=== PATIENT | female | born 1945 | race Caucasian/White ===

== ENCOUNTER 2017-12-29 20:06 | Inpatient (IN) | payer BC ==
[~2017-12-29] VITALS: Ht 157.5 cm; Wt 61.0 kg
[2017-12-29] VITALS (13 sets, daily range): BP systolic 139–268; BP diastolic 60–139
--- NOTE | ~2017-12-29 | CON ---
[place], [place] REPORT OF CONSULTATION NAME: CHARLES SINGH UNIT #: [id number] ROOM: 403 DOCTOR: AGUSTIN CHIRINOS MD BIRTHDATE: [birth year] DOS: 12/30/2017 REASON FOR CONSULTATION: Elevated troponin and shortness of breath. HISTORY OF PRESENT ILLNESS: This is a 72-year-old patient with history of hypertension, chronic kidney disease, dyslipidemia, came to the Emergency Room for sudden onset of shortness of breath. She was doing her house chores most of the day and suddenly became short of breath. The patient had no associated symptoms of any wheezing or hemoptysis. She presented to the Emergency Room and was admitted for shortness of breath and also atypical chest pain. Cardiology consulted for further recommendations. At the time of examination, the patient was alert. Denies any chest pains. Breathing is much better. Apparently at home when she has shortness of breath, she noted some chest discomfort in the midsternal area. She describes it as aching and tightness. No radiation. The pain lasted for several minutes. The pain was gradually relieved on its own. She denies any PND, orthopnea. No nausea, vomiting, diarrhea. No fever and chills. No cough, no hemoptysis, no hematuria or dysuria. The patient was on home oxygen. She has history of chronic renal failure, on hemodialysis. The patient still smokes at home. 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 She saw her sock and stocking ironer about 6 months ago and she did have a stress test around 6 months ago and as per her, it was unremarkable. REVIEW OF SYSTEMS: Review of the 10 systems negative except as mentioned above. PAST MEDICAL HISTORY: 1. Hypertension. 2. End-stage renal disease, on hemodialysis. 3. Dyslipidemia. 4. Diabetes type 2. 5. Family history of coronary artery disease. 6. Sinus bradycardia. 7. Psoriasis. 8. Diverticulitis. PAST SURGICAL HISTORY: History of dialysis catheter insertion in the right chest and also AV graft in the left wrist area. SOCIAL HISTORY: The patient does smoke cigarettes, does not drink or use illicit drugs. FAMILY HISTORY: Nil contributory. Father in his 70s from myocardial infarction. Mother had diabetes and coronary artery disease. ALLERGIES: The patient is allergic to PENICILLIN and ADHESIVE TAPE. HOME MEDICATIONS: Reviewed. PHYSICAL EXAMINATION: [place], [place] REPORT OF CONSULTATION NAME: CHARLES SINGH UNIT #: [id number] ROOM: [facility] DOCTOR: CANDIS BANGURAAGUSTIN BIRTHDATE: [birth year] VITAL SIGNS: Blood pressure 172/64, pulse 68, respiration rate is 18. GENERAL: Alert, comfortable, in no acute distress. NECK: Supple, no distended neck veins, no carotid bruit. CHEST: Symmetrical, nontender. The patient had a dialysis catheter in the right chest. LUNGS: A few scattered rhonchi, but good air entry bilaterally. HEART: Regular rhythm, no S3. Grade 1/6 systolic murmur. ABDOMEN: Benign, nontender. Bowel sounds normal. EXTREMITIES: Showed trace edema. Distal pulses palpable. SKIN: Warm and dry. No cyanosis, no clubbing. The patient had a left wrist area AV fistula. NEUROLOGIC: Alert and oriented. No focal neurologic deficit. RECTAL: Deferred. GENITOURINARY: Deferred. REVIEW OF THE DIAGNOSTIC TESTS: EKG shows sinus rhythm with LV hypertrophy with lateral ST-T changes. Her CBC, chemistry and cardiac enzymes reviewed. IMPRESSION: 1. Acute on chronic diastolic heart failure. 2. Borderline elevation of troponin. 3. Atypical chest pain. 4. Hypertension. 5. End-stage renal disease, on hemodialysis. 6. Tobacco use. 7. Sinus bradycardia. 8. Abnormal EKG due to left ventricular hypertrophy. 9. Diabetes type 2. RECOMMENDATIONS: 1. Start her aspirin 81 mg once daily and continue her beta nicole, labetalol, discontinue metoprolol. 2. Resume her home statins. 3. For blood pressure control, continue her lisinopril and amlodipine. 4. Continue hemodialysis for fluid removal. 5. A 2D echo will be done and pending. 6. Try to obtain her records from her sock and stocking ironer in [place], [place], especially her recent stress test around 07/2017. 7. No further cardiac testing at this time and this was discussed with the patient and all questions were answered. 8. She can be transferred to telemetry bed. [place], [place] REPORT OF CONSULTATION NAME: CHARLES SINGH UNIT #: [id number] ROOM: 403 DOCTOR: AGUSTIN CHIRINOS MD BIRTHDATE: [birth year] AGUSTIN CHIRINOS MD CM:CONSTR:REPORT OF CONSULTATION 2117 12/31/17 1600 interface
--- NOTE | ~2017-12-29 | EKG ---
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
--- NOTE | ~2017-12-29 | PR ---
[place], [place] PROGRESS NOTE NAME: CHARLES SINGH UNIT #: [id number] ROOM: 403 DOCTOR: AGUSTIN CHIRINOS MD BIRTHDATE: [birth year] DOS: 12/30/2017 REASON FOR VISIT: Hypertension and CHF. HISTORY OF PRESENT ILLNESS: The patient is feeling better. Denies any chest pain, shortness of breath, no palpitation, no dizziness, no orthopnea. Blood pressure still running high. REVIEW OF SYSTEMS: Review of the 8 systems negative except as mentioned above. PHYSICAL EXAMINATION: VITAL SIGNS: Systolic pressure 133-180, diastolic pressure of 55-70. Rhythm strips, the patient in sinus rhythm. GENERAL: Alert, comfortable, in no acute distress. NECK: Supple, no distended neck veins, no carotid bruit. CHEST: Symmetrical, nontender. Grade 3/6 systolic ejection murmur. LUNGS: Clear to auscultation bilaterally. HEART: Regular rhythm, no S3, no palpable thrills. ABDOMEN: Benign, nontender. Bowel sounds normal. EXTREMITIES: Show no edema. Distal pulses are palpable. SKIN: Warm and dry. No cyanosis, no clubbing. MEDICATIONS AND ALLERGIES: Reviewed. LABORATORY DATA: Reviewed. IMPRESSION: 1. Acute on chronic diastolic heart failure. 2. Accelerated hypertension. 3. End-stage renal disease, on dialysis. 4. Chronic obstructive pulmonary disease. 5. Tobacco use. 6. Valvular heart disease, at least moderate aortic stenosis. 2D echo is pending. RECOMMENDATIONS: Increase her amlodipine to 10 mg for blood pressure control. Continue her dialysis for fluid removal. The patient counseled to quit smoking. No further cardiac testing at this time. The patient did have a stress test around 07/2017 and reports were requested, especially to follow with her personal injury attorney in [place], [place] after the discharge. A 2D echo was done and pending. [place], [place] PROGRESS NOTE NAME: CHARLES SINGH UNIT #: [id number] ROOM: 403 DOCTOR: AGUSTIN CHIRINOS MD BIRTHDATE: [birth year] AGUSTIN CHIRINOS MD CM:NIKIATRANS [phone] AGUSTIN CHIRINOS MD 01/01/18 0730 interface
--- NOTE | ~2017-12-29 | EKG ---
[place], [place] ELECTROCARDIOGRAM REPORT NAME: CHARLES SINGH UNIT #: [id number] ROOM: 403 DOCTOR: DERIK DRAFT REPORT BIRTHDATE: [birth year] [facility] Test Date: 2017-12-29 Test Time: 21:03:01 Pat Name: CHARLES SINGH Department: Room: 403 Gender: F Builder Beam: SS RESP : 1945 Requested By: KIRBY HARDING Order Number: [id number] Reading MD: Abram Dotson MD Measurements Intervals [place] Rate: 75 P: 75 [place]: 138 QRS: 63 QRSD: 88 T: 167 QT: 399 QTc: 446 Interpretive Statements Sinus rhythm Biatrial enlargement LVH with secondary repolarization abnormality Electronically Signed On 01-01-2018 11:55:47 PDT by Abram Dotson MD CM:EKGRPT:ELECTROCARDIOGRAM REPORT 02 1155 KIRBY UMANZOR DRAFT REPORT KIRBY HARDING DO
--- NOTE | ~2017-12-29 | PR ---
[place], [place] [facility]GRESS NOTE [id number] UNIT #: [id number] ROOM: 403 DOCTOR: ELOISA ULRICH MD,MALINDA BIRTHDATE: [birth year] DOS: 12/31/2017 SUBJECTIVE: The patient was independently seen and examined in [id number] encounter. The patient today's pulmonary assessment. The history was assessed rather taken from the patient. Physical examination performed. Labs reviewed. Assessment and management of the patient personally completed. Note done by the medical officer psychiatry, was approved. The patient has been showing significant improvement in the respiratory status in the last 24 hours. She has a CTA of the chest done yesterday that shows evidence of bilateral pleural fluid, basilar area of compression atelectasis related to that. There was no evidence of pulmonary embolism. PHYSICAL EXAMINATION: VITAL SIGNS: Reviewed and noted as blood pressure 180/90. The remaining vital signs were normal. The pulse oxygen saturation noted as 94% on 3 liters cannula. LUNGS: The patient was noted without any wheeze or crackles. ABDOMEN: Soft, nontender. EXTREMITIES: No acute edema. LABORATORY DATA: BMP today: BUN 26, creatinine 4.12. IMPRESSION: Status post hemodialysis yesterday with bilateral pleural fluid with acute flash pulmonary edema, pleural fluid, basilar area of atelectasis, acute respiratory failure, resolved. PLAN OF MANAGEMENT: The patient could be discharged home per primary care team for this patient to be followed up by the Nephrology services and primary care physician. MALINDA AMIN MD CM:PNTRANS [id number] MALINDA ULRICH MD 12/31/17 1328 interface
--- NOTE | ~2017-12-29 | EKG ---
[place], [place] ELECTROCARDIOGRAM REPORT NAME: CHARLES SINGH UNIT #: [id number] ROOM: 403 DOCTOR: DERIK DRAFT REPORT BIRTHDATE: [birth year] [facility] Test Date: 2017-12-29 Test Time: 20:12:22 Pat Name: CHARLES SINGH Department: Room: 403 Gender: F Media Relations Associate: : 1945 Requested By: KIRBY HARDING Order Number: [id number] Reading MD: Abram Dotson MD Measurements Intervals [place] Rate: 108 P: 68 DE: 182 QRS: 71 QRSD: 91 T: 231 QT: 327 QTc: 439 Interpretive Statements Sinus tachycardia Biatrial enlargement Probable LVH with secondary repol abnrm Anterior ST elevation, probably due to LVH Electronically Signed On 01-01-2018 11:55:29 PDT by Abram Dotson MD CM:EKGRPT:ELECTROCARDIOGRAM REPORT 11 1155 KIRBY UMANZOR DRAFT REPORT KIRBY HARDING DO
--- NOTE | ~2017-12-29 | PR ---
[place], [place] PROGRESS NOTE NAME: CHARLES SINGH UNIT #: [id number] ROOM: 403 DOCTOR: AGUSTIN CHIRINOS MD BIRTHDATE: [birth year] DOS: 01/02/2018 REASON FOR VISIT: Valvular heart disease and hypertension. HISTORY OF PRESENT ILLNESS: The patient is feeling better. Denies any chest pain or palpitations. Her breathing is better. No dizziness. She is anticipating discharge home today. REVIEW OF SYSTEMS: Review of the 8 systems negative except as mentioned above. RHYTHM STRIPS: The patient is in sinus rhythm. PHYSICAL EXAMINATION: VITAL SIGNS: Blood pressure 142/56, pulse 56, respiration is 18. GENERAL: Alert, comfortable, in no acute distress. HEAD AND NECK: Neck is supple. No distended neck veins. No carotid bruit. CHEST: Nontender. LUNGS: Clear to auscultation bilaterally. HEART: Regular rhythm. No S3. Grade 3/6 systolic ejection murmur heard all over the precardium. No palpable thrills. ABDOMEN: Nontender. Bowel sounds normal. EXTREMITIES: Showed no edema. Distal pulses palpable. SKIN: Warm and dry. No cyanosis. No clubbing. MEDICATIONS: Reviewed. LABORATORY DATA: Reviewed. IMPRESSION: 1. Valvular heart disease with moderate aortic stenosis. 2. Accelerated hypertension, currently stable. 3. Sinus bradycardia, mild, asymptomatic. 4. Tobacco use. 5. Chronic obstructive pulmonary disease. 6. End-stage renal disease, on hemodialysis. RECOMMENDATIONS: 1. Blood pressure is stable. The patient has mild bradycardia and currently asymptomatic. 2. Continue current cardiac medications. 3. The patient counseled to quit smoking. 4. She can be discharged home today and follow with [facility] in 2-4 weeks. [place], [place] PROGRESS NOTE NAME: CHARLES SINGH UNIT #: [id number] ROOM: 403 DOCTOR: AGUSTIN CHIRINOS MD BIRTHDATE: [birth year] AGUSTIN CHIRINOS MD CM:PNTRANS [id number] AGUSTIN CHIRINOS MD 01/03/18 0453 interface
--- NOTE | ~2017-12-29 | PR ---
[place], [place] PROGRESS NOTE NAME: CHARLES SINGH UNIT #: [id number] ROOM: 403 DOCTOR: ELOISA ULRICH MD,MALINDA BIRTHDATE: [birth year] DOS: 01/01/2018 SUBJECTIVE: The patient was independently seen and examined, lbvg-[id number] encounter, history was confirmed. Labs reviewed for assessment and management personally completed. Note done by the medical reception specialist approved. She has been receiving hemodialysis today, but not discharged home yesterday because of uncontrolled hypertension with chest pain medication continued. Denies any shortness of breath, coughing, chest pain at this time. OBJECTIVE: VITAL SIGNS: This morning, normal temperature, respiratory rate 18, heart rate of 62, blood pressure 156/75 and earlier noted at 3:32 a.m. at 170/70. The pulse oxygen saturation recorded as 94% on room air. HEENT: Examination shows head was atraumatic. Eyes nonicterus. NECK: Supple. CARDIOVASCULAR: S1, S2 is audible. LUNGS: Noted without any wheeze or crackles. ABDOMEN: Soft, nontender. EXTREMITIES: Without any acute edema. IMPRESSION: Flash pulmonary edema, respiratory failure with bilateral pleural fluid with possibly superimposed congestive heart failure, history of end-stage renal failure. PLAN OF MANAGEMENT: Obtain PA lateral chest x-ray today. The patient after completion of hemodialysis to assess the resolution of the pleural fluid. There was no plan of intervention at this time. The patient is not responding to the current treatment. MALINDA AMIN MD CM:PNTRANS [id number] MALINDA ULRICH MD 01/23/18 0855 interface
--- NOTE | ~2017-12-29 | PR ---
[place], [place] PROGRESS NOTE NAME: CHARLES SINGH UNIT #: [id number] ROOM: 403 DOCTOR: ANDREY ARAUZ DO BIRTHDATE: [birth year] DOS: 01/01/2018 SUBJECTIVE: The patient was seen and examined during hemodialysis. She does complain of shortness of breath as well as a nonproductive cough today. She denies any fevers, chills, chest pain, nausea, abdominal pain or any change in bowel or bladder habits. She was not cleared for discharge yesterday due to her elevated blood pressures. Her systolic blood pressures had been running even in the 180s to 200s. The patient states that it is not uncommon for her to have systolic blood pressures in the 200s. OBJECTIVE: VITAL SIGNS: Last temperature was recorded at 97.6 degrees Fahrenheit, heart rate was 70, respiratory rate was 18, blood pressure was 170/70, pulse oximetry was 93% on room air. GENERAL APPEARANCE: She was awake, alert, responsive and cooperative. The patient was in no acute distress. HEENT: The head was normocephalic and atraumatic. The eyes were without lesions or ulcerations. NECK: The trachea appeared midline. CARDIOVASCULAR: Regular rate and rhythm were noted. Positive S1 and S2 sounds were heard. A grade 3/6 systolic murmur was auscultated. Both lower extremities were without edema. PULMONARY: Lungs were clear to auscultation bilaterally. ABDOMEN: Soft, nondistended and nontender to palpation. Bowel sounds were auscultated. EXTREMITIES: The bilateral lower extremities were without edema. No clubbing, cyanosis or erythema was present. A dialysis catheter was present to the right chest. LABORATORY DATA: CBC from today shows white count at 6.2, hemoglobin at 11.3, hematocrit at 34.8, platelets at 244. Chemistries from today shows sodium at 136, potassium at 4.7, chloride at 102, bicarbonate at 24, BUN at 50, creatinine at 5.47, glucose at 123, calcium at 8.9, phosphorus at 6.6, magnesium at 2.5. MICROBIOLOGY: Final blood cultures showed no bacterial growth. IMPRESSION: 1. Acute respiratory failure secondary to flash pulmonary edema likely as a result of the patient's hypertensive emergency on admission and this has clinically improved. 2. Hypertension. 3. End-stage renal disease, on hemodialysis. 4. History of chronic obstructive pulmonary disease. 5. Tobacco abuse. PLAN OF MANAGEMENT: A followup chest x-ray was ordered to evaluate for the status of any pleural effusions. The Cardiology and Nephrology services are also following the patient and it is noted that her current regimen of antihypertensives includes amlodipine 10 mg daily, clonidine 0.1 mg every 6 hours, hydralazine 25 mg every 8 hours, lisinopril 10 mg daily, and labetalol [place], [place] PROGRESS NOTE NAME: CHARLES SINGH UNIT #: [id number] ROOM: [facility] DOCTOR: ANDREY ARAUZ DO BIRTHDATE: [birth year] 200 mg every 12 hours and appears that the patient is pending an echocardiogram and also the patient did not qualify for home oxygen by her assessment yesterday. Andrey Arauz DO MALINDA AMIN MD CM:PNTRANS [id number] ANDREY ARAUZ DO 01/01/18 1113 interface
--- NOTE | ~2017-12-29 | PR ---
[place], [place] PROGRESS NOTE NAME: [id number] UNIT #: [id number] ROOM: 403 DOCTOR: ANDREY ARAUZ DO BIRTHDATE: [birth year] DOS: 12/31/2017 SUBJECTIVE: The patient was seen and examined at the bedside today. She denies fevers, chills, chest pain, palpitations, shortness of breath, coughing, wheezing, nausea, abdominal pain or any changes in bowel or bladder function. The patient states that she wishes to be discharged home today. She states that she may benefit from use of supplemental oxygen at home. OBJECTIVE: VITAL SIGNS: Show temperature at 98.5 degrees Fahrenheit, heart rate at 69, respiratory rate at 16, blood pressure at 180/80, pulse oximetry at 94% on 3 liters via nasal cannula. GENERAL APPEARANCE: She was awake, alert, responsive, cooperative and in no acute distress. HEENT: The head was normocephalic and atraumatic. The eyes were without lesions or ulcerations. NECK: Trachea appeared midline. CARDIOVASCULAR: Regular rate and rhythm were noted. A grade 3/6 systolic murmur was auscultated. Positive S1 and S2 sounds were heard. Both lower extremities were without edema for. PULMONARY: The lungs were clear to auscultation bilaterally. ABDOMEN: Soft, nondistended and nontender to palpation. Bowel sounds were auscultated. EXTREMITIES: The bilateral lower extremities were without edema. No clubbing, cyanosis or erythema was present. A dialysis catheter was present to the right chest. LABORATORY DATA: CBC from today shows white count at 6.7, hemoglobin at 11.8, hematocrit at 36.3, platelets at 259. Chemistries from today show sodium at 138, potassium at 4.0, chloride at 101, bicarbonate at 27, BUN at 26, creatinine at 4.12, glucose at 97, calcium at 9.3. IMPRESSION: 1. Pulmonary edema, which is improved. 2. History of chronic obstructive pulmonary disease. 3. Tobacco abuse. 4. End-stage renal disease, on hemodialysis. 5. Newly diagnosed diabetes. 6. Chest pain. 7. Hypertensive emergency. PLAN OF MANAGEMENT: The patient remains on bronchodilator therapy. Cardiology service is following for the patient's chest pain and they have also made changes to the patient's regimen of antihypertensives. She is currently on lisinopril 10 mg daily, amlodipine 5 mg daily and labetalol 200 mg twice a day. An echocardiogram is pending. The Nephrology Service is following for the patient's end-stage renal disease on hemodialysis and she received a session of hemodialysis yesterday. CTA performed yesterday on 12/30/2017 showed no evidence for pulmonary embolism. From a pulmonary standpoint, the patient is stable for discharge and an order has been placed to assess for home O2. [place], [place] PROGRESS NOTE NAME: CHARLES SINGH Chris UNIT #: [id number] ROOM: [facility] DOCTOR: ANDREY ARAUZ DO BIRTHDATE: [birth year] Andrey Arauz DO MALINDA AMIN MD CM:PNTRANS [id number] ANDREY ARAUZ DO 12/31/17 1105 interface
--- NOTE | ~2017-12-29 | PR ---
[place], [place] PROGRESS NOTE NAME: CHARLES SINGH UNIT #: [id number] ROOM: 403 DOCTOR: ANDREY ARAUZ DO BIRTHDATE: [birth year] DOS: 01/02/2018 SUBJECTIVE: The patient was seen and examined at the bedside. The patient states that she is feeling well today. She denies any fevers, chills, chest pain, shortness of breath, coughing, wheezing, abdominal pain, nausea or any changes in bowel or bladder habits. She is eager for discharge from the hospital. OBJECTIVE: VITAL SIGNS: Show temperature at 97.7 degrees Fahrenheit, heart rate at 56, respiratory rate at 18, blood pressure at 142/50, pulse oximetry at 96% on room air. GENERAL APPEARANCE: The patient was awake, alert, responsive and cooperative. She was in no acute distress. HEENT: Head was normocephalic and atraumatic. Eyes were without lesions or ulcerations. NECK: Trachea appeared midline. CARDIOVASCULAR: Regular rate and rhythm were noted. Positive S1 and S2 sounds were heard. A grade 3/6 systolic murmur was auscultated. Both lower extremities were without edema. PULMONARY: Lungs were clear to auscultation bilaterally. ABDOMEN: Soft, nondistended, nontender to palpation. Bowel sounds were auscultated. EXTREMITIES: Bilateral lower extremities were without edema. No clubbing, cyanosis or erythema was present. A dialysis catheter was present in the right chest. LABORATORY DATA: Most recent CBC from yesterday 01/01/2018 showed white count at 6.2, hemoglobin at 11.3, hematocrit at 34.8, platelets at 244. Most recent chemistries from 01/01/2018 yesterday showed sodium at 136, potassium at 4.7, chloride at 102, bicarbonate at 24, BUN at 50, creatinine at 5.47, glucose at 123, calcium at 8.9, phosphorus at 6.6, magnesium at 2.5. MICROBIOLOGY: Again, final blood culture showed no bacterial growth. IMAGING STUDIES: A chest x-ray obtained yesterday on 01/01/2018 showed chronic and operative thoracic change, this was regarding the right-sided vascular catheter for dialysis. Otherwise, no acute process was demonstrated on that chest x-ray. IMPRESSION: 1. Acute respiratory failure secondary to flash pulmonary edema. 2. Hypertension. 3. End-stage renal disease, on hemodialysis. 4. History of chronic obstructive pulmonary disease. 5. Tobacco abuse. PLAN OF MANAGEMENT: Again, the plain film of the chest obtained yesterday showed no pleural fluid. The Nephrology service has been following the patient for her end-stage renal disease on hemodialysis and they have also been managing [place], [place] PROGRESS NOTE NAME: CHARLES SINGH UNIT #: [id number] ROOM: [facility] DOCTOR: ANDREY ARAUZ DO BIRTHDATE: [birth year] her hypertension. Nephrology has indicated that the patient is stable for discharge from their standpoint. In addition, the Cardiology service has also been following the patient for suspected heart failure and they have also made adjustments to the patient's antihypertensive regimen. It appears that the patient's blood pressures since yesterday afternoon have remained relatively stable. Lastly, from a pulmonary standpoint, the patient is also stable for discharge. Andrey Arauz DO MALINDA AMIN MD CM:TERESSA [id number] ANDREY ARAUZ DO 01/02/18 1120 interface
--- NOTE | ~2017-12-29 | CON ---
[place], [place] REPORT OF CONSULTATION NAME: CHARLES SINGH UNIT #: [id number] ROOM: 403 DOCTOR: ELOISA ULRICH MDMALINDA BIRTHDATE: [birth year] DOS: 12/30/2017 PULMONARY CONSULTATION, EVALUATION AND MANAGEMENT CONSULTATION REQUESTED BY: Hospitalist services. REASON FOR CONSULTATION: For assessment of current acute respiratory failure assessment and management. HISTORY OF PRESENT ILLNESS: This is a 72-year-old white female patient who has been assessed today as the patient has been reported with symptoms of increased shortness of breath. Shortness of breath has been noted certainly of this patient at home in the morning. The patient stated that she has been noted with some cough and smoked a couple of cigarettes of her son. She denies symptoms of chest pain or hemoptysis. Shortness of breath has been noted significantly worsened. The patient has contacted the ambulance and brought to the hospital on 100% nonrebreather mask. The patient was admitted to the Intensive Care Unit for further assessment and medical management of the current problems. The EMS documentation was not available for the patient at this time. The triage nurses' report stated that the patient was noted with a dusky lip and she was brought to the hospital on 100% nonrebreather mask and also noted with an inability to obtain the blood pressure by the EMS. The patient given 1 tablet of sublingual nitroglycerin tablet. The respiratory rate of the patient recorded as 30 breaths per minute. The blood pressures, which were recorded in the Emergency Room on admission was noted as 265/137. The patient reported symptoms of tightness in the chest and the chest pain, which was described across the chest and the midsternal area and on the sides. The pain was described to be nonradiating, mild to moderate and pressure-like as well. She denies symptoms of wheezing. The cough has been noted minimal without any sputum expectoration. REVIEW OF SYSTEMS: CONSTITUTIONAL SYMPTOMS: Fatigue and tiredness noted without any symptoms of fever or chills. EYES: Denies any burning, redness, or tenderness. EARS, NOSE, THROAT SYMPTOMS: Denies sore throat, hoarseness, otalgia, postnasal drainage or epistaxis. CARDIOVASCULAR SYSTEM: Denies angina pain, edema, or pain of the lower extremity. GASTROINTESTINAL SYMPTOMS: Denies dysphagia, nausea, vomiting, diarrhea, abdominal pain, hematemesis, melena, or hematochezia. SKIN: Denies abnormal lesions or rashes. MUSCULOSKELETAL SYMPTOMS: No acute joint pain, redness, or tenderness. CENTRAL NERVOUS SYSTEM: Denies dizziness, headache, diplopia or syncopal episodes. Remaining systems were reviewed, they were noted all negative. PAST MEDICAL HISTORY: 1. Known with history of end-stage renal failure, on hemodialysis. [place], [place] REPORT OF CONSULTATION NAME: CHARLES SINGH UNIT #: [id number] ROOM: 403 DOCTOR: ELOISA ULRICH MD,[facility] BIRTHDATE: [birth year] 2. The patient with a history of chronic obstructive pulmonary disease. 3. Type 2 diabetes mellitus. 4. Diverticulosis and diverticulitis history. 5. Hyperlipidemia. 6. Psoriatic arthritis. SOCIAL HISTORY: The patient lives at home. She has been known with tobacco use. The patient previously stated is not smoking cigarettes until yesterday, she has smoked couple of cigarettes. She used to smoke about a pack of cigarettes per day. Denies any alcohol or any illicit drug use. FAMILY HISTORY: The patient's father at the age of 70 plus years due to complication of myocardial infarction. Mother with complication related to coronary artery disease and diabetes mellitus. HOME MEDICATIONS: Listed on admission; use of Renvela, tramadol, Lipitor, amlodipine, atorvastatin, Plavix, labetalol and metoprolol tartrate. DRUG ALLERGIES: THE PATIENT WAS NOTED ALLERGIC TO PENICILLINS. PHYSICAL EXAMINATION: GENERAL: This is a 72-year-old female patient who has been currently noted awake and alert without any acute distress. Height of 5 feet 2 inches, weight of 131 pounds, BMI 24. VITAL SIGNS: Shows a normal temperature, respiratory rate of 18 and 33 noted on admission. The heart rate of the patient noted as 111, sinus tachycardia and currently noted 54 beats per minute with bradyarrhythmia appeared to be sinus bradycardia. The blood pressure noted on admission was 265/137 and this morning noted as 172/89. Pulse oxygen saturation noted with the BiPAP as 92% saturation. This morning, resting on room air, the patient was recorded as 92% without any activity. HEENT: Head was atraumatic. Eyes nonicterus. NECK: Supple. CARDIOVASCULAR SYSTEM: S1, S2 audible. LUNGS: Noted with mild decreased breaths in the lung bases. There was no wheezing or crackles. Good breath sounds noted in the lungs bilaterally. ABDOMEN: Flat, soft, nontender. EXTREMITIES: Noted without any acute edema, clubbing or cyanosis. VISIBLE SKIN: No lesions or rashes. MUSCULOSKELETAL SYSTEM: Without any acute deformities. Cranial nerves 2-12 intact. LABORATORY DATA: CBC yesterday on admission; WBC count 16.2, hemoglobin and hematocrit normal, platelet count were normal. PT/PTT was noted as normal. The CMP that was done yesterday shows BUN 52, creatinine 6.80. Potassium was 5.6. The arterial blood gas that was done yesterday; 50% oxygen, pH of 7.30, pCO2 of 43.9, pO2 100. Lactic acid was noted yesterday at 0.7. The CBC of 12/30/2017 noted normal WBC count, hemoglobin 11.5, platelet count normal. CMP this morning; BUN 58, creatinine 7.0. Potassium is still elevated at 5.5. The chest x-ray 1 view that was done in the Emergency Room noted normal heart size with [place], [place] REPORT OF CONSULTATION NAME: CHARLES SINGH UNIT #: [id number] ROOM: 403 DOCTOR[facility] BIR[facility]: [birth year] pulmonary venous congestion marking noted, dialysis catheter noted in place with a right internal jugular venous approach. IMPRESSION: 1. The patient will be currently admitted to the hospital. The patient developed acute pulmonary edema as a result of hypertensive emergency. This had resulted in respiratory failure with interstitial edema. There was no clinical evidence of pneumonia at this time. The diagnosis of pulmonary embolism would be considered for the patient beside the flash pulmonary edema because of significant hypoxia noted on admission with the current chest pain. Cardiac enzymes that was done noted as normal. 2. History of nicotine abuse and chronic obstructive lung disease, does not seem to have acute exacerbation contributing to her current acute shortness of breath and other respiratory problems. 3. The patient with hyperkalemia related to the end-stage renal failure as well. PLAN OF MANAGEMENT: The patient's blood pressure has been treated with intravenous nitroglycerin and labetalol intravenous management. She has been getting antibiotic empirically for the pneumonia and that will be discontinued. CT of the chest has been ordered prior to the dialysis, which will be given today for the patient to exclude pulmonary embolism, other etiologies, which are not visible in the chest x-ray including possible pneumonia and other findings. Usual care, other supportive therapy, plan of management, complete abstinence of tobacco in the future was recommended. Use of the BiPAP as needed at this time for respiratory distress. Continue maximizing medical management of uncontrolled hypertension, which has been gradually improving. Sinus tachycardia has improved. Currently, noted sinus bradyarrhythmia with normal blood pressure range. The bradyarrhythmia does not require any intervention. Hemodialysis per order from Nephrology services will be continued. Other additional treatment changes continued to be made based on progression of the illness. Supportive care. DVT prophylaxis for the patient would be given as well. Other additional treatment changes will be ordered based on the progression of the illness. Thanks for allowing me to participate in the care of this patient. MALINDA AMIN MD CM:CONSTR:REPORT OF CONSULTATION 1304 12/30/17 9909 interface
--- NOTE | ~2017-12-29 | PR ---
[place], [place] PROGRESS NOTE NAME: CHARLES SINGH UNIT #: [id number] ROOM: 403 DOCTOR: ELOISA ULRICH MD,MALINDA BIRTHDATE: [birth year] DOS: 01/02/2018 SUBJECTIVE: The patient has been noted comfortable at this time without any acute distress, not reported with any acute new respiratory complaints, was eager for home discharge. She was independently seen and examined in gyil-sn-adec encounter, history was confirmed. Physical examination performed. Labs reviewed. The note done by the medical logistics specialist approved. The patient continued to show improvement in the respiratory symptom with flash pulmonary edema, improving pleural fluid. History of end-stage renal failure, resolving hemodialysis. The blood pressure has been noted progressively better controlled this morning, blood pressure noted 142/50. The patient would not require pulmonary followup and especially continued on current therapy as previously without any changes. MALINDA AMIN MD CM:PNTRANS [id number] MALINDA ULRICH MD 01/02/18 1329 interface
--- NOTE | ~2017-12-29 | PR ---
[place], [place] PROGRESS NOTE NAME: CHARLES SINGH UNIT #: [id number] ROOM: 403 DOCTOR: CANDIS BANGURA,AGUSTIN BIRTHDATE: [birth year] DOS: ADDENDUM PHYSICAL EXAMINATION: Grade 3/6 systolic ejection murmur. DIAGNOSTIC IMPRESSION: Valvular heart disease, at least moderate aortic stenosis. 2D echo is pending. RECOMMENDATIONS: A 2D echo was done and pending. AGUSTIN CHIRINOS MD CM:PNTRANS [phone] AGUSTIN CHIRINOS MD 01/01/18 0731 interface
--- NOTE | ~2017-12-29 | PR ---
[place], [place] PROGRESS NOTE NAME: CHARLES SINGH UNIT #: [id number] ROOM: 403 DOCTOR: AGUSTIN CHIIRNOS MD BIRTHDATE: [birth year] DOS: 01/01/2018 CARDIOLOGY FOLLOWUP VISIT NOTE REASON FOR VISIT: Congestive heart failure and valvular heart disease. SUBJECTIVE: The patient is feeling better. Denies any chest pain, shortness of breath, no dizziness, no syncope, no orthopnea. Her blood pressure has been running high. Today, she went for dialysis. REVIEW OF SYSTEMS: Review of the 10 systems negative except as mentioned above. PHYSICAL EXAMINATION: RHYTHM STRIPS: The patient is in sinus rhythm. VITAL SIGNS: Blood pressure 170/76, pulse 70, respiratory rate 16, weight 58.4 kilos. GENERAL: Alert, comfortable, in no acute distress. NECK: Supple, no distended neck veins, no carotid bruit. CHEST: Symmetrical, nontender. LUNGS: A few scattered rhonchi. HEART: Regular rhythm, no S3, no palpable thrills. A grade 3/6 systolic ejection murmur. ABDOMEN: Nontender. Bowel sounds normal. EXTREMITIES: Showed no edema. Distal pulses palpable. SKIN: Warm and dry. No cyanosis, no clubbing. RECTAL: Deferred. REVIEW OF DIAGNOSTIC TESTS: Labs reviewed as available. MEDICATIONS: Reviewed. IMPRESSION: 1. Acute on chronic diastolic heart failure, stable. 2. Moderate aortic stenosis. 3. End-stage renal disease, on hemodialysis. 4. Hypertension, which needs better control. Increase the hydralazine to 50 mg 3 times a day. RECOMMENDATIONS: 1. Continue her lisinopril, labetalol, Norvasc. 2. Clonidine was added by Dr. Wilson. 3. If the blood pressure is relatively stable, she can be discharged home today and follow up with [facility] in 2-3 weeks. The case was discussed with resident physicians and also Dr. Wilson, staff cementing bulk material operator. [place], [place] PROGRESS NOTE NAME: CHARLES SINGH UNIT #: [id number] ROOM: 403 DOCTOR: AGUSTIN CHIRINOS MD BIRTHDATE: [birth year] AGUSTIN CHIRINOS MD CM:TERESSA [id number] AGUSTIN CHIRINOS MD 02/24/18 0801 interface
[~2017-12-29 20:06] MED LIST: NO DAILY MEDS
[2017-12-29] MEDS ORDERED: CLOPIDOGREL75 MG PO (20:27)
[2017-12-29] MEDS ORDERED: AMLODIPINE BESYL5 MG PO (20:27)
[2017-12-29] MEDS ORDERED: LABETALOL HCL200 MG PO (20:27)
[2017-12-29 20:28] LABS: BASO % 0.2 % (0.0-1.0); EOS # 0.7 10*3/uL (0.0-0.4); EOS % 4.3 % (1.0-4.0); HEMATOCRIT 42.1 % (37.0-47.0); HEMOGLOBIN 13.7 g/dl (12.0-16.0); LYMPH # 3.4 10*3/uL (1.3-4.4); LYMPH % 20.7 % (27.0-41.0); MEAN CELL VOLUME 100.5 fl (81.0-99.0); MEAN CORPUSCULAR HGB 32.7 pg (27.0-31.0); MEAN CORPUSCULAR HGB CONC 32.5 g/dl (33.0-37.0); MEAN PLATELET VOLUME 10.2 fl (9.6-12.3); MONO # 0.8 10*3/uL (0.1-1.0); MONO % 5.2 % (3.0-9.0); NEUT # 11.2 10*3/uL (2.3-7.9); NEUT % 69.2 % (47.0-73.0); PLATELET COUNT AUTOMATED 302 10*3/uL (130-400); RED BLOOD COUNT 4.19 10*6/uL (4.10-5.10); RED CELL DISTRI WIDTH 13.6 % (0-14.5); WHITE BLOOD COUNT 16.2 10*3/uL (4.8-10.8)
[2017-12-29 20:43] LABS: ACT PARTIAL THROMBO TIME 23.3 SECONDS (20.8-31.5); INTERNATIONAL NORM RATIO 0.9 (2.0-3.5)
[2017-12-29 20:45] LABS: ALBUMIN 3.6 gm/dl (3.1-4.5); CREATININE 6.8 mg/dL (0.55-1.02); POTASSIUM 5.6 mmol/L (3.5-5.1); TOTAL PROTEIN 8.3 gm/dL (6.4-8.2)
[2017-12-29 20:46] LABS: TROPONIN I 0.023 ng/ml (<0.045)
[2017-12-29 21:24] LABS: ABG BASE EXCESS -4.8 mmol/L (-2.0-2.0); ABG HCO3 20.8 mmol/l (22-26); ABG O2 SATURATION 96.9 % (95-97); ARTERIAL BLOOD GAS PCO2 43.9 mmHg (35-45); ARTERIAL BLOOD GAS PH 7.3 (7.35-7.45)
[2017-12-30] VITALS: BP 131/62
[2017-12-30 04:00] VITALS: BP 159/68
[2017-12-30 05:30] LABS: BASO % 0.2 % (0.0-1.0); EOS # 0.1 10*3/uL (0.0-0.4); EOS % 1.4 % (1.0-4.0); HEMATOCRIT 36.5 % (37.0-47.0); LYMPH # 2.2 10*3/uL (1.3-4.4); LYMPH % 24.3 % (27.0-41.0); MEAN CELL VOLUME 102.5 fl (81.0-99.0); MEAN CORPUSCULAR HGB 32.3 pg (27.0-31.0); MEAN CORPUSCULAR HGB CONC 31.5 g/dl (33.0-37.0); MEAN PLATELET VOLUME 10.3 fl (9.6-12.3); MONO # 0.8 10*3/uL (0.1-1.0); MONO % 8.7 % (3.0-9.0); NEUT # 5.9 10*3/uL (2.3-7.9); NEUT % 65.2 % (47.0-73.0); PLATELET COUNT AUTOMATED 239 10*3/uL (130-400); RED BLOOD COUNT 3.56 10*6/uL (4.10-5.10); RED CELL DISTRI WIDTH 13.6 % (0-14.5); WHITE BLOOD COUNT 9.1 10*3/uL (4.8-10.8)
[2017-12-30 05:36] LABS: HEMOGLOBIN 11.5 g/dl (12.0-16.0)
[2017-12-30 05:48] LABS: ALBUMIN 3.1 gm/dl (3.1-4.5); POTASSIUM 5.5 mmol/L (3.5-5.1); TOTAL PROTEIN 6.9 gm/dL (6.4-8.2)
[2017-12-30 05:52] LABS: THYROID STIM HORMONE (HS) 0.82 uIU/ml (0.358-4.75)
[2017-12-30 05:56] LABS: PHOSPHOROUS 9.2 mg/dL (2.5-4.9)
[2017-12-30 08:00] VITALS: BP 172/64
[2017-12-30 08:40] LABS: VITAMIN D, 25-HYDROXY 36.5 ng/mL (30-100)
[2017-12-30] MEDS ORDERED: LIPITOR20 MG PO (09:10)
[2017-12-30] MEDS ORDERED: METOPROLOL25 MG PO (09:10)
[2017-12-30] MEDS ORDERED: TRAMADOL HCL50 MG PO (09:11)
[2017-12-30] MEDS ORDERED: RENVELA2.4 GM PO (09:13)
[2017-12-30] MEDS ORDERED: RENVELA800 MG PO (09:14)
[2017-12-30 12:00] VITALS: BP 172/89
[2017-12-30 16:00] VITALS: BP 168/68
[2017-12-30 16:52] LABS: BILIRUBIN NEGATIVE (NEGATIVE); BLOOD TRACE-INTACT (NEGATIVE); CLARITY CLEAR (CLEAR); COLOR YELLOW (YELLOW); GLUCOSE TRACE (NEGATIVE); KETONE NEGATIVE (NEGATIVE); LEUKO ESTERASE NEGATIVE (NEGATIVE); NITRITE NEGATIVE (NEGATIVE); UROBILINOGEN 0.2 E.U./dl (0.2-1.0)
[2017-12-30 20:00] VITALS: BP 133/61
[2017-12-31] VITALS (8 sets, daily range): BP systolic 101–200; BP diastolic 55–90
[2017-12-31 06:18] LABS: BASO % 0.3 % (0.0-1.0); EOS # 0.5 10*3/uL (0.0-0.4); EOS % 7.2 % (1.0-4.0); HEMATOCRIT 36.3 % (37.0-47.0); HEMOGLOBIN 11.8 g/dl (12.0-16.0); LYMPH # 2.2 10*3/uL (1.3-4.4); LYMPH % 33.1 % (27.0-41.0); MEAN CELL VOLUME 99.7 fl (81.0-99.0); MEAN CORPUSCULAR HGB 32.4 pg (27.0-31.0); MEAN CORPUSCULAR HGB CONC 32.5 g/dl (33.0-37.0); MEAN PLATELET VOLUME 10.5 fl (9.6-12.3); MONO # 0.7 10*3/uL (0.1-1.0); MONO % 10.1 % (3.0-9.0); NEUT # 3.3 10*3/uL (2.3-7.9); NEUT % 49.1 % (47.0-73.0); PLATELET COUNT AUTOMATED 259 10*3/uL (130-400); RED BLOOD COUNT 3.64 10*6/uL (4.10-5.10); RED CELL DISTRI WIDTH 13.5 % (0-14.5); WHITE BLOOD COUNT 6.7 10*3/uL (4.8-10.8)
[2017-12-31 06:47] LABS: CREATININE 4.12 mg/dL (0.55-1.02)
[2018-01-01] VITALS: BP 155/54
[2018-01-01 03:32] VITALS: BP 170/70
[2018-01-01 06:21] LABS: CREATININE 5.47 mg/dL (0.55-1.02); PHOSPHOROUS 6.6 mg/dL (2.5-4.9); POTASSIUM 4.7 mmol/L (3.5-5.1)
[2018-01-01 06:22] LABS: BASO % 0.2 % (0.0-1.0); EOS # 0.5 10*3/uL (0.0-0.4); EOS % 7.9 % (1.0-4.0); HEMATOCRIT 34.8 % (37.0-47.0); HEMOGLOBIN 11.3 g/dl (12.0-16.0); LYMPH # 1.9 10*3/uL (1.3-4.4); LYMPH % 31.2 % (27.0-41.0); MEAN CELL VOLUME 99.1 fl (81.0-99.0); MEAN CORPUSCULAR HGB 32.2 pg (27.0-31.0); MEAN CORPUSCULAR HGB CONC 32.5 g/dl (33.0-37.0); MEAN PLATELET VOLUME 10.9 fl (9.6-12.3); MONO # 0.6 10*3/uL (0.1-1.0); MONO % 10.2 % (3.0-9.0); NEUT # 3.1 10*3/uL (2.3-7.9); NEUT % 50.3 % (47.0-73.0); PLATELET COUNT AUTOMATED 244 10*3/uL (130-400); RED BLOOD COUNT 3.51 10*6/uL (4.10-5.10); RED CELL DISTRI WIDTH 13.4 % (0-14.5); WHITE BLOOD COUNT 6.2 10*3/uL (4.8-10.8)
[2018-01-01 12:00] VITALS: BP 156/75
[2018-01-01 16:00] VITALS: BP 139/57
[2018-01-01 20:00] VITALS: BP 144/49
[2018-01-02] VITALS: BP 152/42
[2018-01-02 08:33] VITALS: BP 142/50
[2018-01-02] MEDS ORDERED: AMLODIPINE BESY10 MG PO (10:13)
[2018-01-02] MEDS ORDERED: 'CLONIDINE0.1 MG PO (10:13)
[2018-01-02] MEDS ORDERED: ASPIRIN ADULT L81 M2 PO (10:13)
[2018-01-02] MEDS ORDERED: LISINOPRIL10 M1 PO (10:13)
[2018-01-02] MEDS ORDERED: HYDRALAZINE HYD50 MG PO (10:13)
== END 2018-01-02 11:20 | disposition home or self-care (01) | DRG 291 ==
LOC: ED 20:06 → ICCU 21:20 → 4E 21:20 → EDHOLD 21:20 → ICCU 22:10 → 4E 12-30 15:41
PROVIDERS: Emergency Medicine; Internal Medicine; Student in an Organized Health Care Education/Training Program
PROC: 5A09357 Assistance with Respiratory Ventilation, Less than 24 Consecutive Hours, Continuous Positive Airway Pressure (ICD-10-PCS; principal; 2017-12-29)
PROC: 5A1D70Z Performance of Urinary Filtration, Intermittent, Less than 6 Hours Per Day (ICD-10-PCS; 2017-12-30)
PROC: 5A1D70Z Performance of Urinary Filtration, Intermittent, Less than 6 Hours Per Day (ICD-10-PCS; 2018-01-01)
DX: I13.2 Hypertensive heart and chronic kidney disease with heart failure and with stage 5 chronic kidney disease, or end stage renal disease (principal); J18.9 Pneumonia, unspecified organism; J96.01 Acute respiratory failure with hypoxia; R65.11 Systemic inflammatory response syndrome (SIRS) of non-infectious origin with acute organ dysfunction; N18.6 End stage renal disease; I50.33 Acute on chronic diastolic (congestive) heart failure; I16.1 Hypertensive emergency; J44.0 Chronic obstructive pulmonary disease with (acute) lower respiratory infection; I38 Endocarditis, valve unspecified; Z99.2 Dependence on renal dialysis; R07.89 Other chest pain; E83.41 Hypermagnesemia; R74.0 Nonspecific elevation of levels of transaminase and lactic acid dehydrogenase [LDH]; E83.39 Other disorders of phosphorus metabolism; D63.8 Anemia in other chronic diseases classified elsewhere; R00.1 Bradycardia, unspecified; L40.50 Arthropathic psoriasis, unspecified; I35.0 Nonrheumatic aortic (valve) stenosis; E87.5 Hyperkalemia; F17.210 Nicotine dependence, cigarettes, uncomplicated; E11.22 Type 2 diabetes mellitus with diabetic chronic kidney disease; E78.5 Hyperlipidemia, unspecified; K57.90 Diverticulosis of intestine, part unspecified, without perforation or abscess without bleeding; Z82.49 Family history of ischemic heart disease and other diseases of the circulatory system; Z83.3 Family history of diabetes mellitus; Z79.899 Other long term (current) drug therapy; Z88.0 Allergy status to penicillin; Z79.84 Long term (current) use of oral hypoglycemic drugs; Z91.048 Other nonmedicinal substance allergy status; Z71.6 Tobacco abuse counseling

== ENCOUNTER 2018-05-28 08:51 | Emergency (ER) | payer BC ==
[~2018-05-28] VITALS: Wt 54.4 kg
--- NOTE | ~2018-05-28 | EKG ---
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
[~2018-05-28 08:51] MED LIST changes: +'CLONIDINE0.1 MG PO; +AMLODIPINE BESY10 MG PO; +AMLODIPINE BESYL5 MG PO; +ASPIRIN ADULT L81 M2 PO; +CLOPIDOGREL75 MG PO; +HYDRALAZINE HYD50 MG PO; +LABETALOL HCL200 MG PO; +LIPITOR20 MG PO; +LISINOPRIL10 M1 PO; +METOPROLOL25 MG PO; +RENVELA2.4 GM PO; +RENVELA800 MG PO; +TRAMADOL HCL50 MG PO
[2018-05-28 09:19] LABS: BASO % 0.1 % (0.0-1.0); EOS # 0.1 10*3/uL (0.0-0.4); EOS % 1.5 % (1.0-4.0); HEMOGLOBIN 10.3 g/dl (12.0-16.0); LYMPH # 1.2 10*3/uL (1.3-4.4); LYMPH % 14.8 % (27.0-41.0); MEAN CELL VOLUME 107.8 fl (81.0-99.0); MEAN CORPUSCULAR HGB 33.7 pg (27.0-31.0); MEAN CORPUSCULAR HGB CONC 31.2 g/dl (33.0-37.0); MEAN PLATELET VOLUME 10.2 fl (9.6-12.3); MONO # 0.6 10*3/uL (0.1-1.0); MONO % 7.6 % (3.0-9.0); NEUT # 6.2 10*3/uL (2.3-7.9); NEUT % 75.6 % (47.0-73.0); PLATELET COUNT AUTOMATED 309 10*3/uL (130-400); RED BLOOD COUNT 3.06 10*6/uL (4.10-5.10); RED CELL DISTRI WIDTH 17.9 % (0-14.5); WHITE BLOOD COUNT 8.2 10*3/uL (4.8-10.8)
[2018-05-28 09:57] LABS: ACT PARTIAL THROMBO TIME 24.3 SECONDS (20.8-31.5)
[2018-05-28 10:19] LABS: ALBUMIN 3.1 gm/dl (3.1-4.5); CREATININE 4.23 mg/dL (0.55-1.02); POTASSIUM 4.6 mmol/L (3.5-5.1); TOTAL PROTEIN 6.5 gm/dL (6.4-8.2)
[2018-05-28 10:21] LABS: CKMB 1.6 ng/ml (0.5-3.6); TROPONIN I 0.029 ng/ml (<0.045)
[2018-07-15] MEDS ORDERED: BUMETANIDE2 MG PO (11:57)
[2018-07-15] MEDS ORDERED: BRILINTA90 M1 PO (11:57)
[2018-07-15] MEDS ORDERED: CALCIUM ACETAT667 M2 PO (11:58)
[2018-07-15] MEDS ORDERED: AMLODIPINE BESYL5 MG PO (11:59)
[2018-07-15] MEDS ORDERED: CVS SENNA PLUS1 EACH PO (11:59)
[2018-07-15] MEDS ORDERED: ATORVASTATIN CA40 M1 PO (12:00)
[2018-07-15] MEDS ORDERED: COREG6.25 MG PO (12:00)
[2018-07-15] MEDS ORDERED: PRILOSEC20 M1 PO (12:01)
[2018-07-15] MEDS ORDERED: ADALAT10 MG PO (12:01)
[2018-07-15] MEDS ORDERED: ALBUTEROL2.5 MG/0.5 INH (12:02)
[2018-07-15] MEDS ORDERED: NEURONTIN100 MG PO (12:04)
[2018-07-15] MEDS ORDERED: RANEXA500 M1 PO (12:04)
[2018-07-15] MEDS ORDERED: OXYBUTYNIN5 MG PO (12:04)
[2018-07-15] MEDS ORDERED: ZESTRIL5 MG PO (12:05)
[2018-07-15] MEDS ORDERED: LASIX20 MG PO (12:05)
[2018-07-15] MEDS ORDERED: BREO ELLIPTA 11 EACH INH (12:06)
[2018-07-15] MEDS ORDERED: Ipratropium Brom3 ML INH (12:07)
[2018-07-17] MEDS ORDERED: ELIQUIS5 M1 PO (14:31)
[2018-07-17] MEDS ORDERED: LISINOPRIL10 M1 PO (14:31)
[2018-07-17] MEDS ORDERED: COREG12.5 M1 PO (14:31)
[2018-09-02] MEDS ORDERED: CARVEDILOL6.25 MG PO (13:51)
[2018-09-02] MEDS ORDERED: NEURONTIN100 MG PO (13:51)
[2018-09-02] MEDS ORDERED: ZYVOX600 MG PO (13:52)
[2018-10-30] MEDS ORDERED: COUMADIN2.5 M1 PO (04:22)
[2018-10-30] MEDS ORDERED: ZESTRIL20 MG PO (04:24)
[2018-11-01] MEDS ORDERED: WARFARIN SOD5 MG PO (09:07)
== END 2018-05-28 12:43 | disposition short-term general hospital (02) ==
LOC: ED 08:51
PROVIDERS: Internal Medicine
DX: I63.9 Cerebral infarction, unspecified (principal); E11.22 Type 2 diabetes mellitus with diabetic chronic kidney disease; I12.0 Hypertensive chronic kidney disease with stage 5 chronic kidney disease or end stage renal disease; N18.6 End stage renal disease; J44.9 Chronic obstructive pulmonary disease, unspecified; I48.91 Unspecified atrial fibrillation; E78.5 Hyperlipidemia, unspecified; F17.200 Nicotine dependence, unspecified, uncomplicated; Z88.0 Allergy status to penicillin; Z91.048 Other nonmedicinal substance allergy status; Z79.899 Other long term (current) drug therapy; Z79.82 Long term (current) use of aspirin; Z99.2 Dependence on renal dialysis

== ENCOUNTER 2018-09-07 16:40 | Emergency (ER) | payer BC ==
[~2018-09-07] VITALS: Ht 170.1 cm; Wt 57.3 kg
[~2018-09-07 16:40] MED LIST changes: +ADALAT10 MG PO; +ALBUTEROL2.5 MG/0.5 INH; +ATORVASTATIN CA40 M1 PO; +BREO ELLIPTA 11 EACH INH; +BRILINTA90 M1 PO; +BUMETANIDE2 MG PO; +CALCIUM ACETAT667 M2 PO; +CARVEDILOL6.25 MG PO; +COREG12.5 M1 PO; +COREG6.25 MG PO; +CVS SENNA PLUS1 EACH PO; +ELIQUIS5 M1 PO; +Ipratropium Brom3 ML INH; +LASIX20 MG PO; +NEURONTIN100 MG PO; +OXYBUTYNIN5 MG PO; +PRILOSEC20 M1 PO; +RANEXA500 M1 PO; +ZESTRIL5 MG PO; +ZYVOX600 MG PO
[2018-10-30] MEDS ORDERED: COUMADIN2.5 M1 PO (04:22)
[2018-10-30] MEDS ORDERED: ZESTRIL20 MG PO (04:24)
[2018-11-01] MEDS ORDERED: WARFARIN SOD5 MG PO (09:07)
== END 2018-09-07 21:00 ==
LOC: ED 16:40
DX: R60.0 Localized edema (principal); I48.91 Unspecified atrial fibrillation; I13.2 Hypertensive heart and chronic kidney disease with heart failure and with stage 5 chronic kidney disease, or end stage renal disease; E11.22 Type 2 diabetes mellitus with diabetic chronic kidney disease; N18.6 End stage renal disease; I50.9 Heart failure, unspecified; F17.200 Nicotine dependence, unspecified, uncomplicated; E78.5 Hyperlipidemia, unspecified; E11.65 Type 2 diabetes mellitus with hyperglycemia; G89.29 Other chronic pain; J44.9 Chronic obstructive pulmonary disease, unspecified; Z98.890 Other specified postprocedural states; Z99.2 Dependence on renal dialysis; Z86.73 Personal history of transient ischemic attack (TIA), and cerebral infarction without residual deficits; Z79.899 Other long term (current) drug therapy; Z88.0 Allergy status to penicillin; Z91.040 Latex allergy status; Z88.8 Allergy status to other drugs, medicaments and biological substances

== ENCOUNTER 2018-09-22 10:16 | Inpatient (IN) | payer BC, MEDICARE ==
[~2018-09-22] VITALS: Ht 152.4 cm; Wt 46.5 kg
[2018-09-22] VITALS (15 sets, daily range): BP systolic 121–186; BP diastolic 31–62
--- NOTE | ~2018-09-22 | EKG ---
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: : 1945 Requested By: SHERRIE SAUCEDO Order Number: [id number] Reading MD: Abram Dotson Measurements Intervals [place] Rate: 71 P: 82 TX: 159 QRS: 89 QRSD: 118 T: 188 QT: 439 QTc: 478 Interpretive Statements Sinus rhythm Probable left atrial enlargement LVH lateral ST/T changes Compared to ECG 08/31/2018 11:27:09 Atrial flutter no longer present AV block, advanced (high-grade) no longer present Intraventricular conduction delay no longer present ST (T wave) deviation no longer present Electronically Signed On 09-25-2018 4:20:13 PDT by Abram Dotson CM:EKGRPT:ELECTROCARDIOGRAM REPORT [id number] [id number] SHERRIE UMANZOR DRAFT REPORT SHERRIE SAUCEDO DO
--- NOTE | ~2018-09-22 | EKG ---
[place], [place] ELECTROCARDIOGRAM REPORT NAME: CHARLES SINGH UNIT #: [id number] ROOM: [facility] DOCTOR: DERIK DRAFT REPORT BIRTHDATE: [birth year] [facility] Test Date: 2018-09-22 Test Time: 17:03:58 Pat Name: CHARLES SINGH Department: Room: 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: : 1945 Requested By: SHERRIE SAUCEDO Order Number: [id number] Reading MD: Abram Dotson Measurements Intervals [place] Rate: 70 P: 84 NV: 165 QRS: 75 QRSD: 112 T: 219 QT: 453 QTc: 489 Interpretive Statements Sinus rhythm Probable left atrial enlargement LVH with secondary repolarization abnormality Borderline prolonged QT interval Compared to ECG 08/31/2018 11:27:09 Atrial flutter no longer present AV block, advanced (high-grade) no longer present Intraventricular conduction delay no longer present ST (T wave) deviation no longer present Electronically Signed On 09-25-2018 4:26:29 PDT by Abram Dotson CM:EKGRPT:ELECTROCARDIOGRAM REPORT 1703 0426 SHERRIE UMANZOR DRAFT REPORT SHERRIE SAUCEDO DO
--- NOTE | ~2018-09-22 | PR ---
[place], [place] PROGRESS NOTE [id number] UNIT #: [id number] ROOM: 530 DOCTOR: AGUSTIN CHIRINOS MD BIRTHDATE: [birth year] DOS: 09/24/2018 REASON FOR VISIT: The patient has coronary artery disease, valvular heart disease, atrial fibrillation and elevated troponin. The patient is alert, no acute distress. Denies any chest pain. She is feeling better. Denies any nausea, vomiting. No PND, no orthopnea, no fever and chills. REVIEW OF SYSTEMS: Review of 10 systems negative except as mentioned above. PHYSICAL EXAMINATION: VITAL SIGNS: Blood pressure 151/43, pulse 62, respiratory rate is 14, weight 49.9 kilos. GENERAL: Alert, comfort, no acute distress. HEENT: Pupils are round and equal. No jaundice. NECK: Supple, no distended neck veins, no carotid bruit. CHEST: Symmetrical, nontender. LUNGS: Few scattered rhonchi. HEART: Regular rhythm, no S3. Grade 2/6 systolic ejection murmur. ABDOMEN: Bowel sounds normal. EXTREMITIES: Showed trace edema, distal is palpable. SKIN: Warm and dry. No cyanosis, clubbing. The patient has multiple ecchymotic spots. NEUROLOGIC: Alert and no focal neurologic deficit. REVIEW OF DIAGNOSTIC DATA, LABS AND MEDICATIONS: Reviewed. IMPRESSION: 1. Borderline elevation of troponin due to demand ischemia from severe anemia. 2. Severe anemia due to upper gastrointestinal bleed, status post packed red blood cell transfusion. 3. Coronary artery disease, status post stents, recent stent was 05/2018. 4. Valvular heart disease. The patient had known aortic stenosis and also mild mitral stenosis. 5. Chronic kidney disease. RECOMMENDATIONS: 1. She denies any chest pain, shortness of breath. Heart rate is stable. 2. Apparently, the patient was scheduled for "valve surgery" on 10/03/2018 at [facility] [address]. 3. Resume her Eliquis for atrial fibrillation and the patient was taking aspirin, Plavix, and Brilinta at the [facility]. If the patient can tolerate, I would resume aspirin and Plavix since her stents were on 05/2018 or at least the patient should be on Plavix and Eliquis. 4. Continue to monitor heart rate and blood pressures, renal function, hemoglobin. 5. No family at bedside. 6. Replace her potassium. [place], [place] PROGRESS NOTE NAME: CHARLES SINGH UNIT #: [id number] ROOM: [facility] DOCTOR: AGUSTIN CHIRINOS MD BIRTHDATE: [birth year] AGUSTIN CHIRINOS MD CM:PNTRANS [id number] AGUSTIN CHIRINOS MD 09/25/18 1948 interface
--- NOTE | ~2018-09-22 | O ---
[place], [place] OPERATIVE NOTE NAME: CHARLES SINGH UNIT #: [id number] ROOM: [facility] DOCTOR: ELFEGO FONSECA MD BIRTHDATE: [birth year] DOS: 09/22/2018 GASTROENDOSCOPIC REPORT INDICATIONS: The patient has presented with active GI bleed, profound anemia, hemoglobin of 4, status post transfusion, undergoing investigation. PROCEDURE: Today's procedure part of investigation is panendoscopy plus ice-cold lavage. PREMEDICATION: Propofol. SCOPE: Olympus forward-viewing gastroscope Q10 video. REPORT: After putting the patient in the left lateral position and application of lubricant to the scope, the scope was introduced. Thereafter, under direct visualization, I advanced through the length of esophagus without difficulty. Blood products regurgitated into the esophagus and was suctioned out. Gastric pouch was entered. A large volume of degraded blood in the gastric pouch as well as fresh blood oozing superficially from proximal gastric pouch was photographed. As much as possible, suctioned out, ice cold lavage was performed. Air was suctioned out. The patient was extubated, tolerated the procedure well. Duodenal bulb within normal limit. IMPRESSION: Hemorrhagic proximal gastritis. PLAN AND DISCUSSION: Small hiatal hernia. Carafate 2 grams slurry q. 6 hours, Protonix 40 mg b.i.d. Follow up H and H transfusion. The patient has multi-systemic serious issues that has to be addressed as well. ELFEGO FONSECA MD CM:OPRECORD:OPERATIVE NOTE [phone] ELFEGO FONSECA MD 09/23/18 0045 interface
--- NOTE | ~2018-09-22 | EKG ---
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: : 1945 Requested By: SHERRIE SAUCEDO Order Number: [id number] Reading MD: Abram Dotson Measurements Intervals [place] Rate: 65 P: 85 MT: 207 QRS: 79 QRSD: 107 T: 202 QT: 464 QTc: 483 Interpretive Statements Sinus rhythm Probable left atrial enlargement LVH Lateral ST/T changes possible repolarization abnormality Baseline wander in lead(s) V4,V5,V6 Compared to ECG 08/31/2018 11:27:09 Atrial flutter no longer present AV block, advanced (high-grade) no longer present Intraventricular conduction delay no longer present ST (T wave) deviation no longer present Electronically Signed On 09-25-2018 4:24:21 PDT by Abram Dotson CM:EKGRPT:ELECTROCARDIOGRAM REPORT [id number] 0424 SHERRIE UMANZOR DRAFT REPORT SHERRIE SAUCEDO DO
--- NOTE | ~2018-09-22 | CON ---
[place], [place] REPORT OF CONSULTATION NAME: CHARLES SINGH UNIT #: [id number] ROOM: 530 DOCTOR: MARIAN BANGURA,ELFEGO BIRTHDATE: [birth year] DOS: 09/22/2018 HISTORY OF PRESENT ILLNESS: This is a 73-year-old patient who presented with profound anemia of hemoglobin of 4 and hematocrit of 14 with platelet count of 345, INR of 1.3, status post first unit transfusion, second unit in progress. Troponin elevation. No known renal failure with BUN and creatinine 53 and 5.2. Electrolytes balanced. Liver function test, abnormal. GOT of 1400+, GPT of 800+, alkaline phosphatase 86, bilirubin of 0.6. Possible ischemic event on board. Elevation of troponin. Lipase within normal. BNP of 100,000 plus. Chest x-ray, vascular congestion. Troponin continued to be elevated, is known to be elevated and expected. Lactic acid 4.1. PAST MEDICAL HISTORY: Associated with COPD, congestive heart failure, coronary artery disease, atrial fibrillation, anemia, end-stage renal disease, GERD, foot ulcers, and dialysis dependent. PAST SURGICAL HISTORY: Fistula creation, vascular surgery. SOCIAL HISTORY: Past smoker. FAMILY HISTORY: Noncontributory. ALLERGIES: ADHESIVE, PENICILLIN, AND LATEX. MEDICATIONS: List including clopidogrel and aspirin was noticed. Eliquis in addition. REVIEW OF SYSTEMS: HEENT: Denies double vision, blurred vision. RESPIRATORY: Denies shortness of breath. CARDIOVASCULAR: Denies chest pain. DIGESTIVE SYSTEM: Guaiac positive. PHYSICAL EXAMINATION: VITAL SIGNS: Stable. HEENT: Benign. NECK: Supple, no thyromegaly, no cervical lymphadenopathy. CHEST: Symmetric anatomy, equal expansion. No wheeze, no rhonchi. HEART: Normal sinus rhythm, no gallop, no murmur. ABDOMEN: Soft. No hepato-organomegaly. Bowel sounds present. No pulsatile mass. EXTREMITIES: Ulceration of the left foot, left ankle all noticed. NEUROLOGIC: Alert and slow orientation. LABORATORY DATA: Reviewed. Records reviewed. IMPRESSION: Renal failure, congestive heart failure, and profound anemia, status post transfusion. PLAN AND DISCUSSION: Other adjunctive diagnoses as outlined in paragraph of [place], [place] REPORT OF CONSULTATION NAME: CHARLES SINGH UNIT #: [id number] ROOM: [facility] DOCTOR: MARIAN BANGURA,ELFEGO BIRTHDATE: [birth year] past medical and surgical history, supportive management, endoscopic assessment to rule out active GI bleed. Supportive management. ELFEGO FONSECA MD CM:CONSTR:REPORT OF CONSULTATION 09 10/15/18 0800 interface
--- NOTE | ~2018-09-22 | PR ---
[place], [place] PROGRESS NOTE NAME: CHARLES SINGH UNIT #: [id number] ROOM: 530 DOCTOR: LIANNA ARIAS MD BIRTHDATE: [birth year] DOS: 09/28/2018 ADDENDUM This is an addendum to the progress note done by the nurse practitioner, Charito Eng. I agree with the assessment and plan made by the nurse practitioner, Charito Eng. I reviewed the labs and imaging and made the necessary changes in the note. Lianna Arias MD CM:PNTRANS [phone] LIANNA ARIAS MD 10/01/18 0439 interface
--- NOTE | ~2018-09-22 | PR ---
[place], [place] PROGRESS NOTE NAME: CHARLES SINGH UNIT #: [id number] ROOM: 530 DOCTOR: FRANCISCA OATES BIRTHDATE: [birth year] DOS: 09/28/2018 SUBJECTIVE: The patient is being followed for urinary tract infection with Proteus. She is currently on Azactam. She also has been followed for an upper GI bleed and elevated troponin during this hospitalization. She has had no fevers. She is very confused, states she is having discomfort of her buttocks, heart burn, and discomfort of the left ankle, some nausea relieved with medication. No emesis. She is incontinent of urine, she is very confused and trying to climb out of bed, stating someone is waiting for her outside, she had had no fevers. LABORATORY DATA: WBC is 10.5, platelets 303. BUN 12, creatinine 2.6, AST 107, ALT 501. PHYSICAL EXAMINATION: VITAL SIGNS: Temperature 97.6, pulse 76, respirations 20, and BP 94/70. GENERAL: A 73-year-old female, in no acute distress, nontoxic in appearance. HEENT: Normocephalic, no thrush. LUNGS: Clear to auscultation bilaterally. Respirations even and unlabored. HEART: Regular rhythm. No murmur appreciated. ABDOMEN: Soft, nondistended, nontender. EXTREMITIES: No edema. Left foot wrapped. SKIN: Warm, dry, free of rashes. Significant for ecchymosis of the right upper extremity as well as some ecchymotic areas of the lower extremities. ASSESSMENT: Urinary tract infection with Proteus. PLAN: She is to continue her Azactam, contact isolation as the Proteus is positive for ESBL. JULY ИВАН ESPINOSA [place], [place] PROGRESS NOTE NAME: CHARLES SINGH UNIT #: [id number] ROOM: 530 DOCTOR: FRANCISCA OATESJULY BIRTHDATE: [birth year] Lianna Lorenzoviya, MD CM:PNTRANS [id number] DALJIT ESPINOSA [facility] 09/28/18 1311 interface
--- NOTE | ~2018-09-22 | PR ---
[place], [place] PROGRESS NOTE NAME: CHARLES SINGH UNIT #: [id number] ROOM: [facility] DOCTOR: AUGSTIN CHIRINOS MD BIRTHDATE: [birth year] DOS: 09/23/2018 CARDIOLOGY PROGRESS NOTE REASON FOR VISIT: The patient in atrial fibrillation, coronary artery disease. HISTORY OF PRESENT ILLNESS: The patient is alert. Denies any chest pain, complaining of some abdominal discomfort, but no nausea, vomiting. No fever and chills. No cough or hemoptysis. No PND. REVIEW OF SYSTEMS: Review of 10 systems negative except as mentioned above. RHYTHM STRIPS: The patient in sinus rhythm. PHYSICAL EXAMINATION: VITAL SIGNS: Blood pressure 150/77, pulse 98, respiratory rate 16. GENERAL: Alert, comfortable, in no acute distress. HEENT: Pupils are round and equal. No jaundice. Tongue was moist and pharynx clear. NECK: Supple, no distended neck veins, no carotid bruit. CHEST: Symmetrical, nontender. LUNGS: A few scattered rhonchi. HEART: Regular rhythm, no S3, no palpable thrills. ABDOMEN: Benign. Bowel sounds normal. EXTREMITIES: Showed trace edema. Distal pulses palpable. SKIN: Warm and dry. No cyanosis, no clubbing. The patient had multiple ecchymotic spots. RECTAL: Deferred. GENITOURINARY: Deferred. NEUROLOGIC: The patient is alert with no focal neurologic deficit. LABS AND MEDICATIONS: Reviewed. IMPRESSION: 1. Borderline elevation of troponin due to demand ischemia. 2. Severe anemia due to gastrointestinal bleed. 3. History of coronary artery disease. 4. Paroxysmal atrial fibrillation. 5. End-stage renal disease. 6. Hypertension. RECOMMENDATIONS: 1. Continue current medications. 2. If not done, I will get 2D echo for LV function and valvular function. 3. Once her hemoglobin is stable and cleared from the GI consultants, we will resume her Eliquis and antiplatelet therapy. 4. No family at bedside at the time of examination. [place], [place] PROGRESS NOTE NAME: CHARLES SINGH UNIT #: [id number] ROOM: [facility] DOCTOR: AGUSTIN CHIRINOS MD BIRTHDATE: [birth year] AGUSTIN CHIRINOS MD CM:PNTRANS [phone] AGUSTIN CHIRINOS MD 09/24/18 0508 interface
--- NOTE | ~2018-09-22 | PR ---
[place], [place] PROGRESS NOTE NAME: CHARLES SINGH UNIT #: [id number] ROOM: 530 DOCTOR: AGUSTIN CHIRINOS MD BIRTHDATE: [birth year] DOS: 09/26/2018 CARDIOLOGY PROGRESS NOTE REASON FOR VISIT: Elevated troponin and CAD, atrial fibrillation. SUBJECTIVE: The patient denies any chest pain, looks tired. No fever or chills. No nausea, no PND, no orthopnea. REVIEW OF SYSTEMS: Review of the 8 systems negative except as mentioned above. PHYSICAL EXAMINATION: VITAL SIGNS: Blood pressure 100/58, pulse 65, respiratory rate 16, weight 48.6 kilos. GENERAL: Alert, comfortable, in no acute distress. HEENT: Pupils are round and equal. No jaundice. NECK: Supple, no distended neck veins, no carotid bruit. CHEST: Symmetrical, nontender. LUNGS: A few scattered rhonchi. HEART: Regular rhythm, no S3, no palpable thrills. Grade 2/6 systolic murmur. ABDOMEN: Benign, nontender. Bowel sounds normal. EXTREMITIES: Showed no edema. Distal pulses palpable. SKIN: Warm and dry. No cyanosis, no clubbing. IMPRESSION: 1. Borderline elevation of troponin due to severe demand ischemia. 2. Upper gastrointestinal bleed. 3. Coronary artery disease, status post stents in 05/2018, details unknown. 4. Paroxysmal atrial fibrillation. 5. Valvular heart disease with moderate aortic stenosis and mild mitral stenosis. 6. Anemia. 7. Borderline low blood pressure. PLAN: 1. Continue current medications. 2. When she is stable from the GI standpoint and hemoglobin stable, she will need to be on Plavix and Eliquis for her CAD and atrial fibrillation or at least aspirin plus Plavix for her recent stents. 3. No family at bedside at the time of examination. 4. The patient scheduled for "valve surgery" at [facility] on 10/03/2018; however, I do not think she is clinically stable at this time. [place], [place] PROGRESS NOTE NAME: CHARLES SINGH UNIT #: [id number] ROOM: 530 DOCTOR: AGUSTIN CHIRINOS MD BIRTHDATE: [birth year] AGUSTIN CHIRINOS MD CM:PNTRANS [id number] AGUSTIN CHIRINOS MD 09/27/18 0055 interface
--- NOTE | ~2018-09-22 | PR ---
[place], [place] PROGRESS NOTE NAME: CHARLES SINGH UNIT #: [id number] ROOM: 530 DOCTOR: CANDIS BANGURAFRANKIEJeannine BIRTHDATE: [birth year] DOS: 09/25/2018 CARDIOLOGY PROGRESS NOTE REASON FOR VISIT: Elevated troponin and coronary artery disease and atrial fibrillation. HISTORY OF PRESENT ILLNESS: The patient denies any chest and currently she is undergoing dialysis at bedside. Denies any fever or chills. No cough or hemoptysis. No PND or orthopnea. No palpitations or dizziness. REVIEW OF SYSTEMS: Review of 10 systems negative except as mentioned above. RHYTHM STRIPS: The patient was in sinus rhythm. PHYSICAL EXAMINATION: VITAL SIGNS: Blood pressure 151/62, heart rate 61, respiratory rate 17. GENERAL: Alert, comfortable, in no acute distress. HEENT: Pupils are round and equal. No jaundice. NECK: Supple, no distended neck veins, no carotid bruit. CHEST: Symmetrical, nontender. LUNGS: A few scattered rhonchi. HEART: Regular rhythm, no S3, grade 2/6 systolic murmur. No palpable thrills. ABDOMEN: Bowel sounds normal, nontender. EXTREMITIES: Showed trace edema. Distal pulse palpable. SKIN: Warm and dry. No cyanosis, no clubbing. RECTAL: Deferred. GENITOURINARY: Deferred. NEUROLOGIC: The patient is alert, no focal neurologic deficit. IMPRESSION: 1. Borderline elevation of troponin due to severe anemia from demand ischemia. 2. Severe anemia due to upper gastrointestinal bleed, status post transfusion of packed red blood cells. 3. Coronary artery disease, status post stents in 05/2018. 4. Valvular heart disease with moderate carotid stenosis and mild mitral stenosis. The patient was scheduled for "valvular heart surgery" on 10/03/2018 at [facility]. 5. Hypertension, needs better control. Increase her hydralazine and also increase her lisinopril and monitor blood pressures. RECOMMENDATIONS: Once she is stable from anemia, we need to resume her antiplatelet therapy and Eliquis. In order to get her cardiac cath report, the options include Plavix and aspirin and hold on Eliquis for now or Eliquis with Plavix and hold aspirin since her stent was in 05/2018. No family at bedside at the time of my examination. [place], [place] PROGRESS NOTE NAME: CHARELS SINGH UNIT #: [id number] ROOM: [facility] DOCTOR: AGUSTIN CHIRINOS MD BIRTHDATE: [birth year] AGUSTIN CHIRINOS MD CM:PNSIERRA 01 2 AGUSTIN CHIRINOS MD 09/26/18211 interface
--- NOTE | ~2018-09-22 | PR ---
[place], [place] PROGRESS NOTE NAME: CHARLES SINGH UNIT #: [id number] ROOM: 530 DOCTOR: MARIAN BANGURA,ELFEGO BIRTHDATE: [birth year] DOS: 09/26/2018 HISTORY OF PRESENT ILLNESS: This patient has presented with profound anemia, status post multiple transfusion. Endoscopic evaluation was found to have diffuse hemorrhagic gastritis with gastric pool of blood. The patient was aggressively address with sucralfate and Protonix double dose therapy, kept n.p.o., IV hydrated to assure effect of the medication. H and H post-transfusion stabilized at 8.8 and 27 and tomorrow morning, she is going to have another H and H done and basic metabolic is going to be reassessed again. Her BUN and creatinine 14 and 2.4 has been noticed. Electrolytes today has been balanced protein has been 6.5, AST and ALT of 490 and 1013, continues with abnormal GOT and GPT elevation and she is on dialysis and lactic acid has been initially greater than 4, which has improved to the level of 2+. BNP was 111,000. Abnormal GOT and GPT can be explained based on congestion of the liver. However, we are organizing a sonographic study of gallbladder and liver because of inclusion of cholelithiasis in differential diagnosis. Labs were reviewed, records were reviewed. Orders are placed. PAST MEDICAL HISTORY: Unchanged. PHYSICAL EXAMINATION: Physical exam has not changed, progress notes has been noticed and workup in progress. We will reassess labs. We are going to reassess also BNP tomorrow morning with comparison of improvement of clinical status. Other adjunctive diagnosis non-STEMI, myocardial infarction, acute blood loss anemia, pleural effusion, hypoperfusion, lactic acidosis, congestive liver failure, COPD, psoriatic arthritis, atrial fibrillation and as dictated in consultation past medical and surgical history. ELFEGO FONSECA MD CM:PNTRANS [phone] ELFEGO FONSECA MD 10/15/18 0755 interface
--- NOTE | ~2018-09-22 | PR ---
[place], [place] PROGRESS NOTE NAME: CHARLES SINGH UNIT #: [id number] ROOM: 530 DOCTOR: FRANCISCA OATES BIRTHDATE: [birth year] DOS: SUBJECTIVE: The patient is a 73-year-old female who is being followed for a Proteus UTI. Her urine culture on the had grown an ESBL Proteus. She is currently receiving Azactam, which is renally dosed for her renal failure. She is hemodialysis patient. She is alert, confused. Denies any pain. Denies nausea, vomiting or diarrhea. Blood cultures have been sterile. She has had no fevers. LABORATORY DATA: BUN 22, creatinine 3.49. ProBNP 67,383. Albumin 2.4. OBJECTIVE: VITAL SIGNS: Temperature 97.3, pulse 76, respirations 16, BP 122/80. GENERAL: A 73-year-old female, in no acute distress, alert, confused. HEAD, EYES, EARS, NOSE AND THROAT: Normocephalic, no thrush. NECK: Supple. LUNGS: Clear to auscultation bilaterally. Respirations even and unlabored. HEART: Regular rhythm. No murmur appreciated. Right chest Tesio is dressed. ABDOMEN: Soft, nondistended. EXTREMITIES: No edema. Has ecchymosis of all 4 extremities. SKIN: Warm, dry, free of rashes. ASSESSMENT: Urinary tract infection with Extended-spectrum beta-lactamases Proteus. PLAN: Continue the Azactam as per Dr. Stack. ADDENDUM I agree with her assessment and plan made by the nurse practitioner, Charito Espinosa. I reviewed the labs and imaging and made the necessary changes in the note. CHARITO ESPINOSA CNP [place], [place] PROGRESS NOTE NAME: CHARLES SINGH UNIT #: [id number] ROOM: 530 DOCTOR: FRANCISCA OATESJULY BIRTHDATE: [birth year] Lianna Stack MD CM:PNTRANS [id number] CHARITO ESPINOSA [facility] 10/01/18 0529 interface
--- NOTE | ~2018-09-22 | CON ---
[place], [place] REPORT OF CONSULTATION NAME: CHARLES SINGH UNIT #: [id number] ROOM: [facility] DOCTOR: AGUSTIN CHIRINOS MD BIRTHDATE: [birth year] DOS: 09/22/2018 CARDIOLOGY CONSULTATION REASON FOR CONSULTATION: Elevated troponin. HISTORY OF PRESENT ILLNESS: The patient was brought to the Emergency Room after the patient was found unresponsive at the longterm. She also had a fever of 100.7. The patient also had some unwitnessed fall last night. She was admitted to the hospital for severe anemia and Cardiology consult due to elevated troponin. She has history of coronary artery disease and also atrial fibrillation, on antiplatelet and anticoagulation. The patient is mostly unresponsive, responding to some painful stimuli at the time of examination. Hence history was obtained from the nursing staff, requesting physician also from the records. GI was consulted. The patient will be undergoing upper endoscopy and also receiving packed red blood cell transfusion due to her severe anemia with hemoglobin of 4.3. REVIEW OF SYSTEMS: Review of 10 systems are limited due to the patient's mental status. PAST MEDICAL HISTORY: Obtained from the record: 1. Coronary artery disease. 2. Atrial fibrillation. 3. History of stroke. 4. End-stage renal disease. 5. Hypertension. 6. Acid reflux. 7. Dyslipidemia. 8. Anemia. 9. Diabetes type 2. 10. Chronic pain. 11. COPD. 12. Peripheral vascular disease. PAST SURGICAL HISTORY: History of vascular surgery, history of AV fistula. SOCIAL HISTORY: Per records, the patient does not drink, does not use illicit drugs. Former smoker, quit 2017. FAMILY HISTORY: Father in 70s from old age. Mother had coronary artery disease, diabetes, of old age. Sister has renal failure. ALLERGIES: Reviewed. HOME MEDICATIONS: Reviewed. PHYSICAL EXAMINATION: VITAL SIGNS: Blood pressure 134/41, pulse of 66, respiratory rate is 16, weight 54 kilos. [place], [place] REPORT OF CONSULTATION NAME: CHARLES SINGH UNIT #: [id number] ROOM: [facility] DOCTOR: AGUSTIN CHIRINOS MD BIRTHDATE: [birth year] GENERAL: The patient was slightly lethargic and responding to any painful stimuli, but no acute distress. HEAD AND NECK: Supple, no distended neck veins, no carotid bruit. CHEST: Symmetrical. LUNGS: Few scattered rhonchi, diminished at bases. HEART: Regular rhythm, no S3. Grade 1/6 systolic murmur. ABDOMEN: Bowel sounds normal. EXTREMITIES: Showed trace edema. The patient had necrotic ulcer to the left heel. Distal pulses are fair. SKIN: Warm and dry. NEUROLOGIC: Unable to assess since the patient is mostly lethargic. GENITOURINARY: Deferred. RECTAL: Deferred. REVIEW OF THE DIAGNOSTIC TESTS: Her EKG, imaging studies and labs reviewed. Pertinent labs include cardiac troponin of 0.45. Hemoglobin 4.3, platelets 347,000. BUN 53, creatinine 5.2. Echo from 2018 showed normal LV function with EF 70% and LV hypertrophy and diastolic dysfunction. IMPRESSION: 1. Borderline elevation of troponins due to severe anemia with a type 2 possibly demand ischemia. 2. Severe anemia, rule out gastrointestinal bleed. 3. Coronary artery disease. 4. Valvular heart disease with mitral regurgitation and mitral stenosis by echo. 5. Paroxysmal atrial fibrillation. 6. End-stage renal disease, on dialysis, similar to proBNP, positive due to end-stage renal disease and volume overload. 7. Peripheral vascular disease. 8. Left heel gangrene. RECOMMENDATIONS: 1. No family at bedside. 2. The patient was on aspirin, Plavix, Brilinta and Eliquis. 3. We will hold Eliquis for sure and also hold her aspirin, Plavix, and Brilinta. 4. I am not sure why the patient is on Plavix and Brilinta. I would discontinue Brilinta. 5. Based on her hospital course, probably she will need oral anticoagulation with Plavix. 6. We will try to review her old cardiac records and currently unavailable. 7. The patient's condition is critical and there is no family at the bedside. 8. The patient can be given IV fluids if needed. 9. Left ventricular systolic function was normal last year. 10. She will need additional dialysis today due to her volume status since she will be receiving antibiotics and packed red blood cells as well as some IV fluids. [place], [place] REPORT OF CONSULTATION NAME: CHARLES SINGH UNIT #: [id number] ROOM: [facility] DOCTOR: CANDIS BANGURA,AGUSTIN BIRTHDATE: [birth year] AGUSTIN CHIRINOS MD CM:CONSTR:REPORT OF CONSULTATION 1909 09/23/18 0259 interface
[2018-09-22 10:49] LABS: MEAN CELL VOLUME 100.7 fl (81.0-99.0); MEAN CORPUSCULAR HGB 30.7 pg (27.0-31.0); MEAN CORPUSCULAR HGB CONC 30.5 g/dl (33.0-37.0); PLATELET COUNT AUTOMATED 348 10*3/uL (130-400); RED CELL DISTRI WIDTH 18.6 % (0-14.5); WHITE BLOOD COUNT 12.9 10*3/uL (4.8-10.8)
[2018-09-22 10:59] LABS: HEMOGLOBIN 4.3 g/dl (12.0-16.0)
[2018-09-22 11:00] LABS: HEMATOCRIT 14.1 % (37.0-47.0)
[2018-09-22 11:05] LABS: ACT PARTIAL THROMBO TIME 24.9 SECONDS (20.0-32.1); INTERNATIONAL NORM RATIO 1.3 (2.0-3.5)
[2018-09-22 11:06] LABS: ALBUMIN 2.5 gm/dl (3.1-4.5); CREATININE 5.21 mg/dL (0.55-1.02); TOTAL PROTEIN 6.3 gm/dL (6.4-8.2)
[2018-09-22 11:09] LABS: PLATELET SUFFICIENCY NORMAL (NORMAL); POLYCHROMASIA SLIGHT; TOTAL CELLS COUNTED 100 #CELLS
[2018-09-22 11:12] LABS: TROPONIN I 0.239 ng/ml (<0.045)
[2018-09-22 11:42] LABS: BILIRUBIN NEGATIVE (NEGATIVE); BLOOD 1+ (NEGATIVE); CLARITY SL CLOUDY (CLEAR); COLOR YELLOW (YELLOW); GLUCOSE NEGATIVE (NEGATIVE); KETONE NEGATIVE (NEGATIVE); LEUKO ESTERASE 1+ (NEGATIVE); NITRITE NEGATIVE (NEGATIVE); PH 8.5 (5.0-9.0); SPECIFIC GRAVITY 1.015 (1.005-1.030); UROBILINOGEN 0.2 E.U./dl (0.2-1.0)
[2018-09-22 12:01] LABS: BACTERIA 3+; WBC 21-30 wbc/hpf (0-5)
[2018-09-22 12:24] LABS: IRON 212 ug/dL (50-170); TOTAL IRON BINDING CAPACITY 194 ug/dl (250-450)
[2018-09-22] MEDS ORDERED: ATORVASTATIN CA80 M1 PO (13:22)
[2018-09-22] MEDS ORDERED: NEPHRO-VITE TA0.8 MG PO (13:29)
[2018-09-22 13:35] LABS: FERRITIN > 16500.0 ng/mL (10.0-291.0)
[2018-09-22] MEDS ORDERED: NEPHRONEX900 MCG/5 PO (14:13)
[2018-09-22] MEDS ORDERED: DULCOLAX10 M1 R (14:17)
[2018-09-22] MEDS ORDERED: MILK OF MA400 MG/5 M PO (14:20)
[2018-09-22] MEDS ORDERED: READY TO USE E133 ML R (14:22)
[2018-09-22] MEDS ORDERED: ZOFRAN4 MG PO (14:24)
[2018-09-23] VITALS: BP 158/53
[2018-09-23 04:00] VITALS: BP 170/59
[2018-09-23 05:13] LABS: BASO % 0.2 % (0.0-1.0); EOS % 0.3 % (1.0-4.0); LYMPH # 1.3 10*3/uL (1.3-4.4); LYMPH % 11.9 % (27.0-41.0); MEAN CORPUSCULAR HGB 31.5 pg (27.0-31.0); MEAN CORPUSCULAR HGB CONC 33.8 g/dl (33.0-37.0); MONO # 0.8 10*3/uL (0.1-1.0); MONO % 7.5 % (3.0-9.0); NEUT # 8.4 10*3/uL (2.3-7.9); NEUT % 79.2 % (47.0-73.0); NUCLEATED RED BLOOD CELL 0.3 % (0.0-0.0); PLATELET COUNT AUTOMATED 273 10*3/uL (130-400); RED BLOOD COUNT 2.51 10*6/uL (4.10-5.10); RED CELL DISTRI WIDTH 17.1 % (0-14.5); WHITE BLOOD COUNT 10.6 10*3/uL (4.8-10.8)
[2018-09-23 05:16] LABS: HEMATOCRIT 23.4 % (37.0-47.0); HEMOGLOBIN 7.9 g/dl (12.0-16.0); MEAN CELL VOLUME 93.2 fl (81.0-99.0)
[2018-09-23 05:39] LABS: ACT PARTIAL THROMBO TIME 25.7 SECONDS (20.0-32.1); INTERNATIONAL NORM RATIO 1.2 (2.0-3.5)
[2018-09-23 05:44] LABS: ALBUMIN 2.5 gm/dl (3.1-4.5); CREATININE 5.64 mg/dL (0.55-1.02); FREE T4 1.38 ng/dl (0.76-1.46); TOTAL PROTEIN 6.2 gm/dL (6.4-8.2)
[2018-09-23 05:57] LABS: THYROID STIM HORMONE (HS) 1.24 uIU/ml (0.358-4.75)
[2018-09-23 05:58] LABS: POTASSIUM 3.9 mmol/L (3.5-5.1)
[2018-09-23 06:36] LABS: VITAMIN D, 25-HYDROXY 32.5 ng/mL (30-100)
[2018-09-23 08:00] VITALS: BP 170/63
[2018-09-23 12:00] VITALS: BP 156/77
[2018-09-23 12:16] LABS: BASO % 0.2 % (0.0-1.0); EOS % 0.4 % (1.0-4.0); HEMATOCRIT 24.1 % (37.0-47.0); HEMOGLOBIN 8.1 g/dl (12.0-16.0); LYMPH # 1.2 10*3/uL (1.3-4.4); LYMPH % 10.3 % (27.0-41.0); MEAN CELL VOLUME 93.1 fl (81.0-99.0); MEAN CORPUSCULAR HGB 31.3 pg (27.0-31.0); MEAN CORPUSCULAR HGB CONC 33.6 g/dl (33.0-37.0); MEAN PLATELET VOLUME 10.4 fl (9.6-12.3); MONO # 0.7 10*3/uL (0.1-1.0); NEUT # 9.3 10*3/uL (2.3-7.9); NEUT % 82.1 % (47.0-73.0); NUCLEATED RED BLOOD CELL 0.4 % (0.0-0.0); PLATELET COUNT AUTOMATED 276 10*3/uL (130-400); RED BLOOD COUNT 2.59 10*6/uL (4.10-5.10); RED CELL DISTRI WIDTH 17.5 % (0-14.5); WHITE BLOOD COUNT 11.3 10*3/uL (4.8-10.8)
[2018-09-23 16:00] VITALS: BP 178/64; BP 193/65
[2018-09-23 20:00] VITALS: BP 165/47
[2018-09-24] VITALS: BP 160/57
[2018-09-24 04:00] VITALS: BP 168/63
[2018-09-24 06:06] LABS: HEPATITIS B SURFACE AG Negative (Negative); HEPATITIS C VIRUS ANTIBODY 0.1 s/co (0.0-0.9)
[2018-09-24 06:38] LABS: BASO % 0.2 % (0.0-1.0); EOS # 0.1 10*3/uL (0.0-0.4); EOS % 0.7 % (1.0-4.0); HEMATOCRIT 22.6 % (37.0-47.0); HEMOGLOBIN 7.4 g/dl (12.0-16.0); LYMPH # 1.2 10*3/uL (1.3-4.4); LYMPH % 11.6 % (27.0-41.0); MEAN CELL VOLUME 94.6 fl (81.0-99.0); MEAN CORPUSCULAR HGB CONC 32.7 g/dl (33.0-37.0); MEAN PLATELET VOLUME 10.9 fl (9.6-12.3); MONO # 0.8 10*3/uL (0.1-1.0); MONO % 7.7 % (3.0-9.0); NEUT # 8.3 10*3/uL (2.3-7.9); NUCLEATED RED BLOOD CELL 0.1 10*3/uL (0.0-0.0); NUCLEATED RED BLOOD CELL 0.8 % (0.0-0.0); PLATELET COUNT AUTOMATED 244 10*3/uL (130-400); RED BLOOD COUNT 2.39 10*6/uL (4.10-5.10); WHITE BLOOD COUNT 10.5 10*3/uL (4.8-10.8)
[2018-09-24 07:07] LABS: ALBUMIN 2.3 gm/dl (3.1-4.5); POTASSIUM 3.4 mmol/L (3.5-5.1)
[2018-09-24 07:22] LABS: CREATININE 2.96 mg/dL (0.55-1.02); PHOSPHOROUS 1.3 mg/dL (2.5-4.9); TOTAL PROTEIN 5.8 gm/dL (6.4-8.2)
[2018-09-24 08:00] VITALS: BP 151/43; BP 186/66
[2018-09-24 11:16] VITALS: BP 125/38
[2018-09-24 16:00] VITALS: BP 125/36
[2018-09-24 20:00] VITALS: BP 135/37
[2018-09-25] VITALS: BP 158/53
[2018-09-25 04:00] VITALS: BP 151/42
[2018-09-25 05:33] LABS: ALBUMIN 2.4 gm/dl (3.1-4.5); CREATININE 4.05 mg/dL (0.55-1.02); PHOSPHOROUS 1.9 mg/dL (2.5-4.9); POTASSIUM 3.5 mmol/L (3.5-5.1); TOTAL PROTEIN 5.9 gm/dL (6.4-8.2)
[2018-09-25 06:38] LABS: BASO % 0.1 % (0.0-1.0); EOS # 0.1 10*3/uL (0.0-0.4); EOS % 1.4 % (1.0-4.0); HEMOGLOBIN 7.7 g/dl (12.0-16.0); LYMPH % 11.4 % (27.0-41.0); MEAN CELL VOLUME 98.4 fl (81.0-99.0); MEAN CORPUSCULAR HGB 31.6 pg (27.0-31.0); MEAN CORPUSCULAR HGB CONC 32.1 g/dl (33.0-37.0); MEAN PLATELET VOLUME 10.9 fl (9.6-12.3); MONO # 0.7 10*3/uL (0.1-1.0); MONO % 8.2 % (3.0-9.0); NEUT # 6.6 10*3/uL (2.3-7.9); NEUT % 78.4 % (47.0-73.0); NUCLEATED RED BLOOD CELL 0.5 % (0.0-0.0); PLATELET COUNT AUTOMATED 242 10*3/uL (130-400); RED BLOOD COUNT 2.44 10*6/uL (4.10-5.10); WHITE BLOOD COUNT 8.4 10*3/uL (4.8-10.8)
[2018-09-25 07:42] VITALS: BP 200/62
[2018-09-25 12:00] VITALS: BP 180/66
[2018-09-25 16:00] VITALS: BP 176/62
[2018-09-25 20:00] VITALS: BP 179/59
[2018-09-26] VITALS (7 sets, daily range): BP systolic 82–160; BP diastolic 50–80
[2018-09-26 06:33] LABS: BASO % 0.1 % (0.0-1.0); EOS # 0.1 10*3/uL (0.0-0.4); EOS % 1.3 % (1.0-4.0); HEMATOCRIT 27.9 % (37.0-47.0); HEMOGLOBIN 8.8 g/dl (12.0-16.0); LYMPH # 0.9 10*3/uL (1.3-4.4); LYMPH % 9.6 % (27.0-41.0); MEAN CELL VOLUME 96.5 fl (81.0-99.0); MEAN CORPUSCULAR HGB 30.4 pg (27.0-31.0); MEAN CORPUSCULAR HGB CONC 31.5 g/dl (33.0-37.0); MEAN PLATELET VOLUME 10.7 fl (9.6-12.3); MONO # 0.7 10*3/uL (0.1-1.0); MONO % 7.8 % (3.0-9.0); NEUT # 7.4 10*3/uL (2.3-7.9); NEUT % 80.7 % (47.0-73.0); NUCLEATED RED BLOOD CELL 0.3 % (0.0-0.0); PLATELET COUNT AUTOMATED 252 10*3/uL (130-400); RED BLOOD COUNT 2.89 10*6/uL (4.10-5.10); RED CELL DISTRI WIDTH 18.4 % (0-14.5); WHITE BLOOD COUNT 9.2 10*3/uL (4.8-10.8)
[2018-09-26 07:03] LABS: ALBUMIN 2.6 gm/dl (3.1-4.5); CREATININE 2.43 mg/dL (0.55-1.02); PHOSPHOROUS 1.3 mg/dL (2.5-4.9); POTASSIUM 3.6 mmol/L (3.5-5.1); TOTAL PROTEIN 6.5 gm/dL (6.4-8.2)
[2018-09-27] VITALS: BP 154/68; BP 94/66
[2018-09-27 04:00] VITALS: BP 154/68
[2018-09-27 06:58] LABS: HEMOGLOBIN 8.8 g/dl (12.0-16.0)
[2018-09-27 07:19] LABS: ALBUMIN 2.4 gm/dl (3.1-4.5); CREATININE 3.49 mg/dL (0.55-1.02); PHOSPHOROUS 3.7 mg/dL (2.5-4.9)
[2018-09-27 08:00] VITALS: BP 122/80
[2018-09-27 14:00] VITALS: BP 110/86
[2018-09-27 16:00] VITALS: BP 131/84
[2018-09-27 20:00] VITALS: BP 109/74
[2018-09-28] VITALS (9 sets, daily range): BP systolic 94–240; BP diastolic 60–92
[2018-09-28 06:45] LABS: BASO % 0.2 % (0.0-1.0); EOS # 0.3 10*3/uL (0.0-0.4); EOS % 2.7 % (1.0-4.0); HEMATOCRIT 28.8 % (37.0-47.0); HEMOGLOBIN 9.3 g/dl (12.0-16.0); LYMPH # 1.2 10*3/uL (1.3-4.4); LYMPH % 11.8 % (27.0-41.0); MEAN CORPUSCULAR HGB CONC 32.3 g/dl (33.0-37.0); MEAN PLATELET VOLUME 9.9 fl (9.6-12.3); MONO % 9.1 % (3.0-9.0); NEUT % 75.6 % (47.0-73.0); PLATELET COUNT AUTOMATED 303 10*3/uL (130-400); RED CELL DISTRI WIDTH 18.8 % (0-14.5); WHITE BLOOD COUNT 10.5 10*3/uL (4.8-10.8)
[2018-09-28 06:56] LABS: ALBUMIN 2.7 gm/dl (3.1-4.5); CREATININE 2.6 mg/dL (0.55-1.02); TOTAL PROTEIN 6.8 gm/dL (6.4-8.2)
[2018-09-29 06:00] VITALS: BP 186/70
[2018-09-29 06:21] LABS: BASO % 0.3 % (0.0-1.0); EOS # 0.3 10*3/uL (0.0-0.4); EOS % 4.4 % (1.0-4.0); HEMATOCRIT 28.9 % (37.0-47.0); HEMOGLOBIN 9.1 g/dl (12.0-16.0); LYMPH # 1.1 10*3/uL (1.3-4.4); LYMPH % 16.8 % (27.0-41.0); MEAN CELL VOLUME 97.3 fl (81.0-99.0); MEAN CORPUSCULAR HGB 30.6 pg (27.0-31.0); MEAN CORPUSCULAR HGB CONC 31.5 g/dl (33.0-37.0); MEAN PLATELET VOLUME 10.1 fl (9.6-12.3); MONO # 0.6 10*3/uL (0.1-1.0); MONO % 9.3 % (3.0-9.0); NEUT # 4.5 10*3/uL (2.3-7.9); NEUT % 68.7 % (47.0-73.0); PLATELET COUNT AUTOMATED 288 10*3/uL (130-400); RED BLOOD COUNT 2.97 10*6/uL (4.10-5.10); RED CELL DISTRI WIDTH 18.5 % (0-14.5); WHITE BLOOD COUNT 6.5 10*3/uL (4.8-10.8)
[2018-09-29 06:53] LABS: POTASSIUM 3.8 mmol/L (3.5-5.1)
[2018-09-29 06:54] LABS: CREATININE 3.81 mg/dL (0.55-1.02)
[2018-09-29 08:00] VITALS: BP 186/60
[2018-09-29 12:00] VITALS: BP 160/60; BP 161/49
[2018-09-29 16:00] VITALS: BP 160/60
[2018-09-29 20:00] VITALS: BP 176/89
[2018-09-29 21:50] VITALS: BP 168/68
[2018-09-30] VITALS: BP 151/64
[2018-09-30 05:55] VITALS: BP 162/74
[2018-09-30 05:58] LABS: BASO % 0.4 % (0.0-1.0); EOS # 0.3 10*3/uL (0.0-0.4); EOS % 3.7 % (1.0-4.0); HEMATOCRIT 30.3 % (37.0-47.0); HEMOGLOBIN 9.5 g/dl (12.0-16.0); LYMPH # 1.3 10*3/uL (1.3-4.4); LYMPH % 15.6 % (27.0-41.0); MEAN CELL VOLUME 97.4 fl (81.0-99.0); MEAN CORPUSCULAR HGB 30.5 pg (27.0-31.0); MEAN CORPUSCULAR HGB CONC 31.4 g/dl (33.0-37.0); MONO # 0.6 10*3/uL (0.1-1.0); MONO % 7.6 % (3.0-9.0); NEUT # 6.1 10*3/uL (2.3-7.9); NEUT % 72.3 % (47.0-73.0); PLATELET COUNT AUTOMATED 335 10*3/uL (130-400); RED BLOOD COUNT 3.11 10*6/uL (4.10-5.10); RED CELL DISTRI WIDTH 18.3 % (0-14.5); WHITE BLOOD COUNT 8.5 10*3/uL (4.8-10.8)
[2018-09-30 06:20] LABS: ALBUMIN 2.5 gm/dl (3.1-4.5); CREATININE 4.78 mg/dL (0.55-1.02); POTASSIUM 4.3 mmol/L (3.5-5.1); TOTAL PROTEIN 6.2 gm/dL (6.4-8.2)
[2018-09-30 07:47] VITALS: BP 160/72
[2018-09-30 11:58] VITALS: BP 146/64
[2018-09-30] MEDS ORDERED: PLAVIX75 M1 PO (13:15)
[2018-09-30] MEDS ORDERED: AMLODIPINE BESY10 MG PO (13:15)
[2018-09-30] MEDS ORDERED: Carafate1 GM PO (13:15)
[2018-09-30] MEDS ORDERED: ELIQUIS2.5 M1 PO (13:15)
[2018-10-30] MEDS ORDERED: COUMADIN2.5 M1 PO (04:22)
[2018-10-30] MEDS ORDERED: ZESTRIL20 MG PO (04:24)
[2018-11-01] MEDS ORDERED: WARFARIN SOD5 MG PO (09:07)
== END 2018-09-30 16:25 | disposition other institution (70) | DRG 853 ==
LOC: ED 10:16 → ICCU 14:30 → EDHOLD 14:30 → ICCU 14:42 → 5E 09-25 17:41
PROVIDERS: Emergency Medicine; Internal Medicine; Internal Medicine Gastroenterology; Internal Medicine Nephrology; ADMIT Internal Medicine
PROC: 0W3P8ZZ Control Bleeding in Gastrointestinal Tract, Via Natural or Artificial Opening Endoscopic (ICD-10-PCS; 2018-09-22)
PROC: 5A1D70Z Performance of Urinary Filtration, Intermittent, Less than 6 Hours Per Day (ICD-10-PCS; 2018-09-22)
PROC: 5A1D70Z Performance of Urinary Filtration, Intermittent, Less than 6 Hours Per Day (ICD-10-PCS; 2018-09-23)
PROC: 5A1D70Z Performance of Urinary Filtration, Intermittent, Less than 6 Hours Per Day (ICD-10-PCS; principal; 2018-09-25)
PROC: 0QBS0ZZ Excision of Coccyx, Open Approach (ICD-10-PCS; principal; 2018-09-25)
PROC: 5A1D70Z Performance of Urinary Filtration, Intermittent, Less than 6 Hours Per Day (ICD-10-PCS; 2018-09-27)
PROC: 5A1D70Z Performance of Urinary Filtration, Intermittent, Less than 6 Hours Per Day (ICD-10-PCS; 2018-09-30)
DX: A41.9 Sepsis, unspecified organism (principal); G93.41 Metabolic encephalopathy; N18.6 End stage renal disease; E43 Unspecified severe protein-calorie malnutrition; I21.A1 Myocardial infarction type 2; K72.00 Acute and subacute hepatic failure without coma; K76.7 Hepatorenal syndrome; K29.01 Acute gastritis with bleeding; D62 Acute posthemorrhagic anemia; N39.0 Urinary tract infection, site not specified; I50.32 Chronic diastolic (congestive) heart failure; I13.2 Hypertensive heart and chronic kidney disease with heart failure and with stage 5 chronic kidney disease, or end stage renal disease; E87.1 Hypo-osmolality and hyponatremia; S32.592A Other specified fracture of left pubis, initial encounter for closed fracture; R44.3 Hallucinations, unspecified; E11.52 Type 2 diabetes mellitus with diabetic peripheral angiopathy with gangrene; I96 Gangrene, not elsewhere classified; D53.9 Nutritional anemia, unspecified; R65.20 Severe sepsis without septic shock; R87.2 Abnormal level of other drugs, medicaments and biological substances in specimens from female genital organs; E83.39 Other disorders of phosphorus metabolism; E83.41 Hypermagnesemia; R79.82 Elevated C-reactive protein (CRP); R79.89 Other specified abnormal findings of blood chemistry; J44.9 Chronic obstructive pulmonary disease, unspecified; E78.5 Hyperlipidemia, unspecified; K21.9 Gastro-esophageal reflux disease without esophagitis; L40.50 Arthropathic psoriasis, unspecified; L89.150 Pressure ulcer of sacral region, unstageable; L89.322 Pressure ulcer of left buttock, stage 2; E11.65 Type 2 diabetes mellitus with hyperglycemia; G89.29 Other chronic pain; D63.8 Anemia in other chronic diseases classified elsewhere; I48.0 Paroxysmal atrial fibrillation; B96.4 Proteus (mirabilis) (morganii) as the cause of diseases classified elsewhere; Z16.12 Extended spectrum beta lactamase (ESBL) resistance; K57.30 Diverticulosis of large intestine without perforation or abscess without bleeding; K80.20 Calculus of gallbladder without cholecystitis without obstruction; I08.0 Rheumatic disorders of both mitral and aortic valves; I25.10 Atherosclerotic heart disease of native coronary artery without angina pectoris; K44.9 Diaphragmatic hernia without obstruction or gangrene; K59.00 Constipation, unspecified; W18.30XA Fall on same level, unspecified, initial encounter; N20.0 Calculus of kidney; Y99.8 Other external cause status; Y92.128 Other place in nursing home as the place of occurrence of the external cause; Z99.2 Dependence on renal dialysis; Z86.73 Personal history of transient ischemic attack (TIA), and cerebral infarction without residual deficits; Y93.89 Activity, other specified; Z99.81 Dependence on supplemental oxygen; Z91.81 History of falling; I25.2 Old myocardial infarction; Z87.891 Personal history of nicotine dependence; Z82.49 Family history of ischemic heart disease and other diseases of the circulatory system; Z82.0 Family history of epilepsy and other diseases of the nervous system; Z83.3 Family history of diabetes mellitus; Z84.1 Family history of disorders of kidney and ureter; Z88.0 Allergy status to penicillin; Z91.040 Latex allergy status; Z91.09 Other allergy status, other than to drugs and biological substances; Z79.899 Other long term (current) drug therapy; Z79.82 Long term (current) use of aspirin; Z95.5 Presence of coronary angioplasty implant and graft; Z79.02 Long term (current) use of antithrombotics/antiplatelets; Z68.21 Body mass index [BMI] 21.0-21.9, adult

== ENCOUNTER 2018-10-13 16:20 | Inpatient (IN) | payer BC, MEDICARE ==
[~2018-10-13] VITALS: Ht 157.5 cm; Wt 48.2 kg
[2018-10-13] VITALS (9 sets, daily range): BP systolic 96–220; BP diastolic 63–109
--- NOTE | ~2018-10-13 | PR ---
[place], [place] PROGRESS NOTE NAME: CHARLES SINGH UNIT #: [id number] ROOM: 505 DOCTOR: MARLY ARRINGTON MD BIRTHDATE: [birth year] DOS: 10/18/2018 NEPHROLOGY FOLLOWUP NOTE SUBJECTIVE: The patient was seen and examined. She is awake and alert. Denies shortness of breath, fevers, chills, night sweats. She was complaining some leg pain. She had no issues with dialysis and fluid was not removed due to a low starting blood pressures. PHYSICAL EXAMINATION: VITAL SIGNS: Temperature 98.4, pulse 84, respiratory rate 18, blood pressure 132/90. HEENT: Shows no JVD. LUNGS: Diminished breath sounds with no wheeze. HEART: S1, S2. No rub. ABDOMEN: Soft, nontender. EXTREMITIES: Showed no edema. LABORATORY DATA: Hemoglobin 7.8, white count 7.2, platelets 384. Sodium 132, potassium 4.5, BUN 44, creatinine 5.1, glucose 100, calcium 9.1. ASSESSMENT AND PLAN: 1. End-stage renal disease, on hemodialysis Saturday, and Saturday. The patient completed dialysis earlier today. We will continue her normal schedule. Next treatment will be on Saturday. 2. Anemia of chronic disease. Transfuse as needed. Epogen as needed with dialysis. 3. Hypertension. Stable on medications. She has had labile blood pressures. 4. Coronary artery disease. Stable. 5. Questionable pneumonia. The patient remains on antibiotics. MARLY ARRINGTON MD CM:PNTRANS [phone] MARLY ARRINGTON MD 10/19/18 0106 interface
--- NOTE | ~2018-10-13 | PR ---
[place], [place] PROGRESS NOTE NAME: CHARLES SINGH UNIT #: [id number] ROOM: 505 DOCTOR: MARLY ARRINGTON MD BIRTHDATE: [birth year] DOS: 10/15/2018 NEPHROLOGY FOLLOWU NOTE SUBJECTIVE: The patient was seen and examined. She is awake and alert. Denies shortness of breath, fevers, chills or night sweats. She has no complaints. PHYSICAL EXAMINATION: VITAL SIGNS: Temperature 97.6, pulse 69, respiration rate 18, blood pressure 138/52. HEENT: Shows no JVD. LUNGS: With diminished breath sounds. No wheeze. HEART: S1, S2. No rub. ABDOMEN: Soft, nontender. EXTREMITIES: Showed no edema. SKIN: Showed no rash. LABORATORY DATA: Hemoglobin 7.2, white count 7.6 and platelets 375. Sodium is 135, potassium 3.7, carbon dioxide 34, BUN 30, creatinine 3.6, calcium 9.0, phosphorus 3.6 and magnesium 2.3. IMPRESSION AND PLAN: 1. End-stage renal disease, on hemodialysis Saturday, and Saturday. The patient will have dialysis tomorrow as per her normal schedule. Dose meds for jnb-karho-flwni disease. 2. Anemia. We will give Epogen with dialysis. Transfuse as needed. 3. Hypertension. Continue meds. 4. Coronary artery disease. Stable. Cardiology is following. 5. Questionable pneumonia. The patient is on antibiotics. MARLY ARRINGTON MD CM:PNTRANS 1421 MARLY ARRINGTON MD 10/16/188 interface
--- NOTE | ~2018-10-13 | EKG ---
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
--- NOTE | ~2018-10-13 | EKG ---
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 : 1945 Requested By: DERICK QUINONES Order Number: [id number] Reading MD: Juan M Luna MD Measurements Intervals [place] Rate: 87 P: 148 NC: 151 QRS: 145 QRSD: 105 T: -43 QT: 385 QTc: 463 Interpretive Statements Right and left arm electrode reversal, interpretation assumes no reversal Sinus rhythm Left atrial enlargement Right axis deviation Consider left ventricular hypertrophy Repol abnrm suggests ischemia, diffuse leads Compared to ECG 09/22/2018 17:03:58 Ectopic atrial rhythm now present Right-axis deviation now present Possible ischemia now present Sinus rhythm no longer present Electronically Signed On 10-15-2018 5:54:22 PDT by Juan M Luna MD CM:EKGRPT:ELECTROCARDIOGRAM REPORT [id number] DERICK JULIANANY DRAFT REPORT DERICK QUINONES DO
--- NOTE | ~2018-10-13 | PR ---
[place], [place] PROGRESS NOTE NAME: CHARLES SINGH UNIT #: [id number] ROOM: 524 DOCTOR: MARLY ARRINGTON MD BIRTHDATE: [birth year] DOS: 10/24/2018 SUBJECTIVE: The patient was seen and examined. She is awake, alert. Denies shortness of breath, fevers, chills or night sweats. She is awaiting placement. PHYSICAL EXAMINATION: VITAL SIGNS: Temperature 97.6, pulse 87, respiration rate 16, blood pressure 123/83. HEENT: Shows no JVD. LUNGS: Diminished breath sounds. No wheeze. HEART: S1, S2. No rub. ABDOMEN: Soft, nontender. EXTREMITIES: Showed no edema. LABORATORY DATA: Hemoglobin 8.7, white count 9.8 and platelets 442. Sodium is 136, potassium 4.3, CO2 of 30, BUN 21, creatinine 3.2, glucose 111 and calcium 9.1. ASSESSMENT AND PLAN: 1. End-stage renal disease, on hemodialysis Saturday, and Saturday. The patient will have dialysis tomorrow as per her normal schedule. Dose meds for end-stage renal disease. Electrolytes are acceptable. 2. Anemia of chronic disease. We will give Epogen with dialysis. Transfuse as needed. 3. Hypertension. The patient's blood pressure is stable on current medications. 4. Malnutrition. Increase protein intake. DISPOSITION: Awaiting placement. MARLY ARRINGTON MD CM:PNTRANS 1341 012 MARLY ARRINGTON MD 10/25/18 0123 interface
--- NOTE | ~2018-10-13 | CON ---
[place], [place] REPORT OF CONSULTATION NAME: CHARLES SINGH UNIT #: [id number] ROOM: 524 DOCTOR: ELAINE KEVIN DO BIRTHDATE: [birth year] DOS: 10/14/2018 RENAL CONSULTATION REASON FOR CONSULTATION: End-stage renal disease. HISTORY OF PRESENT ILLNESS: The patient is a 73-year-old female, who has a history of hypertension, COPD, CHF, atrial fibrillation, aortic stenosis, reflux disease, previous CVAs, psoriatic arthritis, per report history of confusion, unclear of duration or etiology. She does have end-stage renal disease, for which she receives dialysis every Saturday, and Saturday at [place], [place]; PCI with stents. She was transferred to this institution yesterday from her retirement reportedly due to chest pain and shortness of breath. The patient herself does not recall any of the above and seems to vacillate her answers and as such, I cannot obtain a reliable history from this patient other than her stating that she is hungry and has no complaints at present. In the ED, she was found to be saturating at 95% on 3 liters and was given a full strength aspirin and found to be markedly hypertensive for which she was given IV hydralazine. Her blood pressure was 199/74 on arrival, increasing to 206/78. A chest x-ray was performed that showed bilateral interstitial infiltrates. White count was elevated at 12.6, hemoglobin 7.5. Chemistries were unremarkable in the setting of her end-stage renal disease. Troponin I was 0.023. Subsequently, admitted for evaluation of her shortness of breath with presumed pneumonia and for evaluation of her hypertension. Her blood pressure did quickly improve after IV hydralazine, and in fact, dropping down to a value of 96/72 last evening. She has been managed with antibiotics with Levaquin for questionable underlying infection given her elevated white count. Today, I have blood cultures x 2 obtained. Troponin I has been cycled and has been negative. She has undergone dialysis today, tolerating her treatments well with 2 kilograms off. Her course of dialysis complicated by the development of AFib with RVR that has since normalized. She has remained afebrile since being admitted and blood pressures noted to have improved at 137/89 when last checked this afternoon. White count has improved to 11.0 and hemoglobin inexplicably has improved to 8.3 from 7.5 yesterday. I felt the chemistries today also again remained unremarkable in the setting of her ESRD. PAST MEDICAL HISTORY: As above. ALLERGIES: Listed to PENICILLIN AND LATEX. MEDICATIONS: Levofloxacin 500 mg IV q. 8 hours, Ranexa 500 mg b.i.d., lisinopril 10 mg daily, Plavix 75 mg daily, carvedilol 6.25 mg b.i.d., Eliquis 2.5 mg b.i.d., amlodipine 10 mg daily, DuoNeb q.i.d., sliding scale insulin, omeprazole 40 mg daily. SOCIAL HISTORY: She resides in a retirement. FAMILY HISTORY: Noncontributory. REVIEW OF SYSTEMS: Please see HPI. Full 10-point review of systems was [place], [place] REPORT OF CONSULTATION NAME: CHARLES SINGH UNIT #: [id number] ROOM: 524 DOCTOR: ELAINE KEVIN DO BIRTHDATE: [birth year] performed and obtained the above noted measures, unremarkable except as noted in HPI. PHYSICAL EXAMINATION: VITAL SIGNS: Blood pressure 137/89, pulse is 110, respirations 16, temperature is 97.5 degrees Fahrenheit. GENERAL APPEARANCE: A thin elderly female, awake, alert, oriented to person only. No apparent distress. HEAD AND NECK: Conjunctivae are pale, but moist. Oral mucosa is pale and dry. There is no carotid bruit, thyromegaly, or adenopathy. There is no JVD appreciated. LUNGS: Slightly diminished at the bases, but otherwise clear to auscultation and percussion. HEART: Irregularly irregular without an S3 or rub. A 2/6 systolic ejection murmur is appreciated. ABDOMEN: Soft, positive bowel sounds x 4, nontender without CVA tenderness. There is no rebound, guarding or rigidity noted. No abdominal or flank bruits appreciated. NEUROLOGIC: Grossly nonfocal. EXTREMITIES: No clubbing, cyanosis. There is no edema noted. Walking boot is noted to be in place on the left lower extremity. LABORATORY DATA: Labs from today: WBC 11.0; hemoglobin 8.3; hematocrit 27.1; platelets 448,000; 72 segs on differential. Sodium is 136, potassium 4.5, chloride 100, CO2 28, BUN 60, creatinine 5.53, glucose 104. Magnesium was 2.5, calcium was 9.9. ASSESSMENT AND PLAN: 1. End-stage renal disease. Currently, volume status is satisfactory. Electrolytes appear to be satisfactory. 2. Hypertension. Blood pressure under satisfactory control. 3. Anemia. As noted, hemoglobin was increased for an unclear reason. The patient presumably is on Mircera as an outpatient. Unfortunately, at this point, it is unclear to me for her shortness of breath. The patient appears comfortable now. Suspect significant component if this was volume overloaded, but she is being evaluated for possible infectious etiology. RECOMMENDATIONS: Would recheck a chest x-ray post-dialysis today, reassess her lung parenchyma. We do suggest Levaquin at 250 mg every other day, await results of pending blood culture results. She has end-stage renal disease. We would suggest switching this patient from Eliquis to Coumadin, as Eliquis is relatively contraindicated in patients with advanced CKD and in patients who have ESRD. Also, of note, her outpatient MAR shows that she takes Carafate; this should also be discontinued as this contains aluminum which is contraindicated in patients with ESRD. Thank you for allowing me to participate in the care of the patient. [place], [place] REPORT OF CONSULTATION NAME: CHARLES SINGH UNIT #: [id number] ROOM: 524 DOCTOR: ELAINE KEVIN DO BIRTHDATE: [birth year] ELAINE KEVIN DO CM:CONSTR:REPORT OF CONSULTATION 1609 10/31/18 0733 interface
--- NOTE | ~2018-10-13 | PR ---
[place], [place] PROGRESS NOTE NAME: CHARLES SINGH UNIT #: [id number] ROOM: 524 DOCTOR: ELAINE KEVIN DO BIRTHDATE: [birth year] DOS: 10/25/2018 RENAL PROGRESS NOTE SUBJECTIVE: The patient did undergo dialysis today and tolerated treatment well. She offers no complaints. Denies orthopnea, PND, dyspnea, chest pain or palpitations. States she is eating well. PHYSICAL EXAMINATION: VITAL SIGNS: Blood pressure is 132/48, pulse of 66, respirations 18, temperature 98.2 degrees Fahrenheit. GENERAL APPEARANCE: Thin elderly female, awake, alert and oriented. NECK: There is no JVD appreciated. LUNGS: Clear to auscultation and percussion. HEART: Regular without S3 or rub. ABDOMEN: Soft, positive bowel sounds x 4. EXTREMITIES: No clubbing, cyanosis or edema. LABORATORY DATA: From today, white count 9.3, hemoglobin 8.7, hematocrit 27.2, platelets are 430,000. Sodium is 132, potassium 4.7, chloride 97, CO2 of 26, BUN 33, creatinine 4.20, glucose 95, calcium 9.6. ASSESSMENT AND PLAN: 1. End-stage renal disease. Currently, volume status and electrolytes are satisfactory. 2. Hypertension. Blood pressure is satisfactorily controlled. 3. Anemia. Hemoglobin and hematocrit are stable. RECOMMENDATIONS: No change in management. She will continue with every Saturday, and Saturday dialysis. ELAINE KEVIN DO CM:PNTRANS [id number] ELAINE KEVIN DO 10/26/18 1206 interface
--- NOTE | ~2018-10-13 | PR ---
[place], [place] PROGRESS NOTE NAME: CHARLES SINGH UNIT #: [id number] ROOM: 505 DOCTOR: MARLY ARRINGTON MD BIRTHDATE: [birth year] DOS: 10/16/2018 NEPHROLOGY FOLLOWUP NOTE SUBJECTIVE: The patient was seen and examined. She is awake and alert. She was somewhat confused, thinks that she still needs dialysis. Apparently, she did have dialysis earlier today. PHYSICAL EXAMINATION: VITAL SIGNS: Temperature 98.3, pulse 80, respiratory rate 16, blood pressure 117/57. HEENT: Shows no JVD. LUNGS: Diminished breath sounds with no wheeze. HEART: S1, S2. No rub. ABDOMEN: Soft, nontender. EXTREMITIES: Showed no edema. LABORATORY DATA: Hemoglobin 7.0, white count of 8.1, platelets 350. Sodium 134, potassium 4.1, BUN 49, creatinine 4.7, glucose 113, calcium 9.5. ASSESSMENT AND PLAN: 1. End-stage renal disease, on hemodialysis, Saturday, and Saturday. The patient completed dialysis today. Continue as per her normal schedule. Next treatment will be on Saturday. 2. Anemia. Give Epogen with dialysis and transfuse as needed. 3. Hypertension. Continue medications. 4. Coronary artery disease. Stable. Cardiology is following. 5. Questionable pneumonia. The patient is on antibiotics. MARLY ARRINGTON MD CM:PNTRANS [phone] MARLY ARRINGTON MD 10/17/18 0138 interface
--- NOTE | ~2018-10-13 | PR ---
[place], [place] PROGRESS NOTE NAME: CHARLES SINGH UNIT #: [id number] ROOM: 524 DOCTOR: AGUSTIN CHIRINOS MD BIRTHDATE: [birth year] DOS: 10/21/2018 CARDIOLOGY FOLLOWUP REASON FOR VISIT: Hypotension and valvular heart disease. SUBJECTIVE: The patient was transferred to ICU due to low blood pressure; however, her blood pressures on the other arm were normal. The patient had aortic stenosis and end-stage renal disease, on dialysis. Denies any chest pain. No shortness of breath. No palpitation. No dizziness, no PND, no orthopnea. No nausea, vomiting, diarrhea. REVIEW OF SYSTEMS: Review of 8 systems negative except as mentioned above. OBJECTIVE: VITAL SIGNS: Blood pressure currently 180/64, pulse 69, respiratory rate of 16, weight 50.6 kg. RHYTHM STRIPS: The patient in sinus rhythm, rate 61. GENERAL: Alert, comfortable, in no acute distress. HEAD AND NECK: Neck supple. No distended neck veins. No carotid bruit. CHEST: Nontender. LUNGS: Diffuse scattered rhonchi. HEART: Regular rhythm, grade 2/6 systolic murmur. No palpable thrills. ABDOMEN: Nontender. Bowel sounds normal. EXTREMITIES: Showed no edema. Distal pulses palpable. SKIN: Warm and dry. No cyanosis, no clubbing. RECTAL: Deferred. GENITOURINARY: Deferred. LABORATORIES AND MEDICATIONS: Reviewed. IMPRESSION: 1. Mild hypotension. Apparently, the pressures are normal in the other arm, so try to check your blood pressures on the other arm where the pressures are normal. This is possibly due to her AV graft for dialysis. 2. Chronic heart failure with preserved ejection fraction with EF 65% by echo in September 2018. 3. Moderate to severe aortic stenosis. 4. Paroxysmal atrial fibrillation, off anticoagulation due to recurrent gastrointestinal bleed. 5. End-stage renal disease, on hemodialysis. 6. Recurrent gastrointestinal bleed with anemia. The patient is getting a transfusion today. 7. Chronic anemia. RECOMMENDATIONS: 1. Continue current medications. 2. No further cardiac testing. 3. The patient will follow up with [facility] for her TAVR. 4. Cardiology will sign off and please call if needed. [place], [place] PROGRESS NOTE NAME: CHARLES SINGH UNIT #: [id number] ROOM: 524 DOCTOR: CANDIS BANGURA,AGUSTIN BIRTHDATE: [birth year] Above recommendations were discussed with the patient. No family at bedside at the time of examination. AGUSTIN CHIRINOS MD CM:TERESSA [id number] AGUSTIN CHIRINOS MD 10/22/18 0000 interface
--- NOTE | ~2018-10-13 | EKG ---
[place], [place] ELECTROCARDIOGRAM REPORT NAME: CHARLES SINGH UNIT #: [id number] ROOM: 505 DOCTOR: DERIK DRAFT REPORT BIRTHDATE: [birth year] [facility] Test Date: 2018-10-13 Test Time: 16:26:23 Pat Name: CHARLES SINGH Department: Room: 505 Gender: F Director Machine: : 1945 Requested By: DERICK QUINONES Order Number: [id number] Reading MD: Juan M Luna MD Measurements Intervals [place] Rate: 86 P: 83 W[place]: 148 QRS: 80 QRSD: 95 T: 251 QT: 375 QTc: 449 Interpretive Statements Sinus rhythm Probable left atrial enlargement Repol abnrm, prob ischemia, anterolateral lds Compared to ECG 09/22/2018 17:03:58 Possible ischemia now present Left ventricular hypertrophy no longer present Electronically Signed On 10-15-2018 5:51:57 PDT by Juan M Luna MD CM:EKGRPT:ELECTROCARDIOGRAM REPORT [id number] DERICK JULIANANY DRAFT REPORT DERICK QUINONES DO
--- NOTE | ~2018-10-13 | EKG ---
[place], [place] ELECTROCARDIOGRAM REPORT NAME: CHARLES SINGH UNIT #: [id number] ROOM: 505 DOCTOR: DERIK DRAFT REPORT BIRTHDATE: [birth year] [facility] Test Date: 2018-10-14 Test Time: 13:10:20 Pat Name: CHARLES SINGH Department: Room: [facility] Gender: F Relocation Manager: : 1945 Requested By: SHERRIE SAUCEDO Order Number: [id number] Reading MD: Juan M Luna MD Measurements Intervals [place] Rate: 95 P: 74 AL: 133 QRS: 64 QRSD: 95 T: 221 QT: 385 QTc: 484 Interpretive Statements Sinus rhythm LVH with secondary repolarization abnormality Compared to ECG 09/22/2018 17:03:58 No significant changes Electronically Signed On 10-15-2018 5:58:50 PDT by Juan M Luna MD CM:EKGRPT:ELECTROCARDIOGRAM REPORT [id number] SHERRIE UMANZOR DRAFT REPORT SHERRIE SAUCEDO DO
--- NOTE | ~2018-10-13 | PR ---
[place], [place] PROGRESS NOTE NAME: CHARLES SINGH UNIT #: [id number] ROOM: 505 DOCTOR: MARLY ARRINGTON MD BIRTHDATE: [birth year] DOS: NEPHROLOGY FOLLOWUP NOTE SUBJECTIVE: The patient was seen and evaluated. She is lying in bed, in no acute distress. There is no report of fevers, chills or night sweats. She seems comfortable. PHYSICAL EXAMINATION: VITAL SIGNS: Temperature afebrile, pulse 72, respiratory rate 18, blood pressure 142/62. HEENT: Shows no JVD. LUNGS: Diminished breath sounds. No wheeze. HEART: S1, S2. No rub. ABDOMEN: Soft, nontender. EXTREMITIES: Had no edema. LABORATORY DATA: From 10/18/2018, potassium 4.5, creatinine 5.1, hemoglobin 7.8, white count of 7.2. ASSESSMENT AND PLAN: 1. End-stage renal disease, on hemodialysis Saturday, and Saturday. The patient will have her next dialysis on Saturday as per her normal schedule. 2. Anemia of chronic disease. Transfuse as needed. Epogen with dialysis as needed. 3. Hypertension. Continue medications. She does have labile blood pressures. 4. Questionable pneumonia. She remains on antibiotics. DISPOSITION: Awaiting placement. MARYL ARRINGTON MD CM:PNTRANS [phone] MARLY ARRINGTON MD 10/20/18 0002 interface
[~2018-10-13 16:20] MED LIST changes: +ATORVASTATIN CA80 M1 PO; +Carafate1 GM PO; +DULCOLAX10 M1 R; +ELIQUIS2.5 M1 PO; +MILK OF MA400 MG/5 M PO; +NEPHRO-VITE TA0.8 MG PO; +NEPHRONEX900 MCG/5 PO; +PLAVIX75 M1 PO; +READY TO USE E133 ML R; +ZOFRAN4 MG PO
[2018-10-13 16:50] LABS: BASO % 0.2 % (0.0-1.0); EOS # 0.5 10*3/uL (0.0-0.4); EOS % 3.7 % (1.0-4.0); HEMATOCRIT 24.1 % (37.0-47.0); HEMOGLOBIN 7.5 g/dl (12.0-16.0); LYMPH # 1.5 10*3/uL (1.3-4.4); LYMPH % 11.8 % (27.0-41.0); MEAN CELL VOLUME 99.2 fl (81.0-99.0); MEAN CORPUSCULAR HGB 30.9 pg (27.0-31.0); MEAN CORPUSCULAR HGB CONC 31.1 g/dl (33.0-37.0); MEAN PLATELET VOLUME 9.8 fl (9.6-12.3); MONO % 7.6 % (3.0-9.0); NEUT # 9.5 10*3/uL (2.3-7.9); PLATELET COUNT AUTOMATED 393 10*3/uL (130-400); RED BLOOD COUNT 2.43 10*6/uL (4.10-5.10); WHITE BLOOD COUNT 12.6 10*3/uL (4.8-10.8)
[2018-10-13 17:01] LABS: ACT PARTIAL THROMBO TIME 31.6 SECONDS (20.0-32.1); INTERNATIONAL NORM RATIO 0.9 (2.0-3.5)
[2018-10-13] MEDS ORDERED: PRINIVIL10 MG PO (17:04)
[2018-10-13] MEDS ORDERED: NITROSTAT0.4 MG SL (17:05)
[2018-10-13] MEDS ORDERED: TYLENOL325 M3 PO (17:06)
[2018-10-13 17:07] LABS: ALBUMIN 2.5 gm/dl (3.1-4.5); CREATININE 4.97 mg/dL (0.55-1.02); POTASSIUM 3.9 mmol/L (3.5-5.1); TOTAL PROTEIN 6.9 gm/dL (6.4-8.2); TROPONIN I 0.023 ng/ml (<0.045)
--- NOTE | 2018-10-13 18:56 | NUR ---
NO ONE IS AVAILABLE FOR REPORT AT THIS TIME. ATTEMPTED TO CALL X2.
--- NOTE | 2018-10-13 19:30 | NUR ---
A 73, admitted to , under the services of SHERRIE Laboy DO with a diagnosis of chest pain. Chief complaint is mid sternal chest pain and [place] that was not relieved by 2 doses of nitro and sent here to ER. Pt. was out with today per [place] from 10-3pm. Patient arrived via bed from ER. Monitor applied. Initial assessment completed. Vital signs taken and recorded. SHERRIE LABOY DO notified of admission to the unit. Orders received. See assessment for past medical history, medications and allergies. Patient and/or family oriented to unit. [facility] visitation policy reviewed. Clothing/patient valuable form completed. PT. DOES NOT KNOW MEDICATIONS PER HER "MY LAYS THEM OUT FOR ME AND I JUST TAKE THEM." WOUND CARE ORDERS TO BE RECIEVED SEE WOUND CARE DI SCREENS. SHEREE QUINTANILLA
--- NOTE | 2018-10-13 21:20 | NUR ---
CALLED ANSWERING SERVICE ABOUT PT. CONSULT. DR. KEVIN ON TONIGHT. ALSO CALLED AFTER HOURS DIALYSIS AND NO ANSWER.
--- NOTE | 2018-10-13 21:23 | NUR ---
CALLED DR. BOBO AND ANSWERING SERVICE CONSULT INFORMATION GIVEN TO DR. KEVIN
--- NOTE | 2018-10-13 22:20 | NUR ---
DR. KEVIN CALLED IN AND NOTIFIED OF CONSULT AND HE SAID PATIENT WAS THERE TODAY FOR DIALYSIS.
--- NOTE | 2018-10-13 23:40 | NUR ---
NOTIFIED DR. MUKHERJEE AND DR. PINA OF CURRENT BP OF 110/62.
[2018-10-14] VITALS: BP 111/62; BP 161/68
--- NOTE | 2018-10-14 00:07 | NUR ---
NOTIFIED DR. MUKHERJEE AFTER CALLING [facility] AND THEY STATED "PT. WAS WITH TODAY FROM 01-08 AND LAST WENT TO DIALYSIS ON THE SATURDAY THE ".
[2018-10-14] MEDS ORDERED: COREG6.25 MG PO (00:50)
--- NOTE | 2018-10-14 00:56 | NUR ---
MEDICATIONS RECONCILLED WITH [facility]. DR. SILVANA NICHOLSON.
--- NOTE | 2018-10-14 06:07 | NUR ---
FRANCISCOCHARLES Perez [id number] Please refer to the physician's history and physical for past medical history, comorbid conditions, and allergies. Diagnosis: CHEST PAIN Wolfgang Score: , WOUND DESCRIPTIONS: Wound Number: 1 Location of the wound: coccyx Type of wound: unstagable Thickness: Full Size: 0.8cm x 0.5cm x <0.1cm Tunneling: none Undermining: none Sinus Tract: none Presence of Exudate: Serous Amount: Light Color: Yellow Odor: None Periwound Skin Appearance: Normal Wound edges: approximated Pain (associated with wound): none at time of assessment How does patient state this happened? pt unable to state how this happened Wound Number: 2 Location of the wound: left heel ( left foot ) Type of wound: unstageable Thickness: Full Size: 3.5cm x 5.0cm x <0.1cm Tunneling: none Undermining: none Sinus Tract: none Presence of Exudate: none Amount: None Color: Black Odor: None Periwound Skin Appearance: Normal Wound edges: approximated Pain (associated with wound): none at time of assessment How does patient state this happened? pt unable to state how this happened Wound Number: 3 Left buttocks ( left coccyx) intact scar noted. No open areas at time of assessment. No drainage noted at time of assessment. Wound Number: 4 Location of the wound: left lower extremity Type of wound: scab Thickness: Full Size: 7.0cm x 2.1cm x <0.1cm Tunneling: none Undermining: none Sinus Tract: none Presence of Exudate: none Amount: None Color: Brown Odor: None Periwound Skin Appearance: Normal Wound edges: approximated Pain (associated with wound): none at time of assessment How does patient state this happened? pt stated she scratched herself Wound Number: 5 Location of the wound: right arm Type of wound: skin tear Thickness: Partial Size: 0.6cm x 0.9cm x 0.1cm Tunneling: none Undermining: none Sinus Tract: none Presence of Exudate: Serosanguineous Amount: Light Color: Red Odor: None Periwound Skin Appearance: Normal Wound edges: approximated Pain (associated with wound): none at time of assessment How does patient state this happened? pt stated she scratched herself Wound Number: 6 Location of the wound: left top of foot Type of wound: unstageable Thickness: Full Size: 3.0cm x 3.0cm x <0.1cm Tunneling: none Undermining: none Sinus Tract: none Presence of Exudate: none Amount: None Color: Brown Odor: None Periwound Skin Appearance: Normal Wound edges: approximated Pain (associated with wound): none at time of assessment How does patient state this happened? pt unable to state how this happened Surface the patient is resting on: Position Pro SKIN PREVENTION RECOMMENDATION: 1. Pressure redistribution support surface as appropriate 2. Elevate heels 3. Remove boots/TEDS every shift and reapply 4. Head of bed 30 degrees as tolerated 5. Assess nutrition and hydration 6. Manage moisture 7. Avoid the use of containment devices while in bed 8. Use absorptive products on surfaces limit layers of linens on bed 9. Turn and reposition every 1-2 hours in bed and every 1 hour in chair as tolerated 10. Weight shifts every 15 minutes while up in chair 11. Offloading with pillows or device to keep heels elevated off bed 12. Monitor skin at least every shift 13. Inspect under medical devices twice a day WOUND TREATMENT RECOMMENDATIONS: Imaging studies to left foot. Venous and arterial studies to BLE's due non-healing wounds. Consult podiatry for areas to left lower extermity, left top of foot, and left heel. Consult [facility] STRATTNO-[facility] for possible debridement of coccyx. Unstageable guidelines: Cleanse coccyx with nss and apply sureprep around the wound therahoney to wound bed and cover with optifoam gentle daily and prn for soiling. Cleanse left buttocks with soap and water and apply hydraguard every shift and prn for soiling. Cleanse left top of foot and left heel with betadine then apply abd pad and cover with kerlix or boni daily. Heel raiser pro boot to right heel. Keep boot intact to left foot from home. Skin tear guidelines: Cleanse right upper arm with nss and apply sureprep around the wound therahoney to wound bed and cover with optifoam gentle. Cleanse left lower extremity with soap and water and apply aquaphor daily. Wheelchair cushion when oob.
[2018-10-14 06:18] LABS: BASO % 0.3 % (0.0-1.0); EOS # 0.3 10*3/uL (0.0-0.4); HEMATOCRIT 27.1 % (37.0-47.0); HEMOGLOBIN 8.3 g/dl (12.0-16.0); LYMPH # 1.6 10*3/uL (1.3-4.4); LYMPH % 14.8 % (27.0-41.0); MEAN CELL VOLUME 98.5 fl (81.0-99.0); MEAN CORPUSCULAR HGB 30.2 pg (27.0-31.0); MEAN CORPUSCULAR HGB CONC 30.6 g/dl (33.0-37.0); MONO # 0.9 10*3/uL (0.1-1.0); MONO % 8.5 % (3.0-9.0); NEUT % 72.3 % (47.0-73.0); PLATELET COUNT AUTOMATED 448 10*3/uL (130-400); RED BLOOD COUNT 2.75 10*6/uL (4.10-5.10); RED CELL DISTRI WIDTH 17.7 % (0-14.5)
[2018-10-14 06:57] LABS: POTASSIUM 4.5 mmol/L (3.5-5.1)
[2018-10-14 07:14] LABS: CREATININE 5.53 mg/dL (0.55-1.02)
--- NOTE | 2018-10-14 07:50 | NUR ---
SPOKE WITH MONIQUE REGARDING CONFUSION TO WHICH DAYS PT HAS DIALYSIS. PT STATES SHE WENT YESTERDAY, BUT DIDN'T NEED IT AND WAS SENT HOME. NURSE FROM [facility] STATES PT WAS NOT THERE AND SHE HAS DIALYSIS T//SAT.
--- NOTE | 2018-10-14 07:56 | NUR ---
DR CASH MADE AWARE OF NEW CONSULT.
[2018-10-14 08:00] VITALS: BP 104/58
--- NOTE | 2018-10-14 08:39 | NUR ---
DR ESPINOSA'S ANSWERING SERVICE MADE AWARE OF NEW CONSULT.
--- NOTE | 2018-10-14 08:50 | NUR ---
PT OFF FLOOR AT THIS TIME FOR DIALYSIS.
--- NOTE | 2018-10-14 09:32 | NUR ---
SPEECH PATHOLOGY Nursing screen completed. This dept. will be available for consult as needed. ABBIE PORRAS MSCCC-SLUBBER HAND
--- NOTE | 2018-10-14 09:46 | NUR ---
MEDICATED WITH MORPHINE PER PRN ORDER FOR PT'S CRYING IN BILATERAL LEG PAIN IN DIALYSIS. WILL MONITOR FOR EFFECTIVENESS.
--- NOTE | 2018-10-14 09:55 | NUR ---
Dr. Blair notified of wound care recommendations.
--- NOTE | 2018-10-14 10:15 | NUR ---
PT RESTING COMFORTABLY, EARLIER MORPHINE EFFECTIVE.
--- NOTE | 2018-10-14 10:20 | NUR ---
CALL RECEIVED FROM [email or web address], STATES PT'S HR CURRENTLY 150'S APPEARS AFIB, PT WAS PREVISOULY NSR-90'S. PT DOES HAVE HISTORY AFIB. CHECKED PT'S STATUS IN DIALYSIS, DIALYSIS NURSE STATES THIS IS COMMON FOR HER TO GO INTO AFIB IN DIALYSIS. EKG ORDERED. DR BLANCHARD INFORMED. PT'S HR CURRENTLY 100-120'S PER CM.
--- NOTE | 2018-10-14 11:09 | NUR ---
DR SAUCEDO IN TO SEE PT AT THIS TIME, MADE AWARE OF PT HR AFIB 100-120'S.
--- NOTE | 2018-10-14 11:30 | NUR ---
LATE ENTRY. PT IS CURRENLY SHORT TERM CARE AT [facility] AND WILL RETURN ON DISCHARGE TO COMPLETE REHAB. REQUIRES A PRECERT TO RETURN.
--- NOTE | 2018-10-14 12:21 | NUR ---
PT RETURNED FROM DIALYSIS AT THIS TIME, SCREAMING IN PAIN FROM HER LEFT LEG. SPOKE WITH DR BLANCHARD, ORDERS RECEIVED.
--- NOTE | 2018-10-14 12:21 | NUR ---
PT RETURNED FROM DIALYSIS, 2.2 KILOS REMOVED.
--- NOTE | 2018-10-14 12:29 | NUR ---
CALL PLACED TO DR OSEGUERA'S OFFICE REGARDING PT. STATES THEY WILL HAVE HIM CALL.
--- NOTE | 2018-10-14 12:36 | NUR ---
MORPHINE 1MG X1 GIVEN NOW FOR LEFT LEG PAIN, REPOSITIONED PT, ENCOURAGED TO KEEP LEG STRAIGHT, SHE CONSTANTLY BENDS LEG AND IS APPEARING TO CONTRACTURE.
--- NOTE | 2018-10-14 12:45 | NUR ---
DR OSEGUERA MADE AWARE OF PT'S STATUS. COVNERSION TO AFIB DURING DIAYLSIS- HR 90-150'S. PT CURRENTLY AFIB 90-110'S, BP 137/89. STATES TO GIVE MISSED DOSE OF COREG AT THIS TIME, HOLD ALL OTHER BP MEDS AT THIS TIME.
--- NOTE | 2018-10-14 12:50 | NUR ---
DR OSEGUERA IN TO SEE PT AT THIS TIME.
[2018-10-14 12:55] VITALS: BP 137/89
--- NOTE | 2018-10-14 13:01 | NUR ---
PT NOW BACK IN NSR-HEART RATE 90'S. DR OSEGUERA AWARE.
--- NOTE | 2018-10-14 14:00 | NUR ---
PT IS CURRENTLY SHORT TERM CARE AT [facility] AND WILL REQUIRE A PRECERT TO RETURN. WILL CONTINUE TO FOLLOW.
--- NOTE | 2018-10-14 14:03 | NUR ---
FELICITY STILES MADE AWARE OF LAURA ARROYO.
--- NOTE | 2018-10-14 14:41 | NUR ---
PT MOANING IN PAIN IN HER LEGS, MEDICATED WITH MORPHINE FOR VENOUS/ARTERIAL STUDIES. WILL MONITOR FOR EFFECTIVENESS.
--- NOTE | 2018-10-14 14:42 | NUR ---
PT OFF FLOOR FOR VENOUS/ARTERIAL ULTRASOUNDS.
--- NOTE | 2018-10-14 14:47 | NUR ---
FELICITY HERE TO SEE PT, PT OFF FLOOR FOR TESTING. STATES SHE WILL SEE PT TOMORROW.
--- NOTE | 2018-10-14 14:52 | NUR ---
PT OFF FLOOR
--- NOTE | 2018-10-14 15:12 | NUR ---
PT OFF FLOOR SATX NOT GIVEN
--- NOTE | 2018-10-14 15:29 | NUR ---
PT RESTURNED FROM TESTING, STILL IN SEVERE PAIN IN HER LEFT LOWER LEG. UPDATED DR BLANCHARD. NEW ORDERS RECEIVED.
[2018-10-14 16:00] VITALS: BP 142/68
--- NOTE | 2018-10-14 16:17 | NUR ---
DR KEVIN HERE, HE WOULD LIKE RECOMMENDATIONS PASSED ALONG TO HOSPITALIST. HIS REC: REPEAT CXR TODAY, FOLLOWING DIALYSIS, SWITCHING LEVAQUIN TO 250MG EVERY OTHER DAY, AND THEY SHOULD CONSIDER SWITCHING ELIQUIS TO COUMADIN.
[2018-10-14 20:00] VITALS: BP 139/38
--- NOTE | 2018-10-14 20:26 | NUR ---
24 HR CHART CHECK COMPLETE.
[2018-10-15] VITALS: BP 161/68
--- NOTE | 2018-10-15 05:16 | NUR ---
Upon discharge recommend patient to follow up for wound care in outpatient setting continue current wound care orders at discharging facility.
[2018-10-15 06:08] LABS: BASO % 0.1 % (0.0-1.0); EOS # 0.4 10*3/uL (0.0-0.4); EOS % 5.8 % (1.0-4.0); HEMATOCRIT 23.3 % (37.0-47.0); HEMOGLOBIN 7.2 g/dl (12.0-16.0); LYMPH # 1.4 10*3/uL (1.3-4.4); LYMPH % 18.3 % (27.0-41.0); MEAN CELL VOLUME 98.7 fl (81.0-99.0); MEAN CORPUSCULAR HGB 30.5 pg (27.0-31.0); MEAN CORPUSCULAR HGB CONC 30.9 g/dl (33.0-37.0); MEAN PLATELET VOLUME 10.1 fl (9.6-12.3); MONO # 0.9 10*3/uL (0.1-1.0); MONO % 12.2 % (3.0-9.0); NEUT # 4.7 10*3/uL (2.3-7.9); NEUT % 62.7 % (47.0-73.0); PLATELET COUNT AUTOMATED 375 10*3/uL (130-400); RED BLOOD COUNT 2.36 10*6/uL (4.10-5.10); RED CELL DISTRI WIDTH 17.5 % (0-14.5); WHITE BLOOD COUNT 7.6 10*3/uL (4.8-10.8)
[2018-10-15 06:36] LABS: ALBUMIN 2.3 gm/dl (3.1-4.5); CREATININE 3.55 mg/dL (0.55-1.02); PHOSPHOROUS 3.6 mg/dL (2.5-4.9); POTASSIUM 3.7 mmol/L (3.5-5.1); TOTAL PROTEIN 6.5 gm/dL (6.4-8.2)
[2018-10-15 08:00] VITALS: BP 168/58
--- NOTE | 2018-10-15 08:01 | NUR ---
Patient comes from [facility] short term skilled. She will require PT/OT and a precert to return.
--- NOTE | 2018-10-15 08:33 | NUR ---
Nursing screen received and chart reviewed. Patient may need OT for d/c planning. Suni Gomez OTR/l
--- NOTE | 2018-10-15 09:50 | NUR ---
Dr. Blair notified of wound care recommendations
--- NOTE | 2018-10-15 09:50 | NUR ---
Occupational Therapy evaluation completed on 5 with full eval to follow. Precautions include fall risk,impaired cognition,limited use of RUE;dominant hand for ADLs,+2 for transfers, impaired ADl performance, high complexity level 38072 via chart review, testing and evaluation. Recommend SNF to enable max ability to function. Thank you for this referral. Suni Gomez OTR/l
--- NOTE | 2018-10-15 10:58 | NUR ---
NATIONAL SALES DIRECTOR REMOVED PER ORDER.
--- NOTE | 2018-10-15 11:13 | NUR ---
PHYSICAL THERAPY Nursing screen received. PT orders also received. Thank you. Arlin Burks,PT
--- NOTE | 2018-10-15 11:28 | NUR ---
PT IS SHORT TERM CARE AT [facility]. WILL RETURN TO GET THERAPY ON DISCHARGE. REQUIRES A PRECERT.
[2018-10-15 12:00] VITALS: BP 138/52
--- NOTE | 2018-10-15 12:01 | NUR ---
PHYSICAL THERAPY Patient evaluated on 5, full evaluation to follow. Continue with PT as per plan of care with fall, 02, Ambualtory PRAFO left LE, MaX (a) X 2, alarm and acute debility precautions. Will require return SNF. PAtient is high complexity via chart review, tests and evaluation: 30777. Thank you for this referral. Arlin Burks,PT
--- NOTE | 2018-10-15 12:29 | NUR ---
PT PLANS TO RETURN TO [facility]. WILL REQUIRE PRECERT TO RETURN
--- NOTE | 2018-10-15 13:20 | NUR ---
FELICITY STILES HERE AT THIS TIME, STATES [facility] WOUND DOES NOT REQUIRE DEBRIDEMENT.
--- NOTE | 2018-10-15 14:22 | NUR ---
Patient updated clinicals and therapy faxed to [facility], asked facility to start precert for patient to return. Waiting on auth.
--- NOTE | 2018-10-15 14:54 | NUR ---
PT RESTING IN BED, NO DISTRESS NOTED. BED ALARM ON. CALL LIGHT WITHIN REACH.
[2018-10-15 16:00] VITALS: BP 177/56
[2018-10-15 20:00] VITALS: BP 130/80; BP 78/54
--- NOTE | 2018-10-15 21:54 | NUR ---
24 HR CHART CHECK COMPLETE.
--- NOTE | 2018-10-15 23:09 | NUR ---
PRN MORPHINE ADMINISTERED FOR C/O SEVERE LEG PAIN. PATIENT ALSO REPOSITIONED FOR COMFORT. WILL REASSES FOR EFFECTIVENESS.
[2018-10-16] VITALS: BP 131/47
[2018-10-16 07:14] LABS: BASO % 0.1 % (0.0-1.0); EOS # 0.5 10*3/uL (0.0-0.4); EOS % 6.6 % (1.0-4.0); HEMATOCRIT 22.6 % (37.0-47.0); LYMPH # 1.3 10*3/uL (1.3-4.4); LYMPH % 16.6 % (27.0-41.0); MEAN PLATELET VOLUME 10.1 fl (9.6-12.3); MONO # 0.9 10*3/uL (0.1-1.0); MONO % 10.9 % (3.0-9.0); NEUT # 5.2 10*3/uL (2.3-7.9); NEUT % 64.8 % (47.0-73.0); PLATELET COUNT AUTOMATED 350 10*3/uL (130-400); RED BLOOD COUNT 2.33 10*6/uL (4.10-5.10); RED CELL DISTRI WIDTH 16.9 % (0-14.5); WHITE BLOOD COUNT 8.1 10*3/uL (4.8-10.8)
[2018-10-16 07:33] LABS: CREATININE 4.69 mg/dL (0.55-1.02); POTASSIUM 4.1 mmol/L (3.5-5.1)
--- NOTE | 2018-10-16 10:26 | NUR ---
Dr. Blair notified of wound care recommendations.
--- NOTE | 2018-10-16 11:07 | NUR ---
OT NOTE Pt was seen this A.M. 1:1 for 17 minute OT session. Upon arrival pt was supine in bed. Pt identified by name and on wristband. Pt presented to therapy with increased confusion as indicated by poor orientation to place and time and speaking of stories that had no meaning or relation to current situation. Pt transferred supine to sit EOB with modA X 2. Pt was able to maintain P+/F- static sitting balance. While sitting EOB requested for pt to nicholas B socks and pt was unable to follow commands resulting in maxA. Donned L ankle brace with maxA. Completed multiple sit to stand transfers from bed level with modA x 2. Challenged pt's static standing tolerance needed for increased I in self care tasks, pt was able to tolerate aprox 25-30 seconds at a time before sitting due to fatigue. Throughout static standing pt presented with retrograde posture resulting in maxA to correct. Pt transferred back into bed sit to supine with maxA x 2. There she was left with call light in hand, tray table in place, and bed alarm on for safety. Continue with rec D/C plan to SNF. CHANTAL James/anjelica
--- NOTE | 2018-10-16 11:12 | NUR ---
PHYSICAL THERAPY Patient gives informed consent for treatment. Patient was identified by name and ON WRISTBAND. Patient was supine in bed with head of bed elevated upon this BOX TRUCK WASHER arriving in the patient's room. Patient is very confused. Patient supine to sitting at EOB with MOD A X 2. Patient sat on EOB with CGA X 2. Patient sit to stand transfer MOD A X 2. Patient stood at bedside with CARPET INSTALLER HELPER X 2 for 30 seconds the justo time and 25 seconds the 2nd time. Patient attempted 3 rd standing tolerance but knees buckled and she had to be sat back onto bedside with MOD A X 2. Patient stood with L LE in BOOT. Patient transferred back to supine in with MAX A X 2. Patient moved up to Head of bed with MAX A X 2 WITH SHEET. Patient was left in supine with head of bed elevated, 2 liters of spO2 VIA NASAL CANULA, and bed alarm activated. Patient's bed rails were raised for patient safety. Patient was 1:1 with this BOX TRUCK WASHER for 17 minutes total. ROSALBA MAX BOX TRUCK WASHER
[2018-10-16 12:00] VITALS: BP 170/57
--- NOTE | 2018-10-16 12:19 | NUR ---
PT IS SHORT TERM AT [facility] AND WILL RETURN ON DISCHARGE.
[2018-10-16 16:00] VITALS: BP 168/80; BP 175/57
--- NOTE | 2018-10-16 19:10 | NUR ---
PT IS ASLEEP IN BED AT THIS TIME. RESPS ARE EASY AND NONLABORED. NO S/S OF DISTRESS ARE NOTED. BED ALARM IS ON, CALL LIGHT WITHIN REACH. WILL CONTINUE TO MONITOR.
[2018-10-16 20:00] VITALS: BP 171/68
--- NOTE | 2018-10-16 20:11 | NUR ---
24 HR CHART CHECK
[2018-10-17] VITALS: BP 185/62
[2018-10-17 06:37] LABS: CREATININE 3.75 mg/dL (0.55-1.02); POTASSIUM 4.2 mmol/L (3.5-5.1)
[2018-10-17 06:45] LABS: BASO % 0.2 % (0.0-1.0); EOS # 0.4 10*3/uL (0.0-0.4); EOS % 6.8 % (1.0-4.0); HEMATOCRIT 23.1 % (37.0-47.0); HEMOGLOBIN 7.2 g/dl (12.0-16.0); LYMPH # 1.3 10*3/uL (1.3-4.4); LYMPH % 19.5 % (27.0-41.0); MEAN CELL VOLUME 97.1 fl (81.0-99.0); MEAN CORPUSCULAR HGB 30.3 pg (27.0-31.0); MEAN CORPUSCULAR HGB CONC 31.2 g/dl (33.0-37.0); MEAN PLATELET VOLUME 10.1 fl (9.6-12.3); MONO # 0.8 10*3/uL (0.1-1.0); MONO % 11.8 % (3.0-9.0); NEUT # 3.9 10*3/uL (2.3-7.9); NEUT % 60.8 % (47.0-73.0); PLATELET COUNT AUTOMATED 382 10*3/uL (130-400); RED BLOOD COUNT 2.38 10*6/uL (4.10-5.10); RED CELL DISTRI WIDTH 16.5 % (0-14.5); WHITE BLOOD COUNT 6.5 10*3/uL (4.8-10.8)
--- NOTE | 2018-10-17 07:59 | NUR ---
Patient is short term at [facility], precert started on 10/15. Waiting for auth.
[2018-10-17 08:00] VITALS: BP 96/62
--- NOTE | 2018-10-17 08:17 | NUR ---
PT RESTING IN BED/. EYES CLOSED. NO DISTRESS NOTED. WILL MONITOR
--- NOTE | 2018-10-17 08:43 | NUR ---
updated clinicals and therapy notes faxed to [facility] for precert, waiting on auth.
--- NOTE | 2018-10-17 10:30 | NUR ---
PHYSICAL THERAPY Patient seen this am 1:1 for therapy visit and was supine in bed upon therapist arrival. Patient presents with continuos O2-2L via NC and voices no new c/o's at this time. Patient transfers supine to sit EOB with MAX A, tolerating static EOB sit x several minutes to collect herself. Patient then performed sit to stand MOD A, ambulating 12' x 1, use of std walker, MIN A, demonstrating impulsive behaviour and unsteady gait pattern. Patient also has L LE AFO type brace, demonstrating difficulty with L foot placement. Patient returned to supine in bed and remained with call light, tray table, telephone and bed alarm for safety. Will continue per POC as tolerated, total treatment time 14 minutes. Rao Daniels, SYSTEMS SOFTWARE DESIGNER
--- NOTE | 2018-10-17 11:00 | NUR ---
spoke with dr rodas regarding pt bp and medications due helena bowen and coreg held per dr rodas
--- NOTE | 2018-10-17 11:15 | NUR ---
OT NOTE Pt was seen this A.M. 1:1 for 15 minute OT session. Upon arrival pt was supine in bed. Pt identified by name and and had complaints of B feet being "sore". Pt transferred supine to sit EOB with maxA X 2. While sitting EOB requested for pt to nicholas B socks and pt required maxA due to confusion with sequencing and fear of falling. Therapist also donned LLE brace. Pt completed multiple sit to stand transfers from bed level with modA X 1 and use of standard walker for UE support. Challenged pt's static standing tolerance needed for increased I and enhanced endurance during self care tasks. Throughout static standing pt had multiple retrograde episodes that required modA to correct. Pt then sat EOB while completing UB grooming task with SBA after set up. Pt transferred back into bed sit to supine with maxA X 2. There she was left with call light in hand, tray table in place, and bed alarm activated for safety. Continue with rec D/C plan to SNF. CHANTAL James/Surendra
[2018-10-17 12:00] VITALS: BP 96/52
--- NOTE | 2018-10-17 12:29 | NUR ---
PT WILL RETURN TO [facility] ON DISCHARGE. WILL REQUIRE PRECERT.
[2018-10-17] MEDS ORDERED: CARVEDILOL25 MG PO (14:01)
[2018-10-17] MEDS ORDERED: VIBRAMYCIN100 MG PO (15:05)
[2018-10-17 16:00] VITALS: BP 99/66
[2018-10-17 18:00] VITALS: BP 122/47; BP 204/74
[2018-10-17 21:56] VITALS: BP 90/60
--- NOTE | 2018-10-17 23:01 | NUR ---
IV started left forearm with #18 angiocath after 1 attempt. The IV site was prepped with Chloraprep. Heparin lock attached. Sterile dressing applied. Patient tolerated precedure well. Procedure performed according to [facility] policy & procedure. Old IV in right hand D/C'd d/t occlusion and painful. CATRACHO BRUNO
[2018-10-18] VITALS: BP 92/50
--- NOTE | 2018-10-18 03:26 | NUR ---
24 HR chart check completed.
--- NOTE | 2018-10-18 07:21 | NUR ---
May convert patient to oral levofloxacin if clinically feasible. All criteria met for IV to PO conversion. Thanks, Seven Durna, PharmD, [facility]
[2018-10-18 07:45] LABS: BASO % 0.3 % (0.0-1.0); EOS # 0.4 10*3/uL (0.0-0.4); EOS % 5.8 % (1.0-4.0); HEMOGLOBIN 7.8 g/dl (12.0-16.0); LYMPH # 1.2 10*3/uL (1.3-4.4); LYMPH % 16.1 % (27.0-41.0); MEAN CELL VOLUME 96.2 fl (81.0-99.0); MEAN CORPUSCULAR HGB CONC 31.2 g/dl (33.0-37.0); MEAN PLATELET VOLUME 9.6 fl (9.6-12.3); MONO # 0.7 10*3/uL (0.1-1.0); MONO % 9.9 % (3.0-9.0); NEUT # 4.8 10*3/uL (2.3-7.9); NEUT % 67.2 % (47.0-73.0); PLATELET COUNT AUTOMATED 384 10*3/uL (130-400); RED CELL DISTRI WIDTH 16.4 % (0-14.5); WHITE BLOOD COUNT 7.2 10*3/uL (4.8-10.8)
--- NOTE | 2018-10-18 07:46 | NUR ---
AEROSOL TREATMENT NOT GIVEN PT. IN DIALYSIS
[2018-10-18 08:08] LABS: CREATININE 5.14 mg/dL (0.55-1.02); POTASSIUM 4.5 mmol/L (3.5-5.1)
[2018-10-18 10:56] VITALS: BP 142/62
[2018-10-18 12:00] VITALS: BP 133/90
[2018-10-18 16:00] VITALS: BP 194/108
[2018-10-18 20:00] VITALS: BP 168/64
--- NOTE | 2018-10-18 20:00 | NUR ---
IN TO SEE ROOM PT SITTING IN BED, NO S/S OF DISTRESS AND NO STATED COMPLAINTS. NO SOB NOTED ON ASSESSMENT. PT IS PLEASANTLY CONFUSED, BUT ALERT. BED IN LOWEST LOCKED POSITION AND CALL LIGHT WITHIN REACH AND ENCOURAGED. WILL CONTINUE TO MONITOR.
[2018-10-19] VITALS: BP 170/73
[2018-10-19 08:00] VITALS: BP 125/66; BP 188/70
[2018-10-19 10:57] VITALS: BP 142/62
[2018-10-19 12:00] VITALS: BP 135/38
[2018-10-19 16:00] VITALS: BP 168/53
[2018-10-19 20:00] VITALS: BP 179/73
--- NOTE | 2018-10-19 20:42 | NUR ---
IN TO ROM, PT LAYING IN BED. ALERT AND PLEASANTLY CONFUSED. NO S/S OF DISTRESS OR SOB NOTED AT REST WITH NASAL CANNULA INTACT. NO VERBAL COMPLAINTS AT THIS TIME AND DENIES PAIN. BED IN LOWEST FREDRICK DPOSTIION AND CALL LIGHT WITHIN REACH AND ENCOURAGED. WILL CONTINUE TO MONITOR.
[2018-10-20] VITALS: BP 177/64
[2018-10-20 08:00] VITALS: BP 188/58
--- NOTE | 2018-10-20 08:32 | NUR ---
OT NOTE Pt was seen this A.M. 1:1 24 minute OT session. Upon arrival pt was supine in bed. Pt identified by name and and had no complaints at this time. Pt transferred supine to sit EOB with modA for assist with UB. While sitting EOB pt doffed gown with [place]. When requested to complete UB bathing pt required modA for completing care to her R side. Educated pt on compensatory techniques for placing arm on tray table to reach for underarm care and techniques for wasing L side. Pt had good carry over requiring SBA after set up. Pt then donned new gown with [place]. Pt required modA for completing hair care due to limited ROM in RUE and quick onset of fatigue. With LLE brace in place pt completed sit to stand transfer from bed level with [place] and use of standard walker for UE support. Pt then completed stand pivot from EOB to recliner with [place], pt required mod verbal prompts for safety awareness due to attempting to sit before safe. Pt was left sitting upright in the recliner with call light in hand, tray table in place, and body alarm on for safety. Continue with rec D/C plan to SNF. LILIANA James
--- NOTE | 2018-10-20 08:40 | NUR ---
PHYSICAL THERAPY Patient seen this am 1:1 for therapy visit and was supine in bed upon therapist arrival. Patient voices no new c/o's and transfers supine to sit EOB with MOD A x 1. Patient tolerated static EOB sit x several minutes to collect herself prior to completing multiple sit to stand transfers, Min A, with use of std walker standing support. Patient needed v/c for proper hand placement during rise and also for reaching back for armrest prior to sitting down. Patient performed SPT to bedside chair, Min A, std walker, demonstrating POOR step sequence / upright posture. Patient requires L AFO brace for support secondary to Pronated, drop foot posture and remained in chair with call light, tray table, telephone and body alarm for safety. Patient would benefit from SNF to improve safe transfers / mobilty to reduce risk of falls. Will continue per POC as tolerated, total treatment time 14 minutes. Rao Daniels, LACE AND TEXTILES RESTORER
--- NOTE | 2018-10-20 09:02 | NUR ---
Updated clinicals and therapy notes faxed to [facility] for precert. waiting on auth.
--- NOTE | 2018-10-20 12:39 | NUR ---
OT NOTE Pt was seen this P.M. for second OT session consisting of 13 minute OT session. Upon arrival pt was supine in bed. Pt identified by name and and had no complaints at this time. Pt transferred supine to sit EOB with modA for assist with UB and LB. While sitting EOB PROM completed to RUE over all planes of motion for 1 X 10 to increase and restore maximum functional use during daily and self care tasks. Sit to stand completed from bed level with [place] and use of standard walker for UE support. Stand pivot completed from EOB to recliner with [place] and use of standard walker. Pt had one LOB backwards that required modA to correct. Pt was left sitting upright in the recliner with call light in hand. tray table in place, and body alarm on for safety. Continue with rec D/C plan to SNF. CHANTAL James/Surendra
--- NOTE | 2018-10-20 14:13 | NUR ---
STILL WAITING ON PRECERT FOR PT TO GO TO [facility].
[2018-10-20 16:00] VITALS: BP 176/64
[2018-10-20 20:00] VITALS: BP 84/58
--- NOTE | 2018-10-20 21:09 | NUR ---
NOTFIIED DR. MUKHERJEE OF PATIENTS BLOOD PRESSURE OF 84/58. PATIENT ASYMPTOMATIC. AWAKE, DENIES ANY COMPLAINTS AT THIS TIME. WILL RECHECK PATIENT BLOOD PRESSURE IN 1 HOUR.
--- NOTE | 2018-10-20 22:17 | NUR ---
PATIENT BLOOD PRESSURE STILL 80S/50S. ASYMPTOMATIC. NOTIFIED DR. MUKHERJEE. SEE NEW ORDERS.
[2018-10-21] VITALS (8 sets, daily range): BP systolic 70–198; BP diastolic 48–79
--- NOTE | 2018-10-21 00:16 | NUR ---
PATIENT PRESSURE 72/[address] MUKHERJEE. SEE NEW ORDERS.
--- NOTE | 2018-10-21 01:05 | NUR ---
NOTIFIED DR. OSUNA OF PATIENTS LOW BLOOD PRESSURES THIS EVENING. ORDERED ANOTHER 500CC BOLUS OF FLUID. STATED TO HAVE THE HOSPITALIST MANAGE PATIENTS BLOOD PRESSURE. STATES HE DOES NOT BELIEVE IT IS RENAL RELATED. DR. MUKHERJEE ON FLOOR. DR. MUKHERJEE MADE AWARE. WILL CONTINUE TO [facility].
--- NOTE | 2018-10-21 02:59 | NUR ---
500CC BOLUS COMPLETE. BLOOD PRESSURE STILL 70S/40S. NOTIFIED DR. MUKHERJEE. NO NEW ORDERS RECEVIED. WILL CONTINUE TO MONITOR
--- NOTE | 2018-10-21 03:47 | NUR ---
CALLED DR. DE GUZMAN ANSWERING SERVICE WAITING ON A CALL BACK. WILL CONTINUE TO MONITOR.
--- NOTE | 2018-10-21 04:36 | NUR ---
CALLED DR. DE GUZMAN ANSWERING SERVICE AGAIN. WAITING ON A CALL BACK.
--- NOTE | 2018-10-21 05:26 | NUR ---
Unable to assess patient at this time since patient is being transported to the unit for unstable blood pressure.
--- NOTE | 2018-10-21 05:46 | NUR ---
PT. RECEIVED FROM , REPORT FROM JACY SPAULDING. PT. ALERT AND ORIENTED AT PRESENT. TEMP 97.0-67-18, PULSE OX 97% ON 2L NC. B/P 143/92. DR. ESPINOSA CALLED IN, UPDATED TO PATIENT STATUS, INSTRUCTED TO WATCH PATIENT FOR A WHILE. CONSTANTIN WALKER RN
--- NOTE | 2018-10-21 06:03 | NUR ---
FRNACISCOCHARLES [id number] Please refer to the physician's history and physical for past medical history, comorbid conditions, and allergies. Diagnosis: CHEST PAIN Wolfgang Score: 17,AT RISK WOUND DESCRIPTIONS: ( follow up visit ) Wound Number: 1 Location of the wound: coccyx Type of wound: unstagable ( healing ) Thickness: Partial Size: 0.3cm x 0.2cm x <0.1cm Tunneling: none Undermining: none Sinus Tract: none Presence of Exudate: Serous Amount: Light Color: Red Odor: None Periwound Skin Appearance: Normal Wound edges: approximated Pain (associated with wound): none at time of assessment How does patient state this happened? pt unable to state how this happened Wound Number: 2 Location of the wound: left heel ( left foot ) Type of wound: unstageable Thickness: Full Size: 3.5cm x 5.0cm x <0.1cm Tunneling: none Undermining: none Sinus Tract: none Presence of Exudate: none Amount: None Color: Black Odor: None Periwound Skin Appearance: Normal Wound edges: approximated Pain (associated with wound): none at time of assessment How does patient state this happened? pt unable to state how this happened Wound Number: 3 Left buttocks ( left coccyx) intact scar noted. No open areas at time of assessment. No drainage noted at time of assessment. Wound Number: 4 Location of the wound: left lower extremity Type of wound: scab Thickness: Full Size: 5.5cm x 1.5cm x <0.1cm Tunneling: none Undermining: none Sinus Tract: none Presence of Exudate: none Amount: None Color: Brown Odor: None Periwound Skin Appearance: Normal Wound edges: approximated Pain (associated with wound): none at time of assessment How does patient state this happened? pt stated she scratched herself Wound Number: 5 Location of the wound: right arm Type of wound: skin tear Thickness: Partial Size: 0.5cm x 0.6cm x 0.1cm Tunneling: none Undermining: none Sinus Tract: none Presence of Exudate: Serosanguineous Amount: Light Color: Red Odor: None Periwound Skin Appearance: Normal Wound edges: approximated Pain (associated with wound): none at time of assessment How does patient state this happened? pt stated she scratched herself Wound Number: 6 Location of the wound: left top of foot (medial) Type of wound: unstageable Thickness: Full Size: 1.2cm x 0.5cm x <0.1cm Tunneling: none Undermining: none Sinus Tract: none Presence of Exudate: none Amount: None Color: Brown Odor: None Periwound Skin Appearance: Normal Wound edges: approximated Pain (associated with wound): none at time of assessment How does patient state this happened? pt unable to state how this happened Wound Number: 7 Location of the wound: left top of foot ( lateral ) Type of wound: unstageable Thickness: Full Size: 1.1cm x 0.6cm x <0.1cm Tunneling: none Undermining: none Sinus Tract: none Presence of Exudate: none Amount: None Color: Brown Odor: None Periwound Skin Appearance: Normal Wound edges: approximated Pain (associated with wound): none at time of assessment How does patient state this happened? pt unable to state how this happened Surface the patient is resting on: Isoflex SKIN PREVENTION RECOMMENDATION: 1. Pressure redistribution support surface as appropriate 2. Elevate heels 3. Remove boots/TEDS every shift and reapply 4. Head of bed 30 degrees as tolerated 5. Assess nutrition and hydration 6. Manage moisture 7. Avoid the use of containment devices while in bed 8. Use absorptive products on surfaces limit layers of linens on bed 9. Turn and reposition every 1-2 hours in bed and every 1 hour in chair as tolerated 10. Weight shifts every 15 minutes while up in chair 11. Offloading with pillows or device to keep heels elevated off bed 12. Monitor skin at least every shift 13. Inspect under medical devices twice a day WOUND TREATMENT RECOMMENDATIONS: Imaging studies to left foot due to non- healing wounds. Recommendation from arterial study states: Vascular surgery consultation, consider bilateral lower extremity arterial CT-angiogram. Continue unstageable guidelines to coccyx Continue dressing change to left buttocks with soap and water and apply hydraguard every shift and prn for soiling. Continue dressing change to left foot apply betadine cover with abd and kerlix change every other day. Continue heel raiser pro boot to right heel. Contine wheelchair cushion when oob. Keep boot intact to left foot from home. Continue skin tear guidelines to right upper arm.
[2018-10-21 06:10] LABS: BASO % 0.2 % (0.0-1.0); EOS # 0.4 10*3/uL (0.0-0.4); EOS % 4.5 % (1.0-4.0); HEMATOCRIT 22.2 % (37.0-47.0); LYMPH # 1.4 10*3/uL (1.3-4.4); LYMPH % 17.4 % (27.0-41.0); MEAN CELL VOLUME 95.7 fl (81.0-99.0); MEAN CORPUSCULAR HGB 30.2 pg (27.0-31.0); MEAN CORPUSCULAR HGB CONC 31.5 g/dl (33.0-37.0); MEAN PLATELET VOLUME 9.8 fl (9.6-12.3); MONO # 0.9 10*3/uL (0.1-1.0); MONO % 10.8 % (3.0-9.0); NEUT # 5.4 10*3/uL (2.3-7.9); NEUT % 66.2 % (47.0-73.0); PLATELET COUNT AUTOMATED 395 10*3/uL (130-400); RED BLOOD COUNT 2.32 10*6/uL (4.10-5.10); RED CELL DISTRI WIDTH 15.9 % (0-14.5); WHITE BLOOD COUNT 8.1 10*3/uL (4.8-10.8)
--- NOTE | 2018-10-21 06:30 | NUR ---
PT'S SBP IN LEFT ARM 80-90'S (85/51) AND 160-190'S IN RIGHT ARM (190/66). DIALYSIS CONFIRMED FIND OF DIFFERENCE IN BILAT ARMS KNOWN BY THEM. DR. MUKHERJEE NOTIFIED OF CURRENT UPDATE. CONSTANTIN WALKER RN
[2018-10-21 06:38] LABS: ALBUMIN 2.2 gm/dl (3.1-4.5); CREATININE 5.27 mg/dL (0.55-1.02); PHOSPHOROUS 5.3 mg/dL (2.5-4.9); POTASSIUM 4.3 mmol/L (3.5-5.1); TOTAL PROTEIN 6.3 gm/dL (6.4-8.2)
--- NOTE | 2018-10-21 08:34 | NUR ---
OCCUPATIONAL THERAPY CO-SIGN I approve of the Occupational Therapy notes written above. PETR WATERMAN OTR/Surendra
--- NOTE | 2018-10-21 08:34 | NUR ---
Patient transferred to ICCU d/t decline in medical status. When patient is medically appropriate, a new Occupational Therapy referral will be need to be ordered as needed. Thank you. Suni Gomez OTR/l
--- NOTE | 2018-10-21 08:34 | NUR ---
PHYSICAL THERAPY Patient transferred from [facility]- to ICU. Please order new Physical Therapy order when medically stable. Thank you. Marlin Joseph,PT,DPT.
--- NOTE | 2018-10-21 10:13 | NUR ---
Dr. Kauffman notified of wound care recommendations.
--- NOTE | 2018-10-21 13:06 | NUR ---
PT WILL RETURN TO [facility] WHEN AUTH RETURNS AND PT IS MEDICALLY STABLE.
--- NOTE | 2018-10-21 18:00 | NUR ---
PATIENT BROUGHT TO FLOOR BY PAULETTE FROM [facility]. PATIENT VOICED NO COMPLAINTS.
--- NOTE | 2018-10-21 20:26 | NUR ---
PATIENT'S UPDATED ON STATUS VIA PHONE CALL. HAD PASSCODE.
--- NOTE | 2018-10-21 23:31 | NUR ---
INDERJIT TO HOLD PO COREG SCHEDULED FOR 2200 DUE TO LOW BP PER .
--- NOTE | 2018-10-21 23:35 | NUR ---
PO TYLENOL ADMINISTERED AT THIS TIME FOR C/O PAIN RATED 8/10 IN BLL. WILL MONITOR EFFECTIVENESS. CALL LIGHT LEFT IN REACH.
[2018-10-22] VITALS: BP 190/66; BP 78/58
--- NOTE | 2018-10-22 00:02 | NUR ---
NOTIFIED OF PATIENT'S BP 190/66 IN RIGHT ARM & 78/58 IN LEFT ARM. BOTH MANUAL BPs. INSTRUCTED TO GIVE 2200 COREG IF HR > 70. HR CURRENTLY 73. PO COREG TO BE GIVEN.
--- NOTE | 2018-10-22 00:11 | NUR ---
EARLIER MEDICATIONS EFFECTIVE PER PT. PT DENIES ANY PAIN AT THIS TIME, BUT IS CONFUSED. PT ASKING WHERE "HER GIRLS" ARE AT. RN EXPLAINED TO PT SHE IS IN THE HOSPITAL. PT STATES "[facility], ANDRÉS IS WAITING ON ME TO MAKE HER EGGS." RN EXPLAINED TO PATIENT THAT IT IS A LITTLE AFTER MIDNIGHT AND BREAKFAST WILL NOT BE SERVED UNTIL 0700. PATIENT REPLIES, "OH OKAY, I JUST MOVED IN." PT DENIES ANY NEEDS, AT THIS TIME. NO S/S OF DISTESS NOTED. WILL MONITOR. CALL LIGHT LEFT IN REACH. BED ALARM INTACT.
--- NOTE | 2018-10-22 03:14 | NUR ---
PATIENT BECAME NAUSEATED AFTER BATH. NO EMESIS NOTED. IV ZOFRAN ADMINISTERED AT THIS TIME. WILL MONITOR EFFECTIVENESS. CALL LIGHT LEFT IN REACH.
--- NOTE | 2018-10-22 06:04 | NUR ---
DRESSING TO L FOOT APPLIED PER ORDER. PT ALSO AGREED TO LET BOOT BE REAPPLIED AT THIS TIME. PT PULLED UP IN BED AND REPOSITIONED FOR COMFORT. WILL MONITOR. CALL LIGHT IN REACH. BED ALARM INTACT.
[2018-10-22 07:00] LABS: BASO % 0.1 % (0.0-1.0); EOS # 0.3 10*3/uL (0.0-0.4); EOS % 4.4 % (1.0-4.0); HEMATOCRIT 27.3 % (37.0-47.0); HEMOGLOBIN 8.7 g/dl (12.0-16.0); LYMPH # 1.4 10*3/uL (1.3-4.4); LYMPH % 20.3 % (27.0-41.0); MEAN CORPUSCULAR HGB CONC 31.9 g/dl (33.0-37.0); MEAN PLATELET VOLUME 9.7 fl (9.6-12.3); MONO # 0.9 10*3/uL (0.1-1.0); MONO % 12.9 % (3.0-9.0); NEUT # 4.4 10*3/uL (2.3-7.9); NEUT % 61.9 % (47.0-73.0); PLATELET COUNT AUTOMATED 389 10*3/uL (130-400); RED CELL DISTRI WIDTH 17.9 % (0-14.5)
[2018-10-22 07:15] LABS: POTASSIUM 4.3 mmol/L (3.5-5.1)
[2018-10-22 07:28] LABS: ALBUMIN 2.3 gm/dl (3.1-4.5); CREATININE 3.55 mg/dL (0.55-1.02); PHOSPHOROUS 4.6 mg/dL (2.5-4.9)
[2018-10-22 08:00] VITALS: BP 200/68
--- NOTE | 2018-10-22 09:33 | NUR ---
Occupational Therapy evaluation completed on 5 with full eval to follow. Precautions include fall risk,bed alarm, personal alarm,+2 max assist for transfers,impaired cognition,high complexity level 29228 via chart review, testing and evaluation. Recommend OT per pOC and SNf to enable safe return with as able. Thank you. Suni Gomez OTR/l
--- NOTE | 2018-10-22 09:50 | NUR ---
PHYSICAL THERAPY Physical therapy evaluation completed on 5, see PT evaluation for full details. Moderate complexity evaluation: 64267. Continue PT per POC with falls risk, ambulatory with left PRAFO, MaxA x2, alarm and debility precations. Recommend SNF at discharge. Thank you. Marlin Joseph,PT,DPT.
[2018-10-22 10:50] VITALS: BP 162/66
--- NOTE | 2018-10-22 12:07 | NUR ---
[facility] contacted insurance company again regarding precert. Insurance is requesting additional clinicals. Faxed additional clinicals, continuing to wait on auth.
--- NOTE | 2018-10-22 12:11 | NUR ---
STILL WAITING ON PRECERT TO RETURN TO [facility]. WILL CONTINUE TO FOLLOW.
[2018-10-22 16:00] VITALS: BP 159/61
[2018-10-22 20:00] VITALS: BP 93/67
[2018-10-23] VITALS: BP 117/68
--- NOTE | 2018-10-23 | NUR ---
BLOOD PRESSURE TAKEN ON RIGHT LOWER EXTREMITY.
--- NOTE | 2018-10-23 04:41 | NUR ---
24 HR chart check completed.
[2018-10-23 06:33] LABS: BASO % 0.2 % (0.0-1.0); EOS # 0.4 10*3/uL (0.0-0.4); EOS % 4.7 % (1.0-4.0); HEMATOCRIT 26.1 % (37.0-47.0); HEMOGLOBIN 8.3 g/dl (12.0-16.0); LYMPH # 1.1 10*3/uL (1.3-4.4); MEAN CELL VOLUME 92.2 fl (81.0-99.0); MEAN CORPUSCULAR HGB 29.3 pg (27.0-31.0); MEAN CORPUSCULAR HGB CONC 31.8 g/dl (33.0-37.0); MEAN PLATELET VOLUME 9.6 fl (9.6-12.3); MONO # 0.8 10*3/uL (0.1-1.0); MONO % 9.3 % (3.0-9.0); NEUT % 72.3 % (47.0-73.0); PLATELET COUNT AUTOMATED 398 10*3/uL (130-400); RED BLOOD COUNT 2.83 10*6/uL (4.10-5.10); RED CELL DISTRI WIDTH 17.3 % (0-14.5); WHITE BLOOD COUNT 8.3 10*3/uL (4.8-10.8)
--- NOTE | 2018-10-23 06:34 | NUR ---
PRN TYLENOL GIVEN FOR PT COMPLAINTS OF PAIN OF THE RIGHT SHOULDER RATING IT 4/10. STATED SHE SLEPT ON IT WRONG. PATIENT CURRENTLY IN DIALYSIS. WILL MONITOR
[2018-10-23 06:58] LABS: CREATININE 3.55 mg/dL (0.55-1.02); POTASSIUM 4.3 mmol/L (3.5-5.1)
[2018-10-23 08:00] VITALS: BP 108/80
--- NOTE | 2018-10-23 08:12 | NUR ---
OT NOTE Attempted to see pt this A.M. for OT session and upon arrival pt was out of the room for dialysis. Will check back at a later time/date and continue with POC as able. CHANTAL James/Surendra
--- NOTE | 2018-10-23 08:45 | NUR ---
PHYSICAL THERAPY Patient was out of her room for dialysis this morning and not available for treatment at this time. Will continue this pm as able per POC. Rao Daniels, DIRECTOR INFORMATION
--- NOTE | 2018-10-23 10:22 | NUR ---
JOHNATHON spoke with Senia from [facility]- Still awaiting precert approval. Asked if the precert would be good until Saturday if needed, she stated she is not sure would have to review the length of the percert once it is received. -JOHNATHON Correia
--- NOTE | 2018-10-23 10:55 | NUR ---
PHYSICAL THERAPY Patient seen this am 1;1 for therapy visit and was sitting up in bedside chair upon therapist arrival. Patient presented with continuous IV treatment and reports no new c/o's at this time. Patient also presented with L AFO brace and performed several warm up ex including seated, marvhing / LAQ x 10 reps each. Patient completed several sit to stand transfers, CODE ENFORCEMENT SUPERVISOR/MOD x 2, tolerating < 30 seconds static stand each trial. Patient demonstrated POOR upright posture and fatigue very quickly. Patient remained in bedside chair with call light, tray table, telephone and body alarm for safety. Will continue per POC as tolerated, total treatment time 14 minutes. Rao Daniels, COREMAKER HELPER
--- NOTE | 2018-10-23 11:10 | NUR ---
OT NOTE Pt was seen this A.M. 1:1 for 15 minute OT session. Upon arrival pt was sitting upright in the recliner. Pt identified by name and and had no complaints at this time. Pt presented to therapy with increased confusion as indicated by talking of topics of no subject and being unable to follow commands. Pt completed multiple sit to stand transfers from chair level with modA X 2 PROPELLANT ASSEMBLER. Pt required constant verbal prompts for correcting her posture and following commands. Challenged pt's static standing tolerance needed for increased I in self care tasks and functional transfers, pt was able to tolerate aprox 30 seconds at a time before sitting due to complaints of B ankle pain. Pt was left sitting upright in the recliner with call light in hand, tray table in place, and body alarm on for safety. Continue with rec D/C plan to SNF. LILIANA James
--- NOTE | 2018-10-23 11:37 | NUR ---
STILL WAITING ON PRECERT FOR PT TO RETURN TO [facility].
[2018-10-23 12:00] VITALS: BP 101/50
--- NOTE | 2018-10-23 12:24 | NUR ---
DRESSING CHANGES COMPLETE TO RIGHT UPPER EXTREMITY AND LEFT HEEL/FOOT WHILE PT UP IN CHAIR. DRESSING CHANGE TO COCCYX WILL BE CHANGED AFTER PT IS IN BED.
--- NOTE | 2018-10-23 13:47 | NUR ---
OT NOTE Attempted to see pt for second OT session and upon arrival pt was yelling out for her son, talking from one subject to other, and yelling out for "a smoke". Pt was unable to be redirected resulting in pt being inappropriate for therapy at this time. Will continue with POC as able. CHANTAL James/Surendra
--- NOTE | 2018-10-23 14:44 | NUR ---
PTT 51.8; NO CHANGES TO HEPARIN GTT. NEXT aPTT IN THE AM.
--- NOTE | 2018-10-23 15:54 | NUR ---
JOHNATHON spoke with Senia from [facility]- Patient was approved. -JOHNATHON Correia
[2018-10-23 16:00] VITALS: BP 113/61; BP 98/58
--- NOTE | 2018-10-23 16:00 | NUR ---
OCCUPATIONAL THERAPY CO-SIGN I approve of the Occupational Therapy notes written above. PETR WATERMAN OTR/Surendra
--- NOTE | 2018-10-23 18:30 | NUR ---
PT BEGINNING TO BECOME MORE CONFUSED AND YELL OUT. REORIENTED PATIENT AND ATTEMPTED TO CALM HER. BED ALARM IS ON; CALL LIGHT IN REACH.
[2018-10-23 20:00] VITALS: BP 123/63
[2018-10-24] VITALS (7 sets, daily range): BP systolic 105–146; BP diastolic 49–90
--- NOTE | 2018-10-24 02:25 | NUR ---
24 HR chart check completed.
[2018-10-24 05:57] LABS: CREATININE 3.16 mg/dL (0.55-1.02); POTASSIUM 4.3 mmol/L (3.5-5.1)
[2018-10-24 06:13] LABS: BASO % 0.3 % (0.0-1.0); EOS # 0.5 10*3/uL (0.0-0.4); EOS % 4.6 % (1.0-4.0); HEMATOCRIT 27.2 % (37.0-47.0); HEMOGLOBIN 8.7 g/dl (12.0-16.0); LYMPH # 1.6 10*3/uL (1.3-4.4); MEAN CORPUSCULAR HGB 29.1 pg (27.0-31.0); MEAN PLATELET VOLUME 9.7 fl (9.6-12.3); MONO # 1.1 10*3/uL (0.1-1.0); MONO % 10.9 % (3.0-9.0); NEUT # 6.7 10*3/uL (2.3-7.9); NEUT % 67.5 % (47.0-73.0); PLATELET COUNT AUTOMATED 442 10*3/uL (130-400); RED BLOOD COUNT 2.99 10*6/uL (4.10-5.10); WHITE BLOOD COUNT 9.8 10*3/uL (4.8-10.8)
[2018-10-24 06:17] LABS: ACT PARTIAL THROMBO TIME 59.2 SECONDS (20.0-32.1)
--- NOTE | 2018-10-24 08:25 | NUR ---
Patient recieved auth for [facility]. Auth is good through end of day Saturday10/26/18. Patient can go anytime over the weekend if medically stable for discharge.
--- NOTE | 2018-10-24 08:47 | NUR ---
APTT 59.2. NO CHANGE TO HEPARIN INFUSION PER POLICY. APTT ORDERED FOR 0530 10/25.
--- NOTE | 2018-10-24 10:20 | NUR ---
PHYSICAL THERAPY Patient seen this am 1:1 for therapy visit and was supine in bed upon therapist arrival. Patient reports no new c/o's and presented with L AFO brace while transfering supine to sit EOB, MOD A x 1. Patient performed several sit to stand transfers CONTROLLER REPAIRER AND TESTER/MIN, demonstrating "toe in" L foot posture. Patient needed v/c to improve initial rise with increased upright posture. Patient also completed SPT to bedside chair CONTROLLER REPAIRER AND TESTER/MOD A with v/c for improved step sequence. Patient able to perform seated marching, LAQ, B LE therex x 10 reps each without c/o and remained in bedside chair with call light, tray table and body alarm. Will continue per POC as tolerated, total treatment time 14 minutes. Rao Daniels, AOC AIRSPACE CONTROL OFFICER
--- NOTE | 2018-10-24 10:25 | NUR ---
OT NOTE Pt was seen this A.M. 1:1 for 25 minute OT session. Upon arrival pt was supine in bed. Pt identified by name and and presented with increased confusion as indicated by speaking of people who were not in the room, unable to answer questions, and being unoriented to place. Pt transferred supine to sit EOB with modA for assist with UB. While sitting EOB pt donned R sock with modA and presented with L boot already on. Sit to stand completed from bed level with modA BURN TABLE OPERATOR followed by stand pivot from the EOB to the recliner with modA. Challenged pt's static standing tolerance needed for increased I and enhanced activity tolerance. Pt was able to tolerate aprox 20-30 seconds at a time before sitting due to fatigue and pain in B ankles. While sitting upright in the recliner pt completed UB bathing and hair care with [place] for set up of task, sequencing, and reaching back of head for hair care. Pt was left sitting upright in the recliner with call light in hand, tray table in place, and body alarm on for safety. Continue with rec D/C plan to SNF. CHANTAL James/Surendra
--- NOTE | 2018-10-24 13:25 | NUR ---
Patient updated clinicals faxed to [facility] for review. Notified facility to expect patient discharge saturday. Precert Authorization is good through Thursday 10/26. Patient is ok to go over the weekend if medically stable for discharge.
--- NOTE | 2018-10-24 20:00 | NUR ---
SITTING UP IN CHAIR. HEPARIN GTT INFUSING ORDERED. PT. VOICES NO C/O AT THIS TIME. CALL LIGHT WITHIN REACH.
--- NOTE | 2018-10-24 22:00 | NUR ---
TOOK PO MEDICATION WITHOUT DIFFICULTY. PERIODS OF CONFUSION NOTED. HEPARIN GTT INFUSING ORDERED; SITE ASYMPTOMTIAC. PT. VOICES NO C/O AT THIS TIME. CALL LIGHT WITHIN REACH.
[2018-10-25] VITALS: BP 147/53
--- NOTE | 2018-10-25 00:59 | NUR ---
PATIENT HAS NO VOICED COMPLAINTS AT THIS TIME. LYING IN BED. NO DISTRESS NOTED. HEPP GTT MAINTAINED.
[2018-10-25 06:17] LABS: BASO % 0.3 % (0.0-1.0); EOS # 0.4 10*3/uL (0.0-0.4); EOS % 4.5 % (1.0-4.0); HEMATOCRIT 27.2 % (37.0-47.0); HEMOGLOBIN 8.7 g/dl (12.0-16.0); LYMPH # 1.8 10*3/uL (1.3-4.4); LYMPH % 19.4 % (27.0-41.0); MEAN CORPUSCULAR HGB 29.1 pg (27.0-31.0); MEAN PLATELET VOLUME 9.7 fl (9.6-12.3); MONO % 10.8 % (3.0-9.0); NEUT % 64.7 % (47.0-73.0); PLATELET COUNT AUTOMATED 430 10*3/uL (130-400); RED BLOOD COUNT 2.99 10*6/uL (4.10-5.10); RED CELL DISTRI WIDTH 16.5 % (0-14.5); WHITE BLOOD COUNT 9.3 10*3/uL (4.8-10.8)
[2018-10-25 06:30] LABS: CREATININE 4.2 mg/dL (0.55-1.02); POTASSIUM 4.7 mmol/L (3.5-5.1)
[2018-10-25 08:00] VITALS: BP 132/48
[2018-10-25 08:37] LABS: ACT PARTIAL THROMBO TIME 61.2 SECONDS (20.0-32.1); INTERNATIONAL NORM RATIO 1.2 (2.0-3.5)
--- NOTE | 2018-10-25 08:49 | NUR ---
APTT 61.2 TODAY. NO CHANGE PER POLICY.
--- NOTE | 2018-10-25 09:01 | NUR ---
PT DOWN TO DILAYSIS.
--- NOTE | 2018-10-25 12:44 | NUR ---
BACK TO ROOM FOLLOWING DIALYSIS. VSS. 2.3 KILO'S REMOVED PER DIALYSIS NURSE.
--- NOTE | 2018-10-25 14:06 | NUR ---
PT C/O PAIN TO GROIN/KAT CATH AREA. OLD BLOOD TO INSERTION SITE NOTED ALONG WITH SMALL AMOUNTS OF BRIGHT RED BLOOD WHEN WIPPING AREA WITH MOIST CLOTH. KAT CATH IS SIZE 18FR AND WAS INSERTED ON 10/23. NOTIFIED OF COMPLAINTS AND BLOOD. ORDERED TO REMOVE KAT CATH AND REPLACE WITH A 16FR.
--- NOTE | 2018-10-25 14:47 | NUR ---
WOUND CARE COMPLETED. PT DID NOT TOLERATE WELL. CRYING IN PAIN AFTER BETADINE WAS PLACED TO WOUNDS ON LEFT FOOT. PT STATES IT IS BURNING. NO REDNESS TO SKIN OR WOUND NOTED. STATES IT RICHARDSON LIKE THIS EACH TIME HER WOULD DRSG IS CHANGED. ATTEMPTED TO NOTIFY . NO ANSWER.
--- NOTE | 2018-10-25 14:56 | NUR ---
SKIN TO WOUNDS ON LEFT FOOT CHECKED PER PT REQUEST. NO CHANGE TO PERISKIN OF WOUND. NO REDNESS OR SWELLING TO SITE NOTED. DRSG CHANGED PER REQUEST. PT STATES IT FEELS BETTER. TK DOCKERY RN ASSISTED WITH DRSG CHANGE AND SKIN ASSESSMENT.
--- NOTE | 2018-10-25 15:25 | NUR ---
PT NO LONGER CRYING IN PAIN. MORE RESTFUL AT THIS TIME. STATES THE PAIN IS BETTER AND MORE TOLERABLE. CALL LIGHT IN REACH. BED ALARM ON.
--- NOTE | 2018-10-25 15:43 | NUR ---
IN TO SEE PT.
[2018-10-25 16:00] VITALS: BP 107/79
[2018-10-25 20:00] VITALS: BP 102/47
[2018-10-26] VITALS: BP 110/60
[2018-10-26 07:55] LABS: INTERNATIONAL NORM RATIO 1.7 (2.0-3.5)
[2018-10-26 08:00] VITALS: BP 129/47
--- NOTE | 2018-10-26 08:03 | NUR ---
PT ANXIOUS AND CONFUSED AT THIS TIME. PT YELLING OUT SAYING SHE WANTS TO BE TRANSFERED. THIS NURSE REPOSITIONED PATIENT AND COVERED HER UP WITH A WARM BLANKET. OFFERED PATIENT A PAIN PILL PER PRN ORDER. PT REFUSED. VSS. WILL CONTINUE TO MONITOR.
--- NOTE | 2018-10-26 08:05 | NUR ---
CRITICAL APTT 86.5. HEPARIN HELD FOR 60 MINUTES PER POLICY. HEPARIN WILL RESTART AT 15 UNITS/KG IN 1 HOUR. WILL CONTINUE TO MONITOR.
[2018-10-26 08:06] LABS: ACT PARTIAL THROMBO TIME 86.5 SECONDS (20.0-32.1)
[2018-10-26] MEDS ORDERED: COUMADIN5 M2 PO (08:38)
--- NOTE | 2018-10-26 10:31 | NUR ---
PATIENT ANXIOUS AND AGITATED WITH STAFF. PT REFUSING DRESSINGS TO BE CHANGED. UNABLE TO OBTAIN DISCHARGE PHOTOS.
--- NOTE | 2018-10-26 11:24 | NUR ---
FAMILY AT BEDSIDE AND UPDATED REGARDING DISCHARGE TODAY.
--- NOTE | 2018-10-26 13:00 | NUR ---
AMBULANCE HERE TO TRANSPORT PATIENT BACK TO [facility].
--- NOTE | 2018-10-26 13:32 | NUR ---
REPORT GIVEN TO NURSE AT [facility].
--- NOTE | 2018-10-27 08:11 | NUR ---
OCCUPATIONAL THERAPY CO-SIGN I approve of the Occupational Therapy notes written above. PETR WATERMAN OTR/Surendra
[2018-10-30] MEDS ORDERED: COUMADIN2.5 M1 PO (04:22)
[2018-10-30] MEDS ORDERED: ZESTRIL20 MG PO (04:24)
--- NOTE | 2018-10-30 16:20 | NUR ---
PHYSICAL THERAPY CO-SIGN I approve of the Phyical Therapy notes written above. KEN TIJERINA
[2018-11-01] MEDS ORDERED: WARFARIN SOD5 MG PO (09:07)
== END 2018-10-26 13:00 | disposition other institution (70) | DRG 871 ==
LOC: ED 16:20 → EDHOLD 18:14 → 5E 18:14 → EDHOLD 18:41 → 5E 18:49 → ICCU 10-21 05:38 → 5E 10-21 17:12
PROVIDERS: Family Medicine; Hospitalist; Internal Medicine; Student in an Organized Health Care Education/Training Program; ADMIT Emergency Medicine
PROC: 5A1D70Z Performance of Urinary Filtration, Intermittent, Less than 6 Hours Per Day (ICD-10-PCS; principal; 2018-10-14)
PROC: 5A1D70Z Performance of Urinary Filtration, Intermittent, Less than 6 Hours Per Day (ICD-10-PCS; 2018-10-16)
PROC: 5A1D70Z Performance of Urinary Filtration, Intermittent, Less than 6 Hours Per Day (ICD-10-PCS; 2018-10-18)
PROC: 30233N1 Transfusion of Nonautologous Red Blood Cells into Peripheral Vein, Percutaneous Approach (ICD-10-PCS; 2018-10-21)
PROC: 5A1D70Z Performance of Urinary Filtration, Intermittent, Less than 6 Hours Per Day (ICD-10-PCS; 2018-10-21)
PROC: 5A1D70Z Performance of Urinary Filtration, Intermittent, Less than 6 Hours Per Day (ICD-10-PCS; 2018-10-23)
PROC: 5A1D70Z Performance of Urinary Filtration, Intermittent, Less than 6 Hours Per Day (ICD-10-PCS; 2018-10-25)
DX: A41.9 Sepsis, unspecified organism (principal); J18.9 Pneumonia, unspecified organism; N18.6 End stage renal disease; E43 Unspecified severe protein-calorie malnutrition; N17.0 Acute kidney failure with tubular necrosis; I50.33 Acute on chronic diastolic (congestive) heart failure; I13.2 Hypertensive heart and chronic kidney disease with heart failure and with stage 5 chronic kidney disease, or end stage renal disease; L97.429 Non-pressure chronic ulcer of left heel and midfoot with unspecified severity; J44.0 Chronic obstructive pulmonary disease with (acute) lower respiratory infection; I16.1 Hypertensive emergency; N39.0 Urinary tract infection, site not specified; I05.0 Rheumatic mitral stenosis; I35.0 Nonrheumatic aortic (valve) stenosis; E11.51 Type 2 diabetes mellitus with diabetic peripheral angiopathy without gangrene; K21.9 Gastro-esophageal reflux disease without esophagitis; I48.0 Paroxysmal atrial fibrillation; E78.5 Hyperlipidemia, unspecified; I25.10 Atherosclerotic heart disease of native coronary artery without angina pectoris; G89.29 Other chronic pain; E11.621 Type 2 diabetes mellitus with foot ulcer; E83.41 Hypermagnesemia; E11.22 Type 2 diabetes mellitus with diabetic chronic kidney disease; D63.8 Anemia in other chronic diseases classified elsewhere; E11.65 Type 2 diabetes mellitus with hyperglycemia; L89.152 Pressure ulcer of sacral region, stage 2; Z99.81 Dependence on supplemental oxygen; Z91.040 Latex allergy status; Z88.0 Allergy status to penicillin; Z91.09 Other allergy status, other than to drugs and biological substances; Z86.73 Personal history of transient ischemic attack (TIA), and cerebral infarction without residual deficits; Z91.81 History of falling; I25.2 Old myocardial infarction; Z87.440 Personal history of urinary (tract) infections; Z87.891 Personal history of nicotine dependence; Z82.49 Family history of ischemic heart disease and other diseases of the circulatory system; Z82.0 Family history of epilepsy and other diseases of the nervous system; Z83.3 Family history of diabetes mellitus; Z84.1 Family history of disorders of kidney and ureter; Z79.899 Other long term (current) drug therapy; Z79.02 Long term (current) use of antithrombotics/antiplatelets; Z99.2 Dependence on renal dialysis; Z68.20 Body mass index [BMI] 20.0-20.9, adult

== ENCOUNTER 2018-11-09 22:49 | Inpatient (IN) | payer BC, MEDICARE ==
[~2018-11-09] VITALS: Ht 157.5 cm; Wt 49.1 kg
--- NOTE | ~2018-11-09 | EKG ---
[place], [place] ELECTROCARDIOGRAM REPORT NAME: CHARLES SINGH UNIT #: [id number] ROOM: [facility] DOCTOR: DERIK DRAFT REPORT BIRTHDATE: [birth year] [facility] Test Date: 2018-11-09 Test Time: 22:48:51 Pat Name: CHARLES SINGH Department: Room: [facility] Gender: F Land Economist: : 1945 Requested By: LORI WASHINGTON Order Number: [id number] Reading MD: Kal Boo MD Measurements Intervals [place] Rate: 86 P: 74 TX: 154 QRS: 78 QRSD: 103 T: 248 QT: 380 QTc: 455 Interpretive Statements Sinus rhythm Left atrial enlargement LVH with secondary repolarization abnormality Compared to ECG 10/30/2018 06:37:59 No significant changes Electronically Signed On 11-12-2018 14:26:34 PDT by Kal Boo MD CM:EKGRPT:ELECTROCARDIOGRAM REPORT [id number] LORI UMANZOR DRAFT REPORT LORI WASHINGTON DO
--- NOTE | ~2018-11-09 | EKG ---
[place], [place] ELECTROCARDIOGRAM REPORT NAME: CHARLES SINGH UNIT #: [id number] ROOM: [facility] DOCTOR: DERIK DRAFT REPORT BIRTHDATE: [birth year] [facility] Test Date: 2018-11-10 Test Time: 01:48:54 Pat Name: CHARLES SINGH Department: Room: [facility] Gender: F Dean Of Education: ANDREW : 1945 Requested By: LORI WASHINGTON Order Number: [id number] Reading MD: Measurements Intervals [place] Rate: 80 P: 84 NC: 160 QRS: 86 QRSD: 107 T: 255 QT: 418 QTc: 483 Interpretive Statements Sinus rhythm Left atrial enlargement Borderline right axis deviation LVH with secondary repolarization abnormality Compared to ECG 10/30/2018 06:37:59 No significant changes CM:EKGRPT:ELECTROCARDIOGRAM REPORT [id number] LORI UMANZOR DRAFT REPORT LORI WASHINGTON DO
--- NOTE | ~2018-11-09 | EKG ---
[place], [place] ELECTROCARDIOGRAM REPORT NAME: CHARLES SINGH UNIT #: [id number] ROOM: [facility] DOCTOR: DERIK DRAFT REPORT BIRTHDATE: [birth year] [facility] Test Date: 2018-11-10 Test Time: 04:31:40 Pat Name: CHARLES SINGH Department: Room: [facility] Gender: F Chaser Tar: Arley Dale : 1945 Requested By: LORI WASHINGTON Order Number: [id number] Reading MD: Kal Boo MD Measurements Intervals [place] Rate: 73 P: 90 TX: 153 QRS: 90 QRSD: 104 T: -89 QT: 424 QTc: 468 Interpretive Statements Sinus rhythm Probable left atrial enlargement Borderline right axis deviation Consider anterior infarct Borderline repolarization abnormality Compared to ECG 10/30/2018 06:37:59 Myocardial infarct finding now present Left ventricular hypertrophy no longer present Electronically Signed On 11-12-2018 14:29:44 PDT by Kal Boo MD CM:EKGRPT:ELECTROCARDIOGRAM REPORT [id number] LORI UMANZOR DRAFT REPORT LORI WASHINGTON DO
[~2018-11-09 22:49] MED LIST changes: +CARVEDILOL25 MG PO; +COUMADIN2.5 M1 PO; +COUMADIN5 M2 PO; +NITROSTAT0.4 MG SL; +PRINIVIL10 MG PO; +TYLENOL325 M3 PO; +VIBRAMYCIN100 MG PO; +WARFARIN SOD5 MG PO; +ZESTRIL20 MG PO
[2018-11-09 22:55] VITALS: BP 104/52
[2018-11-09 23:38] VITALS: BP 90/40
--- NOTE | 2018-11-09 23:41 | NUR ---
ATTEMPTED TO REMOVE NRB AND PLACE PATIENT ON HER 4 LITERS DEPENDENT O2 VIA NC... UNSUCCESSFUL. SPO2 85-86% ON 4 LITERS NASAL O2. PLACED BACK ON NRB
[2018-11-10] VITALS (15 sets, daily range): BP systolic 80–176; BP diastolic 35–77
[2018-11-10 00:03] LABS: HEMATOCRIT 22.8 % (37.0-47.0); HEMOGLOBIN 7.1 g/dl (12.0-16.0); MEAN CELL VOLUME 96.6 fl (81.0-99.0); MEAN CORPUSCULAR HGB 30.1 pg (27.0-31.0); MEAN CORPUSCULAR HGB CONC 31.1 g/dl (33.0-37.0); MEAN PLATELET VOLUME 10.4 fl (9.6-12.3); PLATELET COUNT AUTOMATED 425 10*3/uL (130-400); RED BLOOD COUNT 2.36 10*6/uL (4.10-5.10); RED CELL DISTRI WIDTH 18.5 % (0-14.5); WHITE BLOOD COUNT 14.4 10*3/uL (4.8-10.8)
[2018-11-10 00:15] LABS: ACT PARTIAL THROMBO TIME 33.1 SECONDS (20.0-32.1); INTERNATIONAL NORM RATIO 1.5 (2.0-3.5)
[2018-11-10 00:19] LABS: ALBUMIN 2.5 gm/dl (3.1-4.5); CREATININE 4.17 mg/dL (0.55-1.02); POTASSIUM 4.1 mmol/L (3.5-5.1); TOTAL PROTEIN 6.9 gm/dL (6.4-8.2)
[2018-11-10 00:21] LABS: TROPONIN I 0.015 ng/ml (<0.045)
--- NOTE | 2018-11-10 00:26 | NUR ---
DR. WASHINGTON AWARE OF CRITICAL LA 2.1
[2018-11-10 00:27] LABS: PLATELET SUFFICIENCY HIGH (NORMAL); TOTAL CELLS COUNTED 100 #CELLS
[2018-11-10 00:28] LABS: OVALOCYTES FEW
--- NOTE | 2018-11-10 01:25 | NUR ---
PT STABLE AND READY FOR TRANSPORT TO ICCU.
--- NOTE | 2018-11-10 01:35 | NUR ---
A 73, admitted to [facility]U, under the services of SHAILESH Johnson DO with a diagnosis of HCAP,SEVERE SEPSIS,HYPOTENSION. Chief complaint is SHORTNESS OF BREATH. Patient arrived via ambulance from ER. Monitor applied. Initial assessment completed. Vital signs taken and recorded. SHAILESH JOHNSON DO notified of admission to the unit. Orders received. See assessment for past medical history, medications and allergies. Patient and/or family oriented to unit. [facility] visitation policy reviewed. Clothing/patient valuable form completed. RENATE WEEKS
--- NOTE | 2018-11-10 01:57 | NUR ---
SPOKE WITH DIANDRA, NURSE AT [facility] AND INFORMED HER THAT THIS PATIENT WAS ADMITTED INTO [facility].
--- NOTE | 2018-11-10 02:29 | NUR ---
CONSULTS CALLED TO DR LIMA OFFICE AND DR WASHINGTON AT INFECTIOUS DISEASE.
--- NOTE | 2018-11-10 02:30 | NUR ---
RECEIVED ORDERS FROM DR PUTNAM. PATIENT PLACED ON BIPAP. TOLERATING WELL. NO S/S OF DISTRESS CURRENTLY. CALL LIGHT IN REACH.
[2018-11-10] MEDS ORDERED: COUMADIN2.5 M1 PO (02:38)
[2018-11-10] MEDS ORDERED: TRAMADOL HCL50 MG PO (02:41)
--- NOTE | 2018-11-10 04:30 | NUR ---
DR PUTNAM GIVES PERMISSION TO LEAVE ACZACTAM UNTIL PHARMACY ARRIVES AT 7AM TO PREPARE IT.
[2018-11-10 04:53] LABS: BASO % 0.1 % (0.0-1.0); EOS # 0.5 10*3/uL (0.0-0.4); EOS % 4.1 % (1.0-4.0); HEMATOCRIT 23.4 % (37.0-47.0); HEMOGLOBIN 7.2 g/dl (12.0-16.0); LYMPH # 1.9 10*3/uL (1.3-4.4); LYMPH % 16.4 % (27.0-41.0); MEAN CELL VOLUME 97.1 fl (81.0-99.0); MEAN CORPUSCULAR HGB 29.9 pg (27.0-31.0); MEAN CORPUSCULAR HGB CONC 30.8 g/dl (33.0-37.0); MEAN PLATELET VOLUME 9.9 fl (9.6-12.3); MONO % 8.7 % (3.0-9.0); NEUT % 70.4 % (47.0-73.0); PLATELET COUNT AUTOMATED 365 10*3/uL (130-400); RED BLOOD COUNT 2.41 10*6/uL (4.10-5.10); RED CELL DISTRI WIDTH 18.3 % (0-14.5); WHITE BLOOD COUNT 11.4 10*3/uL (4.8-10.8)
--- NOTE | 2018-11-10 05:14 | NUR ---
CALLED DR PUTNAM WITH ELEVATED TROPONIN RESULTS. NO NEW ORDERS RECEIVED AT THIS TIME.
[2018-11-10 05:16] LABS: ALBUMIN 2.5 gm/dl (3.1-4.5); CREATININE 3.98 mg/dL (0.55-1.02); PHOSPHOROUS 5.5 mg/dL (2.5-4.9); POTASSIUM 4.5 mmol/L (3.5-5.1); TOTAL PROTEIN 6.4 gm/dL (6.4-8.2)
[2018-11-10 05:17] LABS: ACT PARTIAL THROMBO TIME 35.6 SECONDS (20.0-32.1); INTERNATIONAL NORM RATIO 1.5 (2.0-3.5)
--- NOTE | 2018-11-10 06:31 | NUR ---
PATIENT RECEIVED MORNING MEDS. NO S/S OF DISTRESS. BIPAP MASK PLACED BACK ON FACE, NO LEAK DETECTED. PATIENT'S O2 SATURATION AT 98% ON BIPAP. PATIENT IS MILDLY CONFUSED. ALERT TO SELF. CALL LIGHT PLACED WITHIN REACH. BED ALARM IS ARMED.
--- NOTE | 2018-11-10 07:10 | NUR ---
WALE, WOUND CARE NURSE, HERE TO SEE PT. SHE MEASUREED PT'S WOUNDS AND REDRESSED PT'S LEFT FOOT WOUNDS. WALE ADVISED NOT TO PUT TEDS OR TUBIGRIPS ON PT R/T HER POOR CIRCULATION. SHE STATED SCD'S WOULD BE OK.
--- NOTE | 2018-11-10 07:15 | NUR ---
DR JERAMIE KAYELED IN REGARDING PT. WHEN I NOTIFIED HIM OF PT'S SBP 80'S IN LEFT ARM HE STATED TO CHECK BOTH ARMS BECAUSE SHE IS KNOWN TO HAVE BP'S DIFFER GREATLY FROM ARM TO ARM. BP 81/59 IN LEFT ARM AND 190/71 IN RIGHT ARM. HE ALSO STATED TO RECHECK PT'S H/H LATER THIS AFTERNOON BEFORE ANY TRANSFUSION TO BE GIVEN AND SEND STOOL FOR OCCULT BLOOD. WILL UPDATE DR LAND WHEN HE MAKES ROUNDS.
--- NOTE | 2018-11-10 07:42 | NUR ---
RESP. THERAPIST PLACED PT ON 8L HIGH FLOW OXYGEN TO SEE IF PT CAN TOLERATE.
--- NOTE | 2018-11-10 07:42 | NUR ---
SPO2 100% ON 15L DECREASED TO 8L RN AWARE PT ON CONTINUOUS PULSE OX
--- NOTE | 2018-11-10 07:50 | NUR ---
OXYGEN INCREASED TO 10 LITERS DUE TO LOW PULSE OX.
--- NOTE | 2018-11-10 08:00 | NUR ---
PT AWAKE AND ALERT TO SELF ONLY. BP'S RECHECKED AGAIN. LEFT ARM 91/58 , RIGHT ARM 176/61 , RIGHT LEG 179/71. PB RALES NOTED IN LUNG COBIAN. POX 93% ON 15 LITERS HIGH FLOW OXYGEN. PT DENIES HAVING A COUGH AT THIS TIME. ABD. SOFT WITH ACTIVE BOWEL SOUNDS. DRESSINGS INTACT TO COCCYX AND LEFT FOOT. NO PERIPHERAL EDEMA NOTED AT THIS TIME. WILL CONTINUE TO MONITOR PT.
--- NOTE | 2018-11-10 08:15 | NUR ---
PT PLACED BACK TO BIPAP FOR CONITNUEED LOW PULSE OX.
--- NOTE | 2018-11-10 08:24 | NUR ---
RN STATES SPO2 DROPPED WHILE ASLEEP SHE INCREASED O2 BACK TO 15L AT THIS TIME SPO2 95% ON 15L PT IN NO DISTRESS RN STATES PT IS GOING TO EAT BREAKFAST BIPAP ON STANDBY
--- NOTE | 2018-11-10 08:30 | NUR ---
SPOKW WITH HARLEY GORDILLO R/T PT'S NEED FOR CONTACT ISOLATION. SHE STATED PT DOES NOT NEED CONTACT ISOLATION AT THIS TIME.
--- NOTE | 2018-11-10 08:41 | NUR ---
FRANCISCOCHARLES [id number] Please refer to the physician's history and physical for past medical history, comorbid conditions, and allergies. Diagnosis: HCAP SEVERE SEPSIS, HYPOTENSION Wolfgang Score: 14,MODERATE RISK WOUND DESCRIPTIONS: Wound Number: 1 Location of the wound: LEFT MEDIAL FOOT Thickness: Partial Size: 0.8cm X 0.2cm X 0.1cm Tunneling: NONE Undermining: NONE Sinus Tract: NONE Presence of Exudate: Serous Amount: Light Color: Gentry Odor: None Periwound Skin Appearance: Erythema Wound edges: APPROXIMATED Pain (associated with wound): DENIED AT TIME OF ASSESSMENT How does patient state this happened? PATIENT UNSURE HOW THIS HAPPENED. If wound is on legs/feet or hands, capillary refill time, pulses, color temp, sensation: CAP REFILL < 3 SECONDS. Wound Number: 2 Location of the wound: COCCYX Type of wound: STAGE 2 Thickness: Partial Size: 0.9cM X 0.3cm X 0.1cm Tunneling: NONE Undermining: NONE Sinus Tract: NONE Presence of Exudate: Serous Amount: Light Color: Red Odor: None Periwound Skin Appearance: Normal Wound edges: APPROXIMATED Pain (associated with wound): DENIED AT TIME OF ASSESSMENT How does patient state this happened? PATIENT UNSURE HOW THIS HAPPENED. Wound Number: 3 Location of the wound: LEFT HEEL Type of wound: UNSTAGEABLE Thickness: Full Size: 3cM X 4.8cm X <0.1cm Tunneling: NONE Undermining: NONE Sinus Tract: NONE Presence of Exudate: Amount: None Color: Black Odor: None Periwound Skin Appearance: Erythema Wound edges: ESCHAR COVERED. Pain (associated with wound): DENIED AT TIME OF ASSESSMENT How does patient state this happened? PATIENT UNSURE HOW THIS HAPPENED. If wound is on legs/feet or hands, capillary refill time, pulses, color temp, sensation: CAP REFILL < 3 SECONDS WOUND #4 LEFT SARAVIA SKIN INTACT. NO ERYTHEMA. NO DRAINAGE. PATIENT DENIED PAIN AT TIME OF ASSESSMENT. Wound Number: 5 Location of the wound: LEFT LATER FOOT Thickness: Full Size: 0.3cm X 0.7cm X <0.1cm Tunneling: NONE Undermining: NONE Sinus Tract: NONE Presence of Exudate: NONE Amount: None Color: Brown Odor: None Periwound Skin Appearance: Erythema Wound edges: ESCHAR COVERED. Pain (associated with wound): DENIED AT TIME OF ASSESSMENT How does patient state this happened? PATIENT UNSURE HOW THIS HAPPENED. If wound is on legs/feet or hands, capillary refill time, pulses, color temp, sensation: CAP REFILL < 3 SECONDS. Surface the patient is resting on: Isoflex SKIN PREVENTION RECOMMENDATION: 1. Pressure redistribution support surface as appropriate 2. Elevate heels 3. Remove boots/TEDS every shift and reapply 4. Head of bed 30 degrees as tolerated 5. Assess nutrition and hydration 6. Manage moisture 7. Avoid the use of containment devices while in bed 8. Use absorptive products on surfaces limit layers of linens on bed 9. Turn and reposition every 1-2 hours in bed and every 1 hour in chair as tolerated 10. Weight shifts every 15 minutes while up in chair 11. Offloading with pillows or device to keep heels elevated off bed 12. Monitor skin at least every shift 13. Inspect under medical devices twice a day WOUND TREATMENT RECOMMENDATIONS: CONSULT PODIATRY FOR LEFT FOOT WOUNDS. DRESSING CHANGE TO LEFT MEDIAL AND LATERAL FOOT AND LEFT HEEL: CLEANSE WITH NSS APPLY BETADINE AND COVER WITH ABD AND KERLIX. CHANGE DAILY AND PRN SOILING. STAGE 2 GUIDELINES TO COCCYX: CLEANSE WITH NSS APPLY SUREPREP AROUND THE WOUND ALLOW TO DRY APPLY HYDROGEL AND COVER WITH OPTIFOAM GENTLE. HEEL RAISER PRO BOOTS WHILE IN BED. WHEEL CHAIR CUSHION WHEN OUT OF BED.
--- NOTE | 2018-11-10 08:45 | NUR ---
DR LAND IN TO SEE PT. UPDATED HIM ON PT'S CONDITION,LABS AND PLAN OF CARE. NEW ORDERS RECEIVED.
--- NOTE | 2018-11-10 09:07 | NUR ---
PHYSICAL THERAPY Nursing screen received and chart reviewed. Physical therapy referral received. Thank you. Marlin Joseph,PT,DPT.
--- NOTE | 2018-11-10 09:09 | NUR ---
DR ARIAS CALLED IN REGARDING PT. UPDATED HER ON PT'S CONDITION AND CLEARED ANTIBIOTIC CHOICES WITH HER. DR LAND NOTIFIED OF HER SUGGESTIONS.
--- NOTE | 2018-11-10 09:27 | NUR ---
RN PLACED PT BACK ON BIPAP SPO2 IN MID 90S ON BIPAP
[2018-11-10 09:28] LABS: ABG BASE EXCESS -0.7 mmol/L (-2.0-2.0); ABG HCO3 23.8 mmol/l (22-26); ARTERIAL BLOOD GAS PCO2 41.2 mmHg (35-45); ARTERIAL BLOOD GAS PH 7.379 (7.35-7.45)
--- NOTE | 2018-11-10 10:32 | NUR ---
PHYSICAL THERAPY Physical therapy evaluation attempted. Patient on BiPAP at this time. Will try again later. Thank you. Marlin Joseph,PT,DPT.
--- NOTE | 2018-11-10 10:32 | NUR ---
INSTRUCTED BY DR. MUKHERJEE ON THE BEHALF OF DR. LAND'S GROUP TO LEAVE WOUND CARE RECOMMENDATIONS IN HOSPITALIST OFFICE.
--- NOTE | 2018-11-10 10:34 | NUR ---
Patient not appropriate for Occupational Therapy as she is on bipap. OTR will attempt at a later time. Suni Gomez OTR/Surendra
--- NOTE | 2018-11-10 11:16 | NUR ---
RN HAD PT ON 12L TO EAT SPO2 WAS IN 90S RN STATES THEY MOVED PT AND PT GOT SHORT OF BREATH SO SHE PLACED PT BACK ON BIPAP SPO2 98% ON 19/11 70% O2 DECREASED O2 TO 60% RN AWARE
--- NOTE | 2018-11-10 11:27 | NUR ---
MEDICATED PT PER PRN ORDER WITH NORCO FOR C/O BILATERAL KNEE PAIN THAT RATES 7/10 ON PAIN SCALE.
--- NOTE | 2018-11-10 12:00 | NUR ---
PT STATES RELIEF OF PAIN WITH EARLIER NORCO.
--- NOTE | 2018-11-10 13:03 | NUR ---
PT RESTING. VSS. NO ACUTE DISTRESS NOTED AT THIS TIME. WILL CONTINUE TO MONITOR PT.
--- NOTE | 2018-11-10 13:15 | NUR ---
DIALYSIS CLINIC NOTIFIED OF PT KANDIS HERE AND NEED FOR DIALYSIS IN THE AM.
--- NOTE | 2018-11-10 13:33 | NUR ---
PHYSICAL THERAPY Physical therapy evaluation attempted. Spoke with nursing who reports that patient had SOB and Wheezing with positioning in bed. Will try PT evaluation again at a later time/date. Thank you. Marlin Joseph,PT,DPT.
--- NOTE | 2018-11-10 13:33 | NUR ---
Patient not appropriate for Occupational Therapy eval at this time. Per nursing, the patient is SOB and wheezing with repositioning. Will attempt OT eval at a later date. Ronnie Ross S/OT Suni Gomez OTR/l
--- NOTE | 2018-11-10 14:06 | NUR ---
DR NAVARRO UPDATED ON CRITICAL H/H. INFORMED DR NAVARRO THAT PT IS NOT ACTIVELY BLEEDING FROM ANYWHERE THAT I CAN OBSERVE. VSS. HR 57 120/26 BP. ORDERED TO REDRAW LAB. ORDER PLACED. WILL CONTINUE TO MONITOR PT.
[2018-11-10 14:07] LABS: HEMOGLOBIN 5.9 g/dl (12.0-16.0)
--- NOTE | 2018-11-10 14:10 | NUR ---
patient comes from short term skilled at [facility]/Johnie. Patient requires PT/OT evals and a precert to return.
[2018-11-10 15:01] LABS: BASO % 0.2 % (0.0-1.0); EOS # 0.5 10*3/uL (0.0-0.4); EOS % 6.1 % (1.0-4.0); LYMPH # 1.6 10*3/uL (1.3-4.4); LYMPH % 18.9 % (27.0-41.0); MEAN CORPUSCULAR HGB 29.8 pg (27.0-31.0); MEAN PLATELET VOLUME 9.5 fl (9.6-12.3); MONO # 0.8 10*3/uL (0.1-1.0); MONO % 10.1 % (3.0-9.0); NEUT # 5.3 10*3/uL (2.3-7.9); NEUT % 64.5 % (47.0-73.0); PLATELET COUNT AUTOMATED 318 10*3/uL (130-400); RED BLOOD COUNT 2.05 10*6/uL (4.10-5.10); RED CELL DISTRI WIDTH 18.2 % (0-14.5); WHITE BLOOD COUNT 8.2 10*3/uL (4.8-10.8)
[2018-11-10 15:07] LABS: HEMOGLOBIN 6.1 g/dl (12.0-16.0); MEAN CELL VOLUME 96.1 fl (81.0-99.0)
--- NOTE | 2018-11-10 15:17 | NUR ---
RECEIVED TELEPHONE PERMISSION FOR PT'S BLOOD TRANSFUSION FROM HER , PEBBLES. UPDATED HIM ON PT'S CONDITION AND PLAN OF CARE. HIS QUESTIONS WERE ANSWERED.
--- NOTE | 2018-11-10 15:44 | NUR ---
BLOOD TRANSFUSION STARTED PER ORDER. VSS. DR NAVARRO IN TO SEE PT. WILL CONTINUE TO MONITOR PT.
--- NOTE | 2018-11-10 15:57 | NUR ---
DR BOBO IN TO SEE PT. UPDATED HIM ON PT'S CONDITION AND PLAN OF CARE.
[2018-11-10 16:04] LABS: HEMATOCRIT 19.7 % (37.0-47.0)
--- NOTE | 2018-11-10 16:10 | NUR ---
DR ARIAS IN TO SEE PT.
--- NOTE | 2018-11-10 16:17 | NUR ---
DR LAND AND DR NAVARRO IN TO SEE PT. PT NOTIFIED OF NEED TO TRANSFER HER TO [facility] FOR ONGOING CARE. PT VERBALIZED AGREEMENT. WILL UPDATE PT'S .
--- NOTE | 2018-11-10 16:22 | NUR ---
UPDATED PT'S ,PEBBLES, AND BUILDING CONSTRUCTION IRONWORKER OF PT'S IMPENDING TRANSFER. ROGEL AGREED TO TRANSFER.
--- NOTE | 2018-11-10 17:06 | NUR ---
CALLED DR NAVARRO TO SEE IF PT NEEDS TO BE NPO PRIOR TO TRANSFER. HE STATED THAT PT COULD EAT.
--- NOTE | 2018-11-10 20:17 | NUR ---
ASSUMED CARE OF PATIENT. RECEIVED REPORT FROM TOR SALDAÑA RN. AIDED IN CHANGING PATIENT'S BRIEF AND DRESSING COCCYX WOUND. PATIENT IS ON 12LHF NC AT THIS TIME. VITALS OBTAINED. VITALS STABLE. NO S/S OF DISTRESS. PATIENT REPOSITOINED FOR COMFORT. CALL LIGHT PLACED WITHIN REACH. BED ALARM ARMED. ASSESSMENT COMPLETED.
--- NOTE | 2018-11-10 22:16 | NUR ---
PATIENT CHANGED AND REPOSTIONED FOR COMFORT. NO S/S OF DISTRESS. TOLERATED WELL. PULSE OX STABLE. CALL LIGHT IN REACH.
[2018-11-11] VITALS: BP 149/70
--- NOTE | 2018-11-11 01:30 | NUR ---
RECEIVED CALL FROM ONE CALL, RECEIVED BED ASSIGNMENT. CALLED DR PUTNAM TO NOTIFY. DISCHARGE ORDER RECEIVED.
--- NOTE | 2018-11-11 03:58 | NUR ---
Discharge instructions reviewed with patient/family. Patient receptive and verbalizes understanding. Follow-up care arranged. Written instructions given to patient/family. PATIENT TAKEN BY ASI FROM UNIT TO BE TRANSFERRED TO [facility]. PATIENT'S NOTIFIED. RENATE WEEKS
--- NOTE | 2018-11-11 04:11 | NUR ---
Upon discharge recommend patient to follow up for wound care in outpatient setting continue current wound care orders at discharging facility.
== END 2018-11-11 03:58 | disposition short-term general hospital (02) | DRG 871 ==
LOC: ED 22:49 → ICCU 11-10 01:10 → EDHOLD 11-10 01:10 → ICCU 11-10 01:23
PROVIDERS: Internal Medicine; Student in an Organized Health Care Education/Training Program; ADMIT Internal Medicine
DX: A41.9 Sepsis, unspecified organism (principal); J18.1 Lobar pneumonia, unspecified organism; N18.6 End stage renal disease; E43 Unspecified severe protein-calorie malnutrition; J96.01 Acute respiratory failure with hypoxia; I50.30 Unspecified diastolic (congestive) heart failure; J44.0 Chronic obstructive pulmonary disease with (acute) lower respiratory infection; I13.2 Hypertensive heart and chronic kidney disease with heart failure and with stage 5 chronic kidney disease, or end stage renal disease; L97.429 Non-pressure chronic ulcer of left heel and midfoot with unspecified severity; Z68.1 Body mass index [BMI] 19.9 or less, adult; R79.89 Other specified abnormal findings of blood chemistry; E83.41 Hypermagnesemia; E83.39 Other disorders of phosphorus metabolism; E78.5 Hyperlipidemia, unspecified; I48.91 Unspecified atrial fibrillation; I35.0 Nonrheumatic aortic (valve) stenosis; G89.29 Other chronic pain; E11.65 Type 2 diabetes mellitus with hyperglycemia; E11.22 Type 2 diabetes mellitus with diabetic chronic kidney disease; I25.10 Atherosclerotic heart disease of native coronary artery without angina pectoris; L89.159 Pressure ulcer of sacral region, unspecified stage; E11.621 Type 2 diabetes mellitus with foot ulcer; K59.00 Constipation, unspecified; K21.9 Gastro-esophageal reflux disease without esophagitis; R65.20 Severe sepsis without septic shock; D63.1 Anemia in chronic kidney disease; Z99.2 Dependence on renal dialysis; Z79.01 Long term (current) use of anticoagulants; Z99.81 Dependence on supplemental oxygen; Z86.73 Personal history of transient ischemic attack (TIA), and cerebral infarction without residual deficits; Z91.81 History of falling; I25.2 Old myocardial infarction; Z87.891 Personal history of nicotine dependence; Z82.49 Family history of ischemic heart disease and other diseases of the circulatory system; Z84.1 Family history of disorders of kidney and ureter; Z82.0 Family history of epilepsy and other diseases of the nervous system; Z83.3 Family history of diabetes mellitus; Z91.040 Latex allergy status; Z91.09 Other allergy status, other than to drugs and biological substances; Z88.0 Allergy status to penicillin; Z79.899 Other long term (current) drug therapy; Z79.02 Long term (current) use of antithrombotics/antiplatelets

== ENCOUNTER 2019-01-05 19:19 | Inpatient (IN) | payer BC, MEDICARE ==
[~2019-01-05] VITALS: Ht 170.2 cm; Wt 46.3 kg
[2019-01-05 19:25] VITALS: BP 117/72
[2019-01-05 19:59] VITALS: BP 111/56
[2019-01-05 21:09] LABS: BASO % 0.3 % (0.0-1.0); EOS # 0.6 10*3/uL (0.0-0.4); EOS % 5.7 % (1.0-4.0); HEMATOCRIT 37.8 % (37.0-47.0); HEMOGLOBIN 11.5 g/dl (12.0-16.0); LYMPH % 18.9 % (27.0-41.0); MEAN CORPUSCULAR HGB 28.6 pg (27.0-31.0); MEAN CORPUSCULAR HGB CONC 30.4 g/dl (33.0-37.0); MEAN PLATELET VOLUME 9.9 fl (9.6-12.3); MONO # 0.8 10*3/uL (0.1-1.0); MONO % 7.6 % (3.0-9.0); NEUT # 7.3 10*3/uL (2.3-7.9); NEUT % 67.2 % (47.0-73.0); PLATELET COUNT AUTOMATED 459 10*3/uL (130-400); RED BLOOD COUNT 4.02 10*6/uL (4.10-5.10); RED CELL DISTRI WIDTH 17.2 % (0-14.5); WHITE BLOOD COUNT 10.8 10*3/uL (4.8-10.8)
[2019-01-05 21:29] LABS: ALBUMIN 2.1 gm/dl (3.1-4.5); ALKALINE PHOSPHATASE 131 U/L (45-117); BUN 33 mg/dl (7-24); CHLORIDE 104 mmol/L (98-107); CREATININE 4.25 mg/dL (0.55-1.02); POTASSIUM 3.3 mmol/L (3.5-5.1); SGOT/AST 14 IU/L (3-35); SGPT/ALT 21 U/L (12-78); SODIUM 136 mmol/L (136-145); TOTAL PROTEIN 6.6 gm/dL (6.4-8.2)
[2019-01-05 21:33] LABS: TROPONIN I 0.067 ng/ml (<0.045)
[2019-01-05 21:52] LABS: NT-proBNP > 175000.00 pg/mL (0-125)
[2019-01-05 22:29] VITALS: BP 101/72
[2019-01-05 22:33] LABS: BILIRUBIN NEGATIVE (NEGATIVE); BLOOD 2+ (NEGATIVE); CLARITY SL CLOUDY (CLEAR); COLOR YELLOW (YELLOW); GLUCOSE 1+ (NEGATIVE); KETONE NEGATIVE (NEGATIVE); LEUKO ESTERASE 3+ (NEGATIVE); NITRITE NEGATIVE (NEGATIVE); SPECIFIC GRAVITY 1.015 (1.005-1.030); UROBILINOGEN 0.2 E.U./dl (0.2-1.0)
[2019-01-05 22:42] LABS: BACTERIA 2+; EPITHELIAL CELLS 0-2; WBC TNTC wbc/hpf (0-5)
[2019-01-05 23:28] VITALS: BP 103/63
--- NOTE | 2019-01-06 00:03 | NUR ---
PATIENT REFUSED FOR ME TO TAKE WRAP OFF OF LEFT FOOT THAT HAS TODAY'S DATE ON IT. PATIENT REFUSED WOUND PHOTOS AT THIS TIME. BRUISING NOTED TO THE UPPER EXTREMITIES.
[2019-01-06 00:30] VITALS: BP 95/72
--- NOTE | 2019-01-06 00:30 | NUR ---
A 73, admitted to , under the services of SHAILESH Johnson DO with a diagnosis of UTI, ENCEPHALOPATHY. Chief complaint is RIGHT LEG PAIN AND BACK PAIN. Patient arrived via stretcher from ER. Monitor applied. Initial assessment completed. Vital signs taken and recorded. SHAILESH JOHNSON DO notified of admission to the unit. Orders received. See assessment for past medical history, medications and allergies. Patient and/or family oriented to unit. [facility] visitation policy reviewed. Clothing/patient valuable form completed. CONSTANTIN WALKER
--- NOTE | 2019-01-06 00:46 | NUR ---
[facility] CALLED TO CONFIRM PT'S PCN ALLERGY REACTION. PT UNABLE TO PROVIDE PREVIOUS ALLERGIC REACTION TO PCN SHE IS ORIENTED TO SELF ONLY. RN CALLED MINISTERIO HUYNH AND JACY GARCIA UNABLE TO VERIFY PATIENT'S PREVIOUSLY REACTIONS. NOTIFIED /DR.TORMA. JANSEN TO CONTINUE MERREM ORDERED.
--- NOTE | 2019-01-06 00:52 | NUR ---
MILESK NOTIFIED OF TROPONIN AT 0.071.
[2019-01-06] MEDS ORDERED: VENTOLIN 02.5 MG/3 M INH (01:02)
[2019-01-06] MEDS ORDERED: AMIODARONE HYD200 MG PO (01:03)
[2019-01-06] MEDS ORDERED: LIPITOR80 MG PO (01:04)
[2019-01-06] MEDS ORDERED: BREO ELLIPTA 11 EACH INH (01:06)
[2019-01-06] MEDS ORDERED: CLONIDINE HCL0.1 MG PO (01:08)
[2019-01-06] MEDS ORDERED: CYCLOBENZAPRINE10 MG PO (01:09)
[2019-01-06] MEDS ORDERED: FEROSUL325 M1 PO (01:11)
[2019-01-06] MEDS ORDERED: NEURONTIN100 MG PO (01:11)
[2019-01-06] MEDS ORDERED: COZAAR100 MG PO (01:12)
[2019-01-06] MEDS ORDERED: MULTI-VITAMIN1 EACH PO (01:14)
[2019-01-06] MEDS ORDERED: NORCO 5-325 TA1 EACH PO (01:15)
[2019-01-06] MEDS ORDERED: CARAFATE1 G1 PO (01:17)
--- NOTE | 2019-01-06 01:30 | NUR ---
DR. AQUINO NOTIFIED THAT PATIENT'S MED LIST WAS UPDATED. SENIOR CARE CONFIRMED PATIENT WAS NO LONGER ON COUMADIN OR PLAVIX.
--- NOTE | 2019-01-06 01:48 | NUR ---
DR. BOBO'S ANSWERING SERVICE NOTIFIED OF NEW CONSULT FOR ACUTE ON CHRONIC KIDNEY DISEASE.
--- NOTE | 2019-01-06 01:48 | NUR ---
LAY OUT INSPECTOR DIALYSIS NOTIFIED OF ADMISSION OF SAT//SAT DIALYSIS PATIENT.
--- NOTE | 2019-01-06 01:48 | NUR ---
DR. ARIAS'S ANSWERING SERVICE NOTIFIED OF NEW CONSULT FOR MULTI DRUG RESISTANT UTI.
--- NOTE | 2019-01-06 02:36 | NUR ---
CHARLES SINGH [id number] Please refer to the physician's history and physical for past medical history, comorbid conditions, and allergies. Diagnosis: UTI ENCEPHALOPATHY Wolfgang Score: 11,HIGH RISK WOUND DESCRIPTIONS: Wound Number: 1 Location of the wound: left heel Type of wound: unstagable Thickness: Full Size: 4.5cm x 3.0cm x <0.1cm Tunneling: none Undermining: none Sinus Tract: none Presence of Exudate: none Amount: None Color: Brown, yellow Odor: None Periwound Skin Appearance: Normal Wound edges: approximated Pain (associated with wound): none at time of assessment How does patient state this happened? pt unable to state how this happened stated october but is unknown of the date at time of assessment Patient has multiple intact scabs noted to bilateral uppper extremities. No redness surrounding areas. No drainage noted at time of assessment. Patient has multiple ecchymotic areas noted at time of assessment to bilateral upper and lower extremities. Surface the patient is resting on: Isoflex SKIN PREVENTION RECOMMENDATION: 1. Pressure redistribution support surface as appropriate 2. Elevate heels 3. Remove boots/TEDS every shift and reapply 4. Head of bed 30 degrees as tolerated 5. Assess nutrition and hydration 6. Manage moisture 7. Avoid the use of containment devices while in bed 8. Use absorptive products on surfaces limit layers of linens on bed 9. Turn and reposition every 1-2 hours in bed and every 1 hour in chair as tolerated 10. Weight shifts every 15 minutes while up in chair 11. Offloading with pillows or device to keep heels elevated off bed 12. Monitor skin at least every shift 13. Inspect under medical devices twice a day WOUND TREATMENT RECOMMENDATIONS: Venous and arterial studies to BLE's due to non-healing wound. Imaging studies to left foot due to non-healing wound. Apply betadine to left heel and cover with abd pad and lightly wrap with kerlix, Heel raiser pro boots to bilateral lower extermities while in bed. Consult podiatry for area to left heel.
--- NOTE | 2019-01-06 02:50 | NUR ---
NOTIFIED DR. AQUINO THAT PATIENT ONLY HAS ONE IV WITH MERROPENUM, VANC, LEVAQUIN, AND NS TO BE INFUSED. ASKED TO SWTICH IV K RUNS TO PO PATIENT CAN TOLERATE PO INTAKE. ALSO, NOTIFIED DR. AQUINO THAT WOUND CARE RECOMMENDATIONS ARE IN.
--- NOTE | 2019-01-06 03:26 | NUR ---
NOTIFIED DR. AQUINO IN PERSON OF TROPONIN OF 0.072.
--- NOTE | 2019-01-06 03:33 | NUR ---
DR. AQUINO IN ROOM WITH ULTRASOUND LOOKING FOR IV ACCESS.
--- NOTE | 2019-01-06 03:42 | NUR ---
Upon discharge recommend patient to follow up for wound care in outpatient setting continue current wound care orders at discharging facility.
--- NOTE | 2019-01-06 05:56 | NUR ---
NOTIFIED PODIATRY RESIDENT OF NEW CONSULT FOR NONHEALING LEFT WOUND TO HEEL.
[2019-01-06 07:00] LABS: BASO % 0.3 % (0.0-1.0); EOS # 0.7 10*3/uL (0.0-0.4); EOS % 7.4 % (1.0-4.0); HEMOGLOBIN 11.6 g/dl (12.0-16.0); LYMPH # 1.4 10*3/uL (1.3-4.4); LYMPH % 15.6 % (27.0-41.0); MEAN CORPUSCULAR HGB 28.9 pg (27.0-31.0); MEAN CORPUSCULAR HGB CONC 31.4 g/dl (33.0-37.0); MEAN PLATELET VOLUME 10.1 fl (9.6-12.3); MONO # 0.6 10*3/uL (0.1-1.0); MONO % 6.9 % (3.0-9.0); NEUT # 6.4 10*3/uL (2.3-7.9); NEUT % 69.5 % (47.0-73.0); PLATELET COUNT AUTOMATED 480 10*3/uL (130-400); RED BLOOD COUNT 4.02 10*6/uL (4.10-5.10); RED CELL DISTRI WIDTH 17.2 % (0-14.5); WHITE BLOOD COUNT 9.3 10*3/uL (4.8-10.8)
[2019-01-06 07:02] LABS: ACT PARTIAL THROMBO TIME 33.7 SECONDS (20.0-32.1); INTERNATIONAL NORM RATIO 0.9 (2.0-3.5)
[2019-01-06 07:13] LABS: ALBUMIN 2.1 gm/dl (3.1-4.5); CREATININE 4.46 mg/dL (0.55-1.02); FREE T4 1.2 ng/dl (0.76-1.46); PHOSPHOROUS 2.2 mg/dL (2.5-4.9); POTASSIUM 3.8 mmol/L (3.5-5.1); TOTAL PROTEIN 6.6 gm/dL (6.4-8.2)
[2019-01-06 07:18] LABS: THYROID STIM HORMONE (HS) 2.07 uIU/ml (0.358-4.75)
--- NOTE | 2019-01-06 07:50 | NUR ---
Dr. Gutiérrez notified of wound care recommendations.
[2019-01-06 08:00] VITALS: BP 109/62
[2019-01-06 08:04] LABS: VITAMIN D, 25-HYDROXY 21.3 ng/mL (30-100)
--- NOTE | 2019-01-06 08:52 | NUR ---
Patient comes in from [facility]. Patient requires PT/OT and a precert to return.
--- NOTE | 2019-01-06 10:16 | NUR ---
Patient not available for Occupational Therapy evaluation as she is in dialysis. Nursing staff reports she left approx 9am. Suni Gomez OTR/L
--- NOTE | 2019-01-06 10:16 | NUR ---
PHYSICAL THERAPY Physical therapy evaluation attempted. Patient out of room for dialysis. Will return to complete PT evaluation at a later time/date. Thank you. Marlin Joseph,PT,DPT
--- NOTE | 2019-01-06 10:30 | NUR ---
Eligibility Supervisor in to see patient. She is currently in dialysis. Will follow up at a later time.
--- NOTE | 2019-01-06 11:19 | NUR ---
MEDICATED WITH PRN NORCO FOR C/O PAIN ALL OVER.
[2019-01-06 12:00] VITALS: BP 147/72
--- NOTE | 2019-01-06 12:00 | NUR ---
EDMAR HELPED A LITTLE.
--- NOTE | 2019-01-06 14:00 | NUR ---
OTR assisted nursing staff in positioning patient for feeding. Patient yells out with pain with LLE extended to allow sitting up in bed. Hip and knee contractures present and abnormal flexor tone present. Patient needed max assist to roll and dependent for bed mobility. OTR will re-check after patient eats lunch. Suni Gomez OTR/anjelica
--- NOTE | 2019-01-06 14:00 | NUR ---
Ruby On Rails Engineer in to see patient. She is short term at [facility] and would like to return there upon discharge. She states she gets up and around in a wheelchair and that she has O2 @ 4L nc. workforce planner following.
--- NOTE | 2019-01-06 14:10 | NUR ---
PHYSICAL THERAPY Attempted to perform physical therapy evaluation however Pt was eating. Will try to evaluate at another date. Chloe doran, PT,DPT
--- NOTE | 2019-01-06 14:40 | NUR ---
Patient yelling out with nursing staff present. Nurse reports that patient was yelling out as nurse needed to apply heel protectors. Nursing was feeding staff lunch. OTR will attempt evaluation at a later date. Suni Gomez OTR/anjelica
--- NOTE | 2019-01-06 15:43 | NUR ---
MEDICATED WITH FLEXERIL AND NORCO PER ORDER. PATIENT CRYING SAYING HER LEGS AND BACK HURT. PATIENT IS REPETITIVE. YELLING HEY NURSE.
[2019-01-06 16:00] VITALS: BP 151/42
--- NOTE | 2019-01-06 16:30 | NUR ---
EDMAR MOSES HELPED.
--- NOTE | 2019-01-06 18:03 | NUR ---
DR. AMIN NOTIFIED OF CONSULT.
[2019-01-06 20:00] VITALS: BP 143/53
--- NOTE | 2019-01-06 21:17 | NUR ---
PATIENT MEDICATED WITH PRN TYLENOL FOR C/O GENERALIZED DISCOMFORT. WILL MONITOR FOR EFFECTIVENESS.
--- NOTE | 2019-01-06 22:00 | NUR ---
PATIENT SLEEPING QUIETLY IN BED. RESPIRATIONS EASY AND UNLABORED. PRN TYLENOL EFFECTIVE. BED ALARM ON FOR SAFETY. CALL LIGHT WITHIN REACH.
[2019-01-07] VITALS: BP 146/52
--- NOTE | 2019-01-07 00:23 | NUR ---
PATIENT MEDICATED WITH PRN NORCO & FLEXIRIL FOR C/O PAIN IN HER LEGS 01/15. CALL LIGHT WITHIN REACH. BED ALARM FOR SAFETY. WILL MONITOR FOR EFFECTIVENESS.
--- NOTE | 2019-01-07 01:00 | NUR ---
PATIENT SLEEPING IN BED. PRN MEDS EFFECTIVE.
--- NOTE | 2019-01-07 06:40 | NUR ---
PATIENT'S SUGAR WAS 67. PATIENT GIVEN APPLE JUICE AND CEREAL. BLOOD SUGAR RECHECK WAS 102.
[2019-01-07 07:24] LABS: CREATININE 2.77 mg/dL (0.55-1.02)
[2019-01-07 07:26] LABS: PHOSPHOROUS 2.4 mg/dL (2.5-4.9)
[2019-01-07 08:00] VITALS: BP 137/68
--- NOTE | 2019-01-07 09:00 | NUR ---
Treatment Technician in to see patient. No new needs or request at this time. When medically stable and precert is received she will be discharged to [facility]. assistant media planner following.
--- NOTE | 2019-01-07 09:00 | NUR ---
ASKED DR. LONG ABOUT IVF'S TO BE STOPPED, SHE SAID CALL [facility].
--- NOTE | 2019-01-07 09:20 | NUR ---
DR. CLIFFORD WHO IS WITH [facility] WILL ASK ABOUT IVF'S.
--- NOTE | 2019-01-07 09:27 | NUR ---
PHYSICAL THERAPY Physical therapy evaluation completed. Full details and evaluation to follow. Moderate complexity skilled PT evaluation performed (94870). PT will work on strength, bed mobility, transfers, balance, and safety per POC. Recommend SNF upon discharge. Thank you, Dulce Johns,SPT Marlin Joseph,PT,DPT
--- NOTE | 2019-01-07 09:27 | NUR ---
Occupational Therapy evaluation completed on 4 with full eval to follow. Precautions include fall risk, poor sit balance, left foot wound and 90 degrees flexion contractures,impaired cognition; memory and orientation to time, IV UE, high complexity level 80727 via chart review, testing and evaluation. Recommend OT per pOC to address feeding, grooming, bed mobility, sit balance and UE functional use and SNF upon d/c. Thank you. Suni Gomez OTR/l
--- NOTE | 2019-01-07 10:00 | NUR ---
DOCTORS WERE HERE AND CHANGED FOOT DRESSING. PATIENT IS SITTING IN CHAIR. MAX ASSIST X 2 PER THERAPY.
--- NOTE | 2019-01-07 10:30 | NUR ---
IVF'S HAVE BEEN DISCONTINUED.
[2019-01-07 12:00] VITALS: BP 148/63
--- NOTE | 2019-01-07 12:30 | NUR ---
PATIENT IS BACK IN BED. HEEL PROTECTORS IN USE. DRESSING TO L FOOT INTACT.
--- NOTE | 2019-01-07 13:26 | NUR ---
patient updated clinicals/therapy evals faxed to [facility] for precert for patient to return. waiting on auth
[2019-01-07 16:00] VITALS: BP 153/66
--- NOTE | 2019-01-07 18:00 | NUR ---
MEDICATED WITH PRN NORCO FOR C/O OF BACK PAIN. PATIENT YELLING WHAT DID SHE DO TO ME.
[2019-01-07 20:00] VITALS: BP 157/71
--- NOTE | 2019-01-07 22:56 | NUR ---
PATIENT COMPLAINS OF 8/10 BACK/LEG PAIN. MEDICATED PER ORDER. WILL CONTINUE TO MONITOR FOR RELIEF. VOICES NO OTHER CONCERNS AT THIS TIME. RESTING IN BED. CALL LIGHT WITHIN REACH.
--- NOTE | 2019-01-07 23:14 | NUR ---
PATIENT YELLING OUT. DOES NOT WANT TO BE POSITIONED ON THE SIDE THAT SHE IS CURRENTLY ON. EXPLAINED TO PATIENT THE REASONING AND THAT SHE NEEDS TO STAY OFF HER RIGHT HIP OR SHE WILL END UP WITH A BEDSORE. PATIENT CONTINUES TO YELL AND WANTS TO BE ON HER RIGHT SIDE. PLACED PATIENT ON RIGHT SIDE. EXPLAINED TO PATIENT THAT WE WOULD BE BACK IN TO REPOSITION HER OFF OF HER RIGHT HIP AGAIN. PATIENT VERBALIZED UNDERSTANDING
--- NOTE | 2019-01-07 23:53 | NUR ---
PATIENT MEDICATED WITH FLEXARIL FOR C/O MUSCLE CRAMPS/PAIN. RESTING IN BED AT THIS TIME. CALL LIGHT WITHIN REACH. CALLS OUT/YELLS FREQUENTLY
--- NOTE | 2019-01-07 23:57 | NUR ---
PAIN MED PARTIALLY EFFECTIVE. PATIENT STILL RESTLESS/YELLING OUT.
[2019-01-08] VITALS: BP 156/66
--- NOTE | 2019-01-08 00:07 | NUR ---
24 HR chart check completed.
--- NOTE | 2019-01-08 04:33 | NUR ---
PATIENT COMPLAINS OF LEG/BACK PAIN 11/15. MEDICATED PER ORDER. STILL CONTINUES TO YELL OUT. WILL MONITOR FOR RELIEF. BED LOW. CALL LIGHT WITHIN REACH.
--- NOTE | 2019-01-08 05:54 | NUR ---
Patient resting quietly with no c/o discomfort. Respirations easy and regular. Vital signs stable. No overt distress. CALL LIGHT WITHIN REACH HISSOM,NICOLE
--- NOTE | 2019-01-08 06:52 | NUR ---
SPOKE WITH DIALYSIS NURSE ABOUT PATIENTS SCHEDULED DIALYSIS THIS MORNING. STATE TO START GETTING PATIENT READY TO GO
[2019-01-08 06:55] LABS: CREATININE 3.34 mg/dL (0.55-1.02); PHOSPHOROUS 3.8 mg/dL (2.5-4.9); POTASSIUM 4.4 mmol/L (3.5-5.1)
[2019-01-08 08:00] VITALS: BP 128/56
--- NOTE | 2019-01-08 08:07 | NUR ---
OT NOTE Attempted to see pt this A.M. for OT session and upon arrival pt was out of the room for dialysis. Will check back at a later time/date and continue with POC as able. CHANTAL James/Surendra
--- NOTE | 2019-01-08 08:10 | NUR ---
PATIENT TRANSPORTED TO DIAYLSIS CLINIC.
--- NOTE | 2019-01-08 09:00 | NUR ---
Ink Grinder in to see patient. She is currently in dialysis. Will follow up at a later time. Plan is to return to [facility] when medically stable and after precert is received. digital media planner following.
--- NOTE | 2019-01-08 09:53 | NUR ---
PHYSICAL THERAPY Patient is in Dialysis at the present time. Will check back later. CHANEL MAX BUNDLE TIER AND LABELER
--- NOTE | 2019-01-08 10:01 | NUR ---
PATIENT STATES THAT NORCO WAS ALITTLE EFFETIVE FOR LEFT LEG PAIN, RATES PAIN 7/10. DR CLIFFORD AWARE.
--- NOTE | 2019-01-08 10:01 | NUR ---
PATIENT REQUESTING PAIN MEDICATION FOR LEFT LEG PAIN RATED 10/10 ON 0/10 SCALE. NORCO ADMINISTERED PRESCRIBED WHILE PATIENT IN DIAYLSIS. WILL MONITOR FOR EFFECTIVENESS.
--- NOTE | 2019-01-08 10:42 | NUR ---
updated clinical updates provided to [facility] for review and precert. waiting on auth
--- NOTE | 2019-01-08 11:30 | NUR ---
KPAD APPLIED TO LEFT THIGH ORDERED.
--- NOTE | 2019-01-08 11:42 | NUR ---
[facility] CALLED WITH NEW CONSULT.
[2019-01-08 12:00] VITALS: BP 135/33
--- NOTE | 2019-01-08 12:09 | NUR ---
FLEXERIL ADMINISTERED FOR LEFT LEG PAIN RATED 8/10 ON 0/10 SCALE. WILL MONITOR FOR EFFECTIVENESS.
--- NOTE | 2019-01-08 14:12 | NUR ---
OT NOTE Attempted to see pt this P.M. for OT session and upon arrival pt was supine in bed. Pt had reports of "severe L leg pain" and increased fatigue from dialysis. Requesting to rest at this time. Will check back at a later time/date and continue with POC as indicated. CHANTAL Babin/Surendra
--- NOTE | 2019-01-08 15:54 | NUR ---
PHYSICAL THERAPY CO-SIGN I approve of the Physical Therapy notes written above. ALEXUS GALEAS PT,DPT
[2019-01-08 16:00] VITALS: BP 148/32
--- NOTE | 2019-01-08 16:47 | NUR ---
Pt c/o pain 01/15. Aching pain left leg. Medicated as ordered. Verbalized relief. Resting quiely in bed. Respirations easy and regular. Skin warm and dry. No acute condition change noted at this time.
[2019-01-08 20:00] VITALS: BP 132/74
--- NOTE | 2019-01-08 20:00 | NUR ---
PATIENT COMPLAINS OF "ALL OVER" PAIN 11/15. YELLING OUT. MEDICATED WITH FLEXARIL. WILL CONTINUE TO MOINITOR FOR RELIEF. CALL LIGHT WITHIN REACH.
--- NOTE | 2019-01-08 21:00 | NUR ---
FLEXARIL EFFECTIVE. PATIENT RESTING IN BED. CALL LIGHT WITHIN REACH.
[2019-01-09] VITALS: BP 134/71
--- NOTE | 2019-01-09 00:20 | NUR ---
PATIENT COMPLAINING OF INSOMNIA. MEDICATED PER ORDER. RESTING IN BED AT THIS TIME. VOICES NO OTHER CONCERNS. CALL LIGHT WITHIN REACH.
--- NOTE | 2019-01-09 01:00 | NUR ---
RESTORIL EFFECTIVE. PATIENT SLEEPING. CALL LIGHT WITHIN REACH.
--- NOTE | 2019-01-09 01:22 | NUR ---
24 HR chart check completed.
--- NOTE | 2019-01-09 02:12 | NUR ---
24 HR chart check completed.
--- NOTE | 2019-01-09 04:41 | NUR ---
PATIENT COMPLAINS OF LEG/BACK PAIN 11/15. MEDICATED PER ORDER. VERBALIZED RELIEF. VOICES NO OTHER CONCERNS AT THIS TIME. RESTING IN BED. CALL LIGHT WITHIN REACH.
--- NOTE | 2019-01-09 05:45 | NUR ---
PATIENTS BLOOD SUGAR 76. ENCOURAGED TO DRINK JUICE/MILK AND EAT A FEW CRACKERS UNTIL BREAKFAST TRAY ARRIVES. CALL LIGHT WITHIN REACH.
--- NOTE | 2019-01-09 05:57 | NUR ---
Patient resting quietly with no c/o discomfort. Respirations easy and regular. Vital signs stable. No overt distress. HISSOM,NICOLE
[2019-01-09 06:47] LABS: BASO % 0.3 % (0.0-1.0); EOS # 0.6 10*3/uL (0.0-0.4); EOS % 6.4 % (1.0-4.0); HEMATOCRIT 37.2 % (37.0-47.0); HEMOGLOBIN 11.4 g/dl (12.0-16.0); LYMPH # 1.9 10*3/uL (1.3-4.4); LYMPH % 22.6 % (27.0-41.0); MEAN CELL VOLUME 93.7 fl (81.0-99.0); MEAN CORPUSCULAR HGB 28.7 pg (27.0-31.0); MEAN CORPUSCULAR HGB CONC 30.6 g/dl (33.0-37.0); MEAN PLATELET VOLUME 9.9 fl (9.6-12.3); MONO # 0.7 10*3/uL (0.1-1.0); MONO % 8.4 % (3.0-9.0); NEUT # 5.3 10*3/uL (2.3-7.9); NEUT % 62.1 % (47.0-73.0); PLATELET COUNT AUTOMATED 343 10*3/uL (130-400); RED BLOOD COUNT 3.97 10*6/uL (4.10-5.10); WHITE BLOOD COUNT 8.6 10*3/uL (4.8-10.8)
--- NOTE | 2019-01-09 06:53 | NUR ---
RECHECKED PATIENTS SUGAR. AFTER EATING CAME UP TO 117. PT RESTING IN BED. VOICES NO CONCERNS AT THIS TIME. CALL LIGHT WITHIN REACH.
[2019-01-09 06:57] LABS: CREATININE 2.77 mg/dL (0.55-1.02); POTASSIUM 4.5 mmol/L (3.5-5.1)
--- NOTE | 2019-01-09 09:00 | NUR ---
Cooler Conveyor Loader in to see patient. No new needs or request at this time. When medically stable and precert is received she will be discharged to [facility]. marine air ground task force planners following.
[2019-01-09 09:16] LABS: INTERNATIONAL NORM RATIO 0.9 (2.0-3.5)
--- NOTE | 2019-01-09 09:35 | NUR ---
PHYSICAL THERAPY Patient seen this am 1:1 for therapy and was supine in bed upon therapist arrival. Patient identified by name / and presented with increased L LE knee contracture. Patient transfers supine to sit EOB MAX A x 2, tolerating static EOB sit x several minutes, MAX A to maintain nuetral posture. Patient fatigues quickly with severe R side lean secondary to Flaccid R UE. Patient also with L foot drop which required Dependent sit to stand with use of gait belt for safety. Patient returned to supine in bed and remained with call light, tray table and bed alarm while positioned on L side for pressure relief. Will continue per POC as tolerated, total treatment time 13 minutes. Rao Daniels, CHAIN DYER
--- NOTE | 2019-01-09 09:37 | NUR ---
OT NOTE Pt was seen this A.M. 1:1 for 24 minute OT session. Upon arrival pt was supine in bed with head of bed elevated. Pt identified by name and and had complaints of L leg pain which she did not rate on 0-10 pain scale. Pt's breakfast tray arrived which she required maxA for set up of tray, pt was unable to manage the utensils and was unwilling to trial compensatory methods resulting in finger feeding, pt did require modA for management of drinks due to high spill risk with hot items. Pt then completed bed mobility from side to side with maxA X 2. Pt transferred supine to sit EOB with maxA X 2. Challenged pt's static sitting balance needed for enhanced safety and pt was able to maintain P- sitting balance requiring maxA to correct R lateral lean and forward flexion. Attempted to complete sit to stand with use of gait belt for safety and pt was a dependent transfer. Pt transferred back into bed sit to supine with maxA X 2. There she was left with call ligh tin hand, tray table in place, and bed alarm activated for safety. Continue with rec D/C plan to SNF. CHANTAL Babin/Surendra
[2019-01-09 12:00] VITALS: BP 149/59
--- NOTE | 2019-01-09 12:21 | NUR ---
PHYSICAL THERAPY CO-SIGN I approve of the Physical Therapy notes written above. ALEXUS GALEAS PT, DPT
--- NOTE | 2019-01-09 15:40 | NUR ---
Faxed palliative care order to [facility] and notified [facility] nurseTamara
[2019-01-09 16:00] VITALS: BP 112/67
--- NOTE | 2019-01-09 19:30 | NUR ---
TOOK OVER CARE OF PT AT THIS TIME. PT RESTING IN BED WITH EYES CLOSED. RESPIRATIONS EASY AND UNLABORED ON ROOM AIR. NO S/S OF DISTRESS. ALL SAFETY MEASURES IN PLACE. HOB ELEVATED. IV SITES PATENT. DRESSINGS SECURE. CALL LIGHT IN REACH.
[2019-01-09 20:00] VITALS: BP 142/55
--- NOTE | 2019-01-09 20:27 | NUR ---
NOTIFIED DR AQUINO OF PT MANUAL BP OF 172/100. GAVE PT HER ORDERED HS COREG 25 MG PO. ORDERS RECEIVED TO RECHECK PATIENT'S BLOOD PRESSURE IN 30 MINUTES AND TO REPORT READING TO PHYSICIAN. PT HAS NO COMPLAINTS OF HEADACHE OR BLURRED VISION. NO S/S OF DISTRESS. HR NSR 80S. WILL MONIOTOR.
[2019-01-09 22:32] VITALS: BP 140/60
[2019-01-10] VITALS (7 sets, daily range): BP systolic 128–145; BP diastolic 53–86
--- NOTE | 2019-01-10 | NUR ---
PT RESTING IN BED. VITALS WNL. RESPIRATIONS EASY AND UNLABORED. PT REPOSITIONED FOR COMFORT AT THIS TIME. WILL CONTINUE TO MONITOR. BED IN LOWEST POSITION, WHEELS LOCKED. CALL LIGHT IN REACH.
--- NOTE | 2019-01-10 04:18 | NUR ---
PT GIVEN NORCO AT THIS TIME FOR C/O PAIN TO LEFT LOWER EXTREMITY/HEEL. PT CALLING OUT IN PAIN. WILL MONITOR FOR EFFECTIVENESS. PT REPOSITIONED AT THIS TIME AND STATES THAT THE REPOSITIONING FEELS MORE COMFORTABLE. PT BED IN LOWEST POSITION WITH WHEELS LOCKED, BED ALARM IN PLACE. CALL LIGHT IN REACH.
--- NOTE | 2019-01-10 05:12 | NUR ---
NORCO NOT EFFECTIVE FOR PT AT THIS TIME. PT STILL CRYING OUT IN PAIN DUE TO LEFT LOWER EXTREMITY AND STATES THAT HER MUSCLES HURT. WILL MEDICATE PT WITH FLEXIRIL AND MONITOR FOR EFFECTIVENESS.
--- NOTE | 2019-01-10 05:17 | NUR ---
PT CONTINUES TO CRY OUT IN PAIN AT THIS TIME. PT STATES THAT HER LEGS, BUTTOCKS, AND LOWER BACK IS HURTING HER. RATES PAIN A 10/10. PT REFUSES TO TRY KPAD THAT IS SITTING ON BEDSIDE TABLE. PT GIVEN FLEXIRIL AND WILL MONITOR FOR EFFECTIVENESS OF MEDICATION.
--- NOTE | 2019-01-10 05:55 | NUR ---
NOTIFIED DR AQUINO THAT PT IS CONTINUING TO CALL OUT IN PAIN DESPITE BEING MEDICATED WITH NORCO AND FLEXIRIL. NO NEW ORDERS RECEIVED AT THIS TIME. WILL CONTINUE TO MONITOR PT PAIN.
--- NOTE | 2019-01-10 06:22 | NUR ---
PT IS RESTING IN BED, NO YELLING OUT IS HEARD AT THIS TIME. WILL CONTINUE TO MONITOR.
[2019-01-10 07:33] LABS: CREATININE 3.66 mg/dL (0.55-1.02); POTASSIUM 4.8 mmol/L (3.5-5.1)
--- NOTE | 2019-01-10 08:55 | NUR ---
DR. MAGANA INFORMED THAT PATIENT IS IN PAIN AND NORCO/FLEXERIL PREVIOUSLY GIVEN NOT EFFECTIVE.
--- NOTE | 2019-01-10 20:18 | NUR ---
PT YELLING OUT IN PAIN AT THIS TIME AND STATES THAT HER BACK AND LEGS HURT. PT ALSO APPEARS RESTLESS. NORCO AND RESTORIL GIVEN AT THIS TIME. BLOOD PRESSURE WNL. ALL SAFETY MEASURES IN PLACE. CALL LIGHT IN REACH.
--- NOTE | 2019-01-10 20:46 | NUR ---
PT C/O NAUSEA/STOMACH PAINS. ZOFRAN GIVEN AT THIS TIME VIA IV. IV SITE TO LEFT ANTECUBITAL PATENT AND FLUSHING WITH EASE. WILL MONITOR FOR EFFEFCTIVENESS. PT LYING IN BED, ALL SAFETY MEASURES IN PLACE. CALL LIGHT IN REACH.
--- NOTE | 2019-01-10 21:18 | NUR ---
PT APPEARS COMFORTABLE AT THIS TIME. WHILE IN ROOM ASSESSING PATIENT, PATIENT FALLS ASLEEP AND HAS NO COMPLAINTS. PT BLOOD PRESSURE OBTAINED VIA RIGHT LEG AND WNL. HS MEDS GIVEN. PT WAS ABLE TO STATE HER BIRTHDAY. PT KEEPS ASKING WHEN THE NURSES WILL BE BACK TO SIT WITH HER. PT HAS NO COMPLAINTS AT THIS TIME. RESPIRATIONS EASY AND UNLABORED ON ROOM AIR. ALL SAFETY MEASURES ARE IN PLACE. PT OFFERED KPAD THAT IS SITTING IN HER ROOM BUT DENIES WANTING TO USE IT AT THIS TIME. WILL CONTINUE TO MONITOR. CALL LIGHT IN REACH.
--- NOTE | 2019-01-10 21:46 | NUR ---
ZOFRAN APPEARS TO BE EFFECTIVE FOR PT. PT RESTING IN BED.
--- NOTE | 2019-01-10 23:10 | NUR ---
PT GIVEN MORPHINE 2 MG AT THIS TIME FOR C/O PAIN TO BILATERAL EXTREMITIES. PT IS CALLING OUT IN PAIN AND CRYING WHEN SHE IS REPOSITIONED. WILL MONITOR FOR EFFECTIVENESS. ALL VITALS WNL, SEE FLOWSHEET. SAFETY MEASURES IN PLACE, CALL LIGHT IN REACH.
[2019-01-11] VITALS: BP 122/51
--- NOTE | 2019-01-11 00:10 | NUR ---
MORPHINE EFFECTIVE. PT RESTING IN BED, NO LONGER CALLING OUT. ALL SAFETY MEASURES IN PLACE. CALL LIGHT IN REACH.
--- NOTE | 2019-01-11 01:56 | NUR ---
FLEXIRIL GIVEN TO PT AT THIS TIME FOR C/O MUSCLE PAIN TO BILATERAL LEGS. WILL MONITOR FOR EFFECTIVENESS. PT LYING IN BED. HOB SLIGHTLY ELEVATED PER PT REQUEST. ALL SAFETY MEASURES IN PLACE. CALL LIGHT IN REACH.
--- NOTE | 2019-01-11 02:56 | NUR ---
FLEXIRIL EFFECTIVE AT THIS TIME.
--- NOTE | 2019-01-11 05:55 | NUR ---
24 HR chart check completed.
[2019-01-11 06:46] LABS: BASO % 0.5 % (0.0-1.0); EOS # 0.6 10*3/uL (0.0-0.4); EOS % 6.7 % (1.0-4.0); HEMATOCRIT 36.5 % (37.0-47.0); LYMPH # 1.7 10*3/uL (1.3-4.4); LYMPH % 21.1 % (27.0-41.0); MEAN CELL VOLUME 93.6 fl (81.0-99.0); MEAN CORPUSCULAR HGB 28.2 pg (27.0-31.0); MEAN CORPUSCULAR HGB CONC 30.1 g/dl (33.0-37.0); MEAN PLATELET VOLUME 10.1 fl (9.6-12.3); MONO # 0.9 10*3/uL (0.1-1.0); MONO % 10.4 % (3.0-9.0); NEUT % 61.1 % (47.0-73.0); PLATELET COUNT AUTOMATED 285 10*3/uL (130-400); RED CELL DISTRI WIDTH 16.9 % (0-14.5); WHITE BLOOD COUNT 8.3 10*3/uL (4.8-10.8)
[2019-01-11 06:56] LABS: CREATININE 2.71 mg/dL (0.55-1.02)
--- NOTE | 2019-01-11 07:00 | NUR ---
PODIATRY ASKS THIS NURSE TO OBTAIN CONSENT FOR PT EXCISIONAL DIBRIDEMENT OF LEFT HEEL/WOUND VAC PLACEMENT. PT IS ALERT TO SELF/PERSON, BUT NOT PLACE AND TIME. NEXT OF KIN, PT -PEBBLES SINGH, NOTIFIED OF BEDSIDE DEBRIDEMENT AND WOUND VAC PLACEMENT. PT ASKED TO GIVE VERBAL CONSENT OVER PHONE TO TWO NURSES. TWO RNS VERIFY VIA VERBAL CONSENT THAT PT GIVES CONSENT. [facility] CONTACTED AND VERIFIED THAT MAKES DECISIONS FOR PATIENT ON THEIR END, WHEN PATIENT IS UNABLE TO MAKE HER DECISIONS. NURSING TANKER SERVICE ATTENDANT ALSO NOTIFIED AND STATES THAT IT IS OKAY TO RECEIVE CONSENT FROM SINCE HE IS HER NEXT OF KIN IN OUR SYSTEM. CONSENT PAPERS GIVEN TO PHYSICIAN.
--- NOTE | 2019-01-11 11:00 | NUR ---
PATIENT YELLING OUT IN PAIN. UPON ENTERING ROOM IT IS NOTED THAT PT HAD AN EPISODE OF EMESIS. ON ASSESSMENT OF IV, IT IS NOTICEABLY INFILTRATED. JACY HODGE MADE 2 UNSUCCESSFUL ATTEMPTS. BRYANNA LOUIE HAD A SUCCESS ATTEMPT TO L HAND. PRN MORPHINE AND ZOFRAN ADMINISTERED AT THIS TIME. BED IN LOWEST LOCKED POSITION. CALL LIGHT WITHIN REACH. WILL MONITOR FOR EFFECTIVENESS.
[2019-01-11 12:00] VITALS: BP 118/76
--- NOTE | 2019-01-11 13:00 | NUR ---
PATIENT SLEEPING PEACEFULLY AT THIS TIME. NO S/S OF DISTRESS OR PAIN NOTED. PRN MEDS CONSIDERED EFFECTIVE. WILL CONTINUE TO MONITOR.
--- NOTE | 2019-01-11 14:00 | NUR ---
IN TO ROOM. PATIENT STATING HER HIPS HURT. REPOSITIONED FOR COMFORT. PT STATES RELIEF. CALL LIGHT WITHIN REACH. BED LOCKED. BED ALARM ON.
--- NOTE | 2019-01-11 14:00 | NUR ---
IN TO ROOM. PATIENT SLEEPING IN BED. NO S/S OF DISTRESS OR SOB NOTED. BED IN LOWEST LOCKED POSITION AND CALL LIGHT WITHIN REACH. WILL CONTINUE TO MONITOR.
[2019-01-11 16:00] VITALS: BP 140/58
[2019-01-11 20:00] VITALS: BP 102/60; BP 95/71
--- NOTE | 2019-01-11 20:14 | NUR ---
PATIENT AWAKE. ALERT TO SELF ONLY.STATES THAT IT IS 1988 AND THAT SHE IS IN [facility]. DENIES ANY PAIN AT THIS TIME BUT COMPLAINS THAT HER LEGS FEEL STIFF. PATIENT GIVEN APPLESAUCE AND DRANK 1 MILK PER REQUEST. PATIENT HAS NO COMPLAINTS AT THIS TIME. BED ALARM ON. WILL MONITORL.
--- NOTE | 2019-01-11 21:44 | NUR ---
PATIENT MEDICATED WITH RESTORIL FOR RESTLESSNESS AND SLEEP. WILL MONITOR FOR EFFECTIVENESS.
--- NOTE | 2019-01-11 21:45 | NUR ---
PATIENT IV IN LEFT HAND NOT WORKING. IV DISCONTINUED. 2 ATTEMPTS MADE FOR NEW IV-UNSUCCESSFUL.
--- NOTE | 2019-01-11 22:44 | NUR ---
PATIENT RESTING WITH EYES CLOSED AT THIS TIME. NO DISTRESS NOTED. BED ALARM ON, CALL LIGHT WITHIN REACH. WILL MONITOR.
[2019-01-12] VITALS: BP 100/58; BP 94/56
--- NOTE | 2019-01-12 02:57 | NUR ---
PATIENT MEDICATED WITH IV MORPHINE WITH C/O BACK AND LEG PAIN. WILL MONITOR FOR EFFECTIVENESS.
--- NOTE | 2019-01-12 03:57 | NUR ---
PATIENT RESTING WITH EYES CLOSED.RESPIRATIONS EASY AND UNLABORED, NO DISTRESS NOTED. BED ALARM ON, CALL LIGHT WITHIN REACH. WILL MONITOR.
[2019-01-12 06:14] LABS: BASO % 0.4 % (0.0-1.0); EOS # 0.5 10*3/uL (0.0-0.4); EOS % 5.9 % (1.0-4.0); HEMOGLOBIN 11.6 g/dl (12.0-16.0); LYMPH # 1.5 10*3/uL (1.3-4.4); LYMPH % 19.9 % (27.0-41.0); MEAN CELL VOLUME 92.7 fl (81.0-99.0); MEAN CORPUSCULAR HGB 28.3 pg (27.0-31.0); MEAN CORPUSCULAR HGB CONC 30.5 g/dl (33.0-37.0); MEAN PLATELET VOLUME 10.3 fl (9.6-12.3); MONO # 0.6 10*3/uL (0.1-1.0); MONO % 7.5 % (3.0-9.0); PLATELET COUNT AUTOMATED 294 10*3/uL (130-400); WHITE BLOOD COUNT 7.6 10*3/uL (4.8-10.8)
[2019-01-12 06:38] LABS: CREATININE 3.49 mg/dL (0.55-1.02); POTASSIUM 4.6 mmol/L (3.5-5.1)
--- NOTE | 2019-01-12 07:35 | NUR ---
Spoke with Dr. Vigil regarding duplicate dressing change orders he stated he will take a look at it when he get here.
[2019-01-12 08:00] VITALS: BP 98/62
--- NOTE | 2019-01-12 08:00 | NUR ---
FRANCISCOCHARLES [id number] Please refer to the physician's history and physical for past medical history, comorbid conditions, and allergies. Diagnosis: UTI ENCEPHALOPATHY Wolfgang Score: 11,HIGH RISK WOUND DESCRIPTIONS: Wound Number: 1 Location of the wound: left heel Type of wound: unstagable Thickness: Full Size: 4.2cm x 2.5cm x 0.3cm Tunneling: none Undermining: none Sinus Tract: none Presence of Exudate: serosanguineous Amount: Light Color: Brown, yellow, red, black Odor: None Periwound Skin Appearance: Normal Wound edges: approximated Pain (associated with wound): none at time of assessment How does patient state this happened? pt unable to state how this happened stated october but is unknown of the date at time of assessment Wound Number: 2 Location of the wound: left elbow Type of wound: skin tear Thickness: Partial Size: 0.9cm x 0.6cm x 0.1cm Tunneling: none Undermining: none Sinus Tract: none Presence of Exudate: Sanguineous Amount: Light Color: Red Odor: None Periwound Skin Appearance: Normal Wound edges: approximated Pain (associated with wound): none at time of assessment How does patient state this happened? pt unable to state how this happenend Wound Number: 3 Location of the wound: coccyx Type of wound: stage 2 Thickness: Partial Size: 0.5cm x 0.6cm x 0.1cm Tunneling: none Undermining: none Sinus Tract: none Presence of Exudate: Serosanguineous Amount: Light Color: Red Odor: None Periwound Skin Appearance: Normal Wound edges: approximated Pain (associated with wound): none at time of assessment How does patient state this happened? pt unable to state how this happened Wound Number: 4 Location of the wound: right hand dorsal Type of wound: skin tear Thickness: Partial Size: 4.0cm x 3.0cm x 0.1cm Tunneling: none Undermining: none Sinus Tract: none Presence of Exudate: Serosanguineous Amount: Light Color: Red Odor: None Periwound Skin Appearance: Normal Wound edges: approximated Pain (associated with wound): none at time of assessment How does patient state this happened? pt unable to state how this happened Patient has multiple intact scabs noted to bilateral uppper extremities. No redness surrounding areas. No drainage noted at time of assessment. Patient has multiple ecchymotic areas noted at time of assessment to bilateral upper and lower extremities. Surface the patient is resting on: Isoflex SKIN PREVENTION RECOMMENDATION: 1. Pressure redistribution support surface as appropriate 2. Elevate heels 3. Remove boots/TEDS every shift and reapply 4. Head of bed 30 degrees as tolerated 5. Assess nutrition and hydration 6. Manage moisture 7. Avoid the use of containment devices while in bed 8. Use absorptive products on surfaces limit layers of linens on bed 9. Turn and reposition every 1-2 hours in bed and every 1 hour in chair as tolerated 10. Weight shifts every 15 minutes while up in chair 11. Offloading with pillows or device to keep heels elevated off bed 12. Monitor skin at least every shift 13. Inspect under medical devices twice a day WOUND TREATMENT RECOMMENDATIONS: Skin tear guidelines: Cleanse left elbow and right dorsal hand with nss and apply sureprep around the wound versatel to wound bed and therahoney to wound bed and cover with optifoam gentle. Continue Stage 2 guidelines: Cleanse coccyx with nss and apply sureprep around the wound therahoney to wound bed and cover with optifoam gentle
--- NOTE | 2019-01-12 08:52 | NUR ---
Dr. Herrera notified of wound care recommendations.
--- NOTE | 2019-01-12 10:05 | NUR ---
PHYSICAL THERAPY Patient seen this am 1:1 for therapy visit and was resting supine in bed upon therapist arrival. Patient presented with B heel protector boots and reports feeling really tired / weak this morning. Patient demonstrated increased difficulty focusing on task, requiring multiple v/c's to complete all therapy task this session. Patient transfers supine to sit EOB with MAX A x 2, tolerating static EOB sit x 10 minutes, Mod A to maintain nuetral upright position. Patient also demonstrates POOR trunk control with increased fatigue, including L foot drop and fairly flaccid R UE. Patient returned to supine in bed MAX A x 2 and remained with call light, tray table and bed alarm. Will continue per POC as tolerated, total treatment time 14 minutes. Rao Daniels, GRAIN ELEVATOR CLERK
--- NOTE | 2019-01-12 10:40 | NUR ---
OT NOTE Pt was seen this A.M. 1:1 for 20 minute OT session. Upon arrival pt was supine in bed. Pt identified by name and and had complaints of increased fatigue. Pt transferred supine to sit EOB with maxA X 2. While sitting EOB challenged pt's static sitting balance needed for increased I and enhanced safety in self care tasks. Pt was able to maintain P+ sitting balance throughout requiring modA to correct forward flexed posture and R lateral lean. Pt's breakfast tray arrived which she required maxA for set up of tray. Attempted for pt to complete self feeding using the utensils and pt was unable to grasp utensils. Once fork was positioned in pt's hand pt required maxA for piercing food due to bringing utensils to her mouth with no food in place. Pt downgraded task to finger feeding and was able to complete with SBA. Pt still required maxA for assist with all drinks due to spilling and being unable to grasp. Pt tolerated sitting EOB for aprox 10 minutes before transferring back into bed sit to supine with maxA X 2. There she was left with heel protectors in place, call light in hand, and bed alarm activated for safety. Continue with rec D/C plan to SNF. LILIANA Babin
--- NOTE | 2019-01-12 11:21 | NUR ---
Precert for this patient to return to [facility] was started on [id number] (6 days ago). Faxed clinical updates and therapy notes to [facility] to continue precert. waiting on auth.
[2019-01-12 12:00] VITALS: BP 95/61
--- NOTE | 2019-01-12 14:00 | NUR ---
Percocet given for c/o pain and Flexeril given for c/o muscle spasms. Will monitor.
--- NOTE | 2019-01-12 14:45 | NUR ---
Percocet and Flexeril effective. Patient is not screaming in pain, only for her grandmother.
[2019-01-12 16:00] VITALS: BP 123/76
[2019-01-12 20:00] VITALS: BP 132/55
--- NOTE | 2019-01-12 20:36 | NUR ---
24 HR chart check completed.
--- NOTE | 2019-01-12 21:00 | NUR ---
SLEEPING. NO DISTRESS NOTED. RESPIRATIONS EASY. LUNGS DIMINISHED, CLEAR.
--- NOTE | 2019-01-12 23:00 | NUR ---
MEDICATED WITH RESTORIL PER PRN ORDER TO ASSIST WITH SLEEP. WILL MONITOR
[2019-01-13] VITALS: BP 112/50; BP 70/42
--- NOTE | 2019-01-13 03:00 | NUR ---
CONTINUES TO SLEEP
--- NOTE | 2019-01-13 05:34 | NUR ---
YELLING OUT, "MY BUTT HURTS." UNABLE TO RATE PAIN. TURNED AND REPOSITIONED FOR COMFORT. MEDICATED WITH PERCOCET PER PRN ORDER. CALL LIGHT WITHIN REACH. WILL MONITOR
--- NOTE | 2019-01-13 08:23 | NUR ---
PT AT DIALYSIS AT THIS TIME. DIALYSIS NURSE REQUESTS MORPHINE FOR PATIENT DUE TO PATIENT CALLING OUT IN PAIN. PT COMPLAINS OF PAIN TO HER BILATERAL LEGS. MORPHINE WAS DISCONTINUED YESTERDAY AND PATIENT IS NOT DUE FOR HER PERCOCET AT THIS TIME. FLEXIRIL 10 MG GIVEN PER EMAR PRN ORDERS. DIALYSIS NURSE STATES THAT SHE WILL MONITOR FOR EFFECTIVENESS AND CALL IF PT NEEDS SOMETHING ELSE.
--- NOTE | 2019-01-13 08:54 | NUR ---
Dr. Vigil stated will be around later today to determine if a wound vac needs to be placed or not.
--- NOTE | 2019-01-13 09:00 | NUR ---
PHYSICAL THERAPY Patient was out of her room for dialysis this am and not available for therapy at this time. Will continue per POC as able. Rao Daniels, INFORMATION OFFICER
--- NOTE | 2019-01-13 09:58 | NUR ---
PT GIVEN 2 MG MORPHINE AT THIS TIME FOR PAIN DUE TO FLEXIRIL GIVEN PREVIOUSLY BEING INEFFECTIVE. DIALYSIS NURSE STATES THAT SHE WILL MONITOR FOR EFFECTIVENESS.
--- NOTE | 2019-01-13 10:00 | NUR ---
Tai Chi Instructor in to see patient. No new needs or request at this time. When medically stable and precert is received she will be discharged to [facility]. naval surface fire support planner following.
--- NOTE | 2019-01-13 10:58 | NUR ---
MORPHINE EFFECTIVE PER DIALYSIS NURSE.
[2019-01-13 12:00] VITALS: BP 133/50
--- NOTE | 2019-01-13 12:00 | NUR ---
Spoke to Dr. Vigil regarding wound vac. Patient will be discharged with wound vac. liaison planner notified. When medically stable and precert is received she will be discharged to [facility].
--- NOTE | 2019-01-13 12:02 | NUR ---
PT GIVEN PERCOCET DUE TO PT YELLING OUT IN PAIN TO LEGS/BUTTOCKS. ASSESSMENT COMPLETE ON PT AT THIS TIME. BLOOD PRESSURE WNL. RESPIRATIONS EASY AND UNLABORED ON ROOM AIR. WILL MONITOR FOR EFFECTIVENESS. PT LYING IN BED, ALL SAFETY MEASURES IN PLACE. CALL LIGHT IN REACH.
--- NOTE | 2019-01-13 13:20 | NUR ---
PHYSICAL THERAPY Patient was resting comfortably supine in bed and had just been medicated for pain following new wound vac on L LE. Patient unable to tolerate treatment at this time. Will continue per POC as able. Rao Daniels, NERY
--- NOTE | 2019-01-13 13:20 | NUR ---
ASSISTED DR HARRINGTON WITH APPLICATION OF WOUND VAC TO PT LEFT HEEL. PT TOLERATED WELL. SHIFT DIRECTOR AND WOUND CARE NURSE NOTIFIED.
--- NOTE | 2019-01-13 13:25 | NUR ---
OT NOTE Attempted to see pt this P.M. for OT session and upon arrival pt was supine in bed. Pt presented to therapy with increased fatigue due to dialysis, unable to follow commands, and pt's nurse reporting that medication was just given for placement of wound vac. Pt inappropriate for therapy at this time. Will check back at a later time/date and continue with POC as indicated. CHANTAL Babin/Surendra
--- NOTE | 2019-01-13 14:28 | NUR ---
Faxed clinical updates to [facility] to continue precert and to notify facility patient now has a wound vac and they will need to order one for this patient. Waiting on auth
[2019-01-13 16:03] VITALS: BP 94/56
--- NOTE | 2019-01-13 18:00 | NUR ---
PT LYING IN BED AT THIS TIME. NO S/S OF DISTRESS.PT SLEEPING. RESPIRATIONS EASY AND UNLABORED ON ROOM AIR. ALL SAFETY MEASURES IN PLACE. CALL LIGHT IN REACH.
--- NOTE | 2019-01-13 19:39 | NUR ---
24 HR chart check completed.
[2019-01-13 20:00] VITALS: BP 152/62
--- NOTE | 2019-01-13 20:01 | NUR ---
CRYING AND YELLING OUT. MEDICATED WITH FLEXERIL AND PERCOCET PER PRN ORDER FOR PAIN MANAGEMENT. CALL LIGHT WITHIN REACH. WILL MONITOR
--- NOTE | 2019-01-13 20:10 | NUR ---
PATIENT YELLING OUT IN PAIN, STATES UNABLE TO URINATE DESPITE URGE. DISTENDED. BLADDER SCAN REVEALS > 300 CC. STRAIGHT CATHED 300 CC DIANNA URINE.
--- NOTE | 2019-01-13 22:00 | NUR ---
CATAPRESS HELD, BP 152/62. PATIENT HAD LOW BP IN DIALYSIS AND REQUIRED IVF BOLUS. WILL MONITOR
--- NOTE | 2019-01-13 22:01 | NUR ---
EARLIER MEDS NOT EFFECTIVE, CONTINUES TO YELL OUT. MEDICATED WITH ATIVAN IV PER PRN ORDER. WILL MONITOR
--- NOTE | 2019-01-13 23:00 | NUR ---
MEDS EFFECTIVE, PATIENT RESTING WITH EYES CLOSED AND NO LONGER YELLING OUT. RESPIRATIONS EASY. CALL LIGHT WITHIN REACH. BED ALARM MAINTAINED FOR SAFETY
--- NOTE | 2019-01-13 23:57 | NUR ---
PATIENT RESTING WITH EYES CLOSED AT THIS TIME. RESPIRATIONS EASY AND UNLABORED. WOUND VAC ON AND FUNCTIONING PROPERLY. BED ALARM ON.CALL LIGHT WITHIN REACH.
[2019-01-14] VITALS: BP 143/56
--- NOTE | 2019-01-14 08:08 | NUR ---
24 HR chart check completed.
--- NOTE | 2019-01-14 08:30 | NUR ---
Cad Design Engineer in to see patient. No new needs or request at this time. When medically stable and precert is received she will be discharged to [facility]. strategic planner following.
--- NOTE | 2019-01-14 08:36 | NUR ---
OT NOTE Attempted to see pt this A.M. for OT session and upon arrival pt was found to have oral bleeding, slow to respond, and SpO2 of 88%. Notified pt's nurse [place] of findings. Pt inappropriate for therapy at this time. Will continue with POC as able. CHANTAL Babin/Surendra
--- NOTE | 2019-01-14 08:55 | NUR ---
PHYSICAL THERAPY Patient was supine in bed when approached for am therapy visit and presented with increased lethargic behaviour. Patient observed with blood tinged drool coming out of corner of mouth as nurse notified immediately. Per discussion with patient nurse, therapist advised to hold treatment and will check back with nurse this pm prior to second attempt. Will continue per POC as able. Rao Daniels, SUPERVISOR HOT STRIP MILL
[2019-01-14 09:16] LABS: BASO % 0.3 % (0.0-1.0); EOS # 0.4 10*3/uL (0.0-0.4); EOS % 3.4 % (1.0-4.0); HEMATOCRIT 36.1 % (37.0-47.0); LYMPH # 2.2 10*3/uL (1.3-4.4); LYMPH % 20.5 % (27.0-41.0); MEAN CELL VOLUME 92.6 fl (81.0-99.0); MEAN CORPUSCULAR HGB 28.2 pg (27.0-31.0); MEAN CORPUSCULAR HGB CONC 30.5 g/dl (33.0-37.0); MEAN PLATELET VOLUME 10.2 fl (9.6-12.3); MONO # 1.1 10*3/uL (0.1-1.0); MONO % 10.3 % (3.0-9.0); NEUT % 65.1 % (47.0-73.0); PLATELET COUNT AUTOMATED 302 10*3/uL (130-400); RED CELL DISTRI WIDTH 17.2 % (0-14.5); WHITE BLOOD COUNT 10.7 10*3/uL (4.8-10.8)
--- NOTE | 2019-01-14 09:30 | NUR ---
PT FOUND BY PHYSICAL THERAPY TO HAVE ORAL BLEEDING AND INFORMED RN. RN ASSESSED THE FOLLOWING AND NOTIFIED DR PUTNAM: BLOT CLOTS NOTED TO THE MOUTH ALONG GUM LINE, LEFT EYE SWOLLEN, LEFT FACIAL DROOP, LEFT EYE VERY SLUGGISH W/ A REACTIVE RIGHT PUPIL. PT DIFFICULT TO AROUSE WITH A BP OF 84/50, HR [address] ST DEPRESSION NOTED TO CM, SPO2 87% ON RA. 2LPM VIA NC APPLIED AND SPO2 ORLY TO 96%. LUNG ARE CLEAR, MURMUR NOTED, NO EDEMA TO EXTREMITIES. ORDERS FORTHCOMING. IV STARTED TO [place] FOR HEAD CT AND EKG PAGED FOR STAT EKG. NS BOLUS TO BE GIVEN.
[2019-01-14 09:32] LABS: ALBUMIN 2.1 gm/dl (3.1-4.5); CREATININE 3.13 mg/dL (0.55-1.02); POTASSIUM 4.5 mmol/L (3.5-5.1); TOTAL PROTEIN 6.4 gm/dL (6.4-8.2)
[2019-01-14 09:37] LABS: TROPONIN I 0.112 ng/ml (<0.045)
--- NOTE | 2019-01-14 11:15 | NUR ---
patient has received auth to return to [facility]. Patient can go today if medically stable for discharge.
[2019-01-14 12:00] VITALS: BP 137/43
[2019-01-14] MEDS ORDERED: PERCOCET 7.5 MG-325 PO (14:32)
[2019-01-14] MEDS ORDERED: ELIQUIS5 M1 PO (14:32)
[2019-01-14] MEDS ORDERED: VITAMIN D32000 UNI1 PO (14:32)
--- NOTE | 2019-01-14 14:51 | NUR ---
patient is discharged to return to [facility]. transportation scheduled for 4:30 with [facility]. NH, nursing, kitchen stewardess and all notified.
[2019-01-14 16:00] VITALS: BP 102/73
--- NOTE | 2019-01-14 16:20 | NUR ---
REPORT CALLED TO JAMAL AT [facility], ALL QUESTIONS ANSWERED TO HER SATISFACTION AT THIS TIME. MADE AWARE THAT PATIENT DOES HAVE A WOUND VAC TO LEFT HEEL AND THAT SHE IS TO BE SEEN IN THE WOUND CLINIC ON SATURDAY. AWAITING [facility] TO TRANSPORT PATIENT.
--- NOTE | 2019-01-14 16:40 | NUR ---
PATIENT DISCHARGED AT THIS TIME TO [facility]IA [facility]. ALL DISCHARGE INFORMATION SENT WITH AMBULANCE CREW,
--- NOTE | 2019-01-15 16:57 | NUR ---
OCCUPATIONAL THERAPY CO-SIGN I approve of the Occupational Therapy notes written above. PETR WATERMAN OTR/Surendra
== END 2019-01-14 16:40 | disposition other institution (70) | DRG 853 ==
LOC: ED 19:19 → 4E 23:52 → EDHOLD 23:52 → 4E 01-06 00:27
PROVIDERS: Emergency Medicine; Family Medicine; Internal Medicine; Student in an Organized Health Care Education/Training Program; ADMIT Internal Medicine
PROC: 5A1D70Z Performance of Urinary Filtration, Intermittent, Less than 6 Hours Per Day (ICD-10-PCS; principal; 2019-01-06)
PROC: 5A1D70Z Performance of Urinary Filtration, Intermittent, Less than 6 Hours Per Day (ICD-10-PCS; 2019-01-08)
PROC: 5A1D70Z Performance of Urinary Filtration, Intermittent, Less than 6 Hours Per Day (ICD-10-PCS; 2019-01-10)
PROC: 0JBR0ZZ Excision of Left Foot Subcutaneous Tissue and Fascia, Open Approach (ICD-10-PCS; 2019-01-11)
PROC: 5A1D70Z Performance of Urinary Filtration, Intermittent, Less than 6 Hours Per Day (ICD-10-PCS; 2019-01-13)
DX: A41.9 Sepsis, unspecified organism (principal); G93.41 Metabolic encephalopathy; N18.6 End stage renal disease; E43 Unspecified severe protein-calorie malnutrition; K29.31 Chronic superficial gastritis with bleeding; N39.0 Urinary tract infection, site not specified; N17.9 Acute kidney failure, unspecified; I13.2 Hypertensive heart and chronic kidney disease with heart failure and with stage 5 chronic kidney disease, or end stage renal disease; J98.11 Atelectasis; L97.429 Non-pressure chronic ulcer of left heel and midfoot with unspecified severity; Z68.1 Body mass index [BMI] 19.9 or less, adult; J44.9 Chronic obstructive pulmonary disease, unspecified; I50.9 Heart failure, unspecified; R07.89 Other chest pain; I25.10 Atherosclerotic heart disease of native coronary artery without angina pectoris; E83.41 Hypermagnesemia; E87.6 Hypokalemia; E83.39 Other disorders of phosphorus metabolism; R00.1 Bradycardia, unspecified; D47.3 Essential (hemorrhagic) thrombocythemia; I48.0 Paroxysmal atrial fibrillation; M54.9 Dorsalgia, unspecified; E78.5 Hyperlipidemia, unspecified; E11.51 Type 2 diabetes mellitus with diabetic peripheral angiopathy without gangrene; E11.22 Type 2 diabetes mellitus with diabetic chronic kidney disease; L40.50 Arthropathic psoriasis, unspecified; E11.65 Type 2 diabetes mellitus with hyperglycemia; R79.89 Other specified abnormal findings of blood chemistry; D63.8 Anemia in other chronic diseases classified elsewhere; I35.2 Nonrheumatic aortic (valve) stenosis with insufficiency; G89.29 Other chronic pain; K21.9 Gastro-esophageal reflux disease without esophagitis; E11.621 Type 2 diabetes mellitus with foot ulcer; W19.XXXS Unspecified fall, sequela; Z99.2 Dependence on renal dialysis; Z87.891 Personal history of nicotine dependence; I25.2 Old myocardial infarction; Z86.73 Personal history of transient ischemic attack (TIA), and cerebral infarction without residual deficits; Z88.0 Allergy status to penicillin; Z91.040 Latex allergy status; Z91.09 Other allergy status, other than to drugs and biological substances; Z91.81 History of falling; Z87.01 Personal history of pneumonia (recurrent); Z87.440 Personal history of urinary (tract) infections; Z82.49 Family history of ischemic heart disease and other diseases of the circulatory system; Z82.0 Family history of epilepsy and other diseases of the nervous system; Z84.1 Family history of disorders of kidney and ureter; Z83.3 Family history of diabetes mellitus; Z79.899 Other long term (current) drug therapy

== ENCOUNTER 2019-02-05 15:17 | Inpatient (IN) | payer BC, MEDICARE ==
[2019-02-05] VITALS: BP 181/53
[~2019-02-05] VITALS: Ht 157 cm; Wt 46.9 kg
[~2019-02-05 15:17] MED LIST changes: +AMIODARONE HYD200 MG PO; +CARAFATE1 G1 PO; +CLONIDINE HCL0.1 MG PO; +COZAAR100 MG PO; +CYCLOBENZAPRINE10 MG PO; +FEROSUL325 M1 PO; +LIPITOR80 MG PO; +MULTI-VITAMIN1 EACH PO; +NORCO 5-325 TA1 EACH PO; +PERCOCET 7.5 MG-325 PO; +VENTOLIN 02.5 MG/3 M INH; +VITAMIN D32000 UNI1 PO
[2019-02-05 16:12] VITALS: BP 144/58
[2019-02-05 17:01] LABS: BASO % 0.2 % (0.0-1.0); EOS # 0.1 10*3/uL (0.0-0.4); EOS % 0.5 % (1.0-4.0); HEMATOCRIT 34.9 % (37.0-47.0); HEMOGLOBIN 10.4 g/dl (12.0-16.0); LYMPH # 1.3 10*3/uL (1.3-4.4); LYMPH % 9.7 % (27.0-41.0); MEAN CELL VOLUME 95.4 fl (81.0-99.0); MEAN CORPUSCULAR HGB 28.4 pg (27.0-31.0); MEAN CORPUSCULAR HGB CONC 29.8 g/dl (33.0-37.0); MEAN PLATELET VOLUME 10.7 fl (9.6-12.3); MONO # 0.7 10*3/uL (0.1-1.0); MONO % 4.9 % (3.0-9.0); NEUT # 11.6 10*3/uL (2.3-7.9); NEUT % 84.2 % (47.0-73.0); PLATELET COUNT AUTOMATED 338 10*3/uL (130-400); RED BLOOD COUNT 3.66 10*6/uL (4.10-5.10); RED CELL DISTRI WIDTH 18.7 % (0-14.5); WHITE BLOOD COUNT 13.8 10*3/uL (4.8-10.8)
[2019-02-05 17:16] LABS: ACT PARTIAL THROMBO TIME 59.3 SECONDS (20.0-32.1)
[2019-02-05 17:20] LABS: ALBUMIN 1.6 gm/dl (3.1-4.5); CREATININE 1.73 mg/dL (0.55-1.02); TOTAL PROTEIN 6.5 gm/dL (6.4-8.2)
--- NOTE | 2019-02-05 17:21 | NUR ---
LACTIC 2.8 CALLED CRITICAL AT THIS TIME. BRIDGETTE ESPITIA NOTIFIED.
[2019-02-05 17:32] LABS: TROPONIN I 0.058 ng/ml (<0.045)
--- NOTE | 2019-02-05 17:32 | NUR ---
TROPONIN 0.058 CALLED CRITICAL AT THIS TIME.
--- NOTE | 2019-02-05 19:03 | NUR ---
REPORT GIVEN TO KRYSTLE LOUIE AT THIS TIME.
[2019-02-05 20:00] VITALS: BP 181/53
--- NOTE | 2019-02-05 20:05 | NUR ---
MESSAGE LEFT WITH NEPHROLOGY ANSWERING SERVICE FOR ROUTINE COUNSULT, CALLBACK NUMBER PROVIDED.
--- NOTE | 2019-02-05 20:29 | NUR ---
BRIDGETTE NIX PHARMACEUTICAL SALES AWARE OF CRITICAL TROPONIN. WOUND ASSESSMENT STILL NEEDS TO BE DONE.. NOT COMPLETED BY PREVIOUS RN.
--- NOTE | 2019-02-05 21:54 | NUR ---
DELAY IN STARTING IV FLUIDS DUE TO INABILITY TO OBTAIN PERIPHERAL IV ACCESS AFTER MULTIPLE ATTEMPTS. IV FLUIDS NOW INFUSING. IV MEREM WILL BE INITIATED FOLLOWING WOUND ASSESSMENT AND CULTURE.
--- NOTE | 2019-02-05 22:12 | NUR ---
BEGAN WOUND ASSESSMENT WITH BRIDGETTE NIX NP. ANTIBIOTICS LATE DUE TO WAITING TO DO WOUND ASSESSMENT AND OBTAIN CULTURE FIRST. WOUND ASSESSMENT WAS NOT DONE BY PREVIOUS RN. PATIENT HAS MULTIPLE WOUNDS
[2019-02-06] VITALS: BP 181/53
--- NOTE | 2019-02-06 | NUR ---
Time: 0000 A 73 year old MALE admitted to 4E under services of DERICK COSTA DO. Pt. arrived via bed from ER. Chief complaint: WOUND INFECTION, ELEVATED TROPONINS. PATIENT ORIENTED TO THE FLOOR 4E, CALL LIGHT DEMONSTRATED AND REINFORCED. ANNA MESSER
--- NOTE | 2019-02-06 00:04 | NUR ---
DR. CASTANEDA NOTIFIED OF CRITICAL TROPONIN RESULT. NO FURTHER ORDERS GIVEN AT THIS TIME.
[2019-02-06 04:00] VITALS: BP 159/51
[2019-02-06 07:06] LABS: BASO % 0.2 % (0.0-1.0); EOS # 0.1 10*3/uL (0.0-0.4); EOS % 0.5 % (1.0-4.0); HEMATOCRIT 31.2 % (37.0-47.0); HEMOGLOBIN 9.4 g/dl (12.0-16.0); LYMPH # 1.3 10*3/uL (1.3-4.4); LYMPH % 11.9 % (27.0-41.0); MEAN CELL VOLUME 92.6 fl (81.0-99.0); MEAN CORPUSCULAR HGB 27.9 pg (27.0-31.0); MEAN CORPUSCULAR HGB CONC 30.1 g/dl (33.0-37.0); MEAN PLATELET VOLUME 10.8 fl (9.6-12.3); MONO # 0.7 10*3/uL (0.1-1.0); MONO % 6.3 % (3.0-9.0); NEUT # 8.9 10*3/uL (2.3-7.9); NEUT % 80.5 % (47.0-73.0); PLATELET COUNT AUTOMATED 334 10*3/uL (130-400); RED BLOOD COUNT 3.37 10*6/uL (4.10-5.10); RED CELL DISTRI WIDTH 18.6 % (0-14.5)
[2019-02-06 07:14] LABS: ALBUMIN 1.5 gm/dl (3.1-4.5); CREATININE 2.04 mg/dL (0.55-1.02); FREE T4 1.41 ng/dl (0.76-1.46); PHOSPHOROUS 1.1 mg/dL (2.5-4.9); TOTAL PROTEIN 5.5 gm/dL (6.4-8.2)
[2019-02-06 07:18] LABS: THYROID STIM HORMONE (HS) 2.46 uIU/ml (0.358-4.75)
[2019-02-06 07:38] LABS: ACT PARTIAL THROMBO TIME 63.3 SECONDS (20.0-32.1)
[2019-02-06 07:51] LABS: VITAMIN D, 25-HYDROXY 30.6 ng/mL (30-100)
[2019-02-06 08:00] VITALS: BP 118/70
--- NOTE | 2019-02-06 08:47 | NUR ---
FRANCISCOCHARLES Perez [id number] Please refer to the physician's history and physical for past medical history, comorbid conditions, and allergies. Diagnosis: ELEVATED TROPONIN 1 LEVEL WOUND INFECTION Wolfgang Score: 8,VERY HIGH RISK WOUND DESCRIPTIONS: Wound Number: 1 Location of the wound: coccyx Type of wound: unstageable Thickness: Full Size: 6.0cm x 5.0cm x <0.1cm Tunneling: none Undermining: none Sinus Tract: none Presence of Exudate: Serous Amount: Light Color: Brown, yellow, red, black Odor: Foul Periwound Skin Appearance: Scar Wound edges: approximated Pain (associated with wound): tender to touch How does patient state this happened? pt unsure how this happened Wound Number: 2 Location of the wound: left heel Type of wound: unstageab;e Thickness: Full Size: 7.0cm x 7.5cm x <0.1cm Tunneling: none Undermining: none Sinus Tract: none Presence of Exudate: Serous Amount: Moderate Color: Black, yellow, red, dark purple Odor: Foul Periwound Skin Appearance: Erythema Wound edges: approximated Pain (associated with wound): none at time of assessment How does patient state this happened? pt unsure how this happened Wound Number: 3 Location of the wound: left knee Type of wound: DTI Size: 7.0cm x 2.5cm x <0.1cm Tunneling: none Undermining: none Sinus Tract: none Presence of Exudate: none Amount: None Color: Purple, dark red Odor: None Periwound Skin Appearance: Normal Wound edges: closed intact blood filled blister Pain (associated with wound): none at time of assessment How does patient state this happened? pt unsure how this happened Wound Number: 4 Location of the wound: left MTP Type of wound: DTI Size: 3.0cm x 2.5cm x <0.1cm Tunneling: none Undermining: none Sinus Tract: none Presence of Exudate: none Amount: None Color: Purple, dark red Odor: None Periwound Skin Appearance: Normal Wound edges: closed intact blood filled blister Pain (associated with wound): none at time of assessment How does patient state this happened? pt unsure how this happened Wound Number: 5 Location of the wound: left lower medial klein proximal Type of wound: DTI Size: 14.5cm x 3.2cm x <0.1cm Tunneling: none Undermining: none Sinus Tract: none Presence of Exudate: none Amount: None Color: Purple, dark red Odor: None Periwound Skin Appearance: Normal Wound edges: closed intact blood filled blister Pain (associated with wound): none at time of assessment How does patient state this happened? pt unsure how this happened Wound Number: 6 Location of the wound: left lower medial klein distal Type of wound: skin tear Size: 2.0cm x 2.5cm x <0.1cm Tunneling: none Undermining: none Sinus Tract: none Presence of Exudate: none Amount: None Color: red Odor: None Periwound Skin Appearance: Normal Wound edges: approximated Pain (associated with wound): none at time of assessment How does patient state this happened? pt unsure how this happened Wound Number: 7 Location of the wound: left dorsal foot Type of wound: DTI Size: 4.5cm x 3.5cm x <0.1cm Tunneling: none Undermining: none Sinus Tract: none Presence of Exudate: none Amount: None Color: dark red, purple Odor: None Periwound Skin Appearance: Normal Wound edges: closed intact blood filled blister Pain (associated with wound): none at time of assessment How does patient state this happened? pt unsure how this happened Wound Number: 8 Location of the wound: left great toe Type of wound: DTI Size: 2.5cm x 2.5cm x <0.1cm Tunneling: none Undermining: none Sinus Tract: none Presence of Exudate: none Amount: None Color: dark red, purple Odor: None Periwound Skin Appearance: Normal Wound edges: closed Pain (associated with wound): none at time of assessment How does patient state this happened? pt unsure how this happened Wound Number: 9 Location of the wound: left 5th toe plantar aspect of foot Type of wound: DTI Size: 2.5cm x 1.0cm x <0.1cm Tunneling: none Undermining: none Sinus Tract: none Presence of Exudate: none Amount: None Color: dark red, purple Odor: None Periwound Skin Appearance: Normal Wound edges: closed Pain (associated with wound): none at time of assessment How does patient state this happened? pt unsure how this happened Wound Number: 10 Location of the wound: left lateral malleolus Type of wound: DTI Size: 12.5cm x 8.5cm x <0.1cm Tunneling: none Undermining: none Sinus Tract: none Presence of Exudate: none Amount: None Color: dark red, purple Odor: None Periwound Skin Appearance: Normal Wound edges: intact blood filled blister Pain (associated with wound): none at time of assessment How does patient state this happened? pt unsure how this happened Wound Number: 11 Location of the wound: left medial mid foot Type of wound: DTI Size: 3.0cm x 2.5cm x <0.1cm Tunneling: none Undermining: none Sinus Tract: none Presence of Exudate: none Amount: None Color: dark red, purple Odor: None Periwound Skin Appearance: Normal Wound edges: intact blood filled blister Pain (associated with wound): none at time of assessment How does patient state this happened? pt unsure how this happened Wound Number: 12 Location of the wound: left elbow Type of wound: scab Size: 0.3cm x 0.6cm x <0.1cm Tunneling: none Undermining: none Sinus Tract: none Presence of Exudate: none Amount: None Color: brown, red Odor: None Periwound Skin Appearance: Normal Wound edges: approximated Pain (associated with wound): none at time of assessment How does patient state this happened? pt unsure how this happened Wound Number: 13 Location of the wound: volar aspect right distal forearm Type of wound: skin tear Thickness: Full Size: 1.8cm x 0.6cm x <0.1cm Tunneling: none Undermining: none Sinus Tract: none Presence of Exudate: none Amount: None Color: red , yellow, brown Odor: None Periwound Skin Appearance: Normal Wound edges: approximated Pain (associated with wound): none at time of assessment How does patient state this happened? pt unsure how this happened Wound Number: 14 Location of the wound: right hip Type of wound: stage 1 Size: 0.2cm x 0.2cm x <0.1cm Tunneling: none Undermining: none Sinus Tract: none Presence of Exudate: none Amount: none Color: red Odor: None Periwound Skin Appearance: Normal Wound edges: closed Pain (associated with wound): none at time of assessment How does patient state this happened? pt unsure how this happened Wound Number: 15 Location of the wound: right knee Type of wound: DTI Size: 2.0cm x 4.5cm x <0.1cm Tunneling: none Undermining: none Sinus Tract: none Presence of Exudate: none Amount: None Color: dark red, purple Odor: None Periwound Skin Appearance: Normal Wound edges: closed Pain (associated with wound): none at time of assessment How does patient state this happened? pt unsure how this happened Wound Number: 16 Location of the wound: left buttocks Type of wound: DTI Size: 6.5cm x 5.5cm x <0.1cm Tunneling: none Undermining: none Sinus Tract: none Presence of Exudate: none Amount: None Color: dark red, purple Odor: None Periwound Skin Appearance: Normal Wound edges: closed Pain (associated with wound): none at time of assessment How does patient state this happened? pt unsure how this happened Wound Number: 17 Location of the wound: left 5th toe proximal Type of wound: DTI Size: 1.5cm x 1.2cm x <0.1cm Tunneling: none Undermining: none Sinus Tract: none Presence of Exudate: none Amount: None Color: dark red, purple Odor: None Periwound Skin Appearance: Normal Wound edges: closed Pain (associated with wound): none at time of assessment How does patient state this happened? pt unsure how this happened Wound Number: 18 Location of the wound: left 5th toe distal Type of wound: DTI Size: 0.5cm x 0.6cm x <0.1cm Tunneling: none Undermining: none Sinus Tract: none Presence of Exudate: none Amount: None Color: dark red, purple Odor: None Periwound Skin Appearance: Normal Wound edges: closed Pain (associated with wound): none at time of assessment How does patient state this happened? pt unsure how this happened Surface the patient is resting on: Isoflex SKIN PREVENTION RECOMMENDATION: 1. Pressure redistribution support surface as appropriate 2. Elevate heels 3. Remove boots/TEDS every shift and reapply 4. Head of bed 30 degrees as tolerated 5. Assess nutrition and hydration 6. Manage moisture 7. Avoid the use of containment devices while in bed 8. Use absorptive products on surfaces limit layers of linens on bed 9. Turn and reposition every 1-2 hours in bed and every 1 hour in chair as tolerated 10. Weight shifts every 15 minutes while up in chair 11. Offloading with pillows or device to keep heels elevated off bed 12. Monitor skin at least every shift 13. Inspect under medical devices twice a day WOUND TREATMENT RECOMMENDATIONS: Continue wheelchair cushion when oob. Continue heel raiser pro boots while in bed. Continue full thickness guidelines to coccyx. Dr. Zuñiga already on consult for possible debridement D/C partial thickness guidelines to left malleolous. D/C partial thickness guidelines to left great toe. 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 Imaging studies to left foot due to non-healing wound. Consult podiatry for possible debridement if studies allow. Skin tear guidelines: Cleanse left lower medial klein with nss and apply sureprep around the wound hydrogel to wound bed versatel to wound bed and cover with abd pad and lightly wrap with kerlix Unstageable guidelines: Cleanse left heel with nss and apply sureprep around the wound therahoney to wound bed and cover with abd pad and lightly wrap with kerlix daily and prn for soiling. DTI guidelines: Apply sureprep to left MTP, left medial klein proximal, left dorsal aspect of foot, left great toe, left 5th toe proximal, left 5th toe distal, left plantar aspect of 5th toe, left lateral malleolus, left medial mid foot, right knee, and left buttocks allow time to dry then cover with abd pad and lightly wrap with kerlix daily and prn for soiling. Cleanse left elbow with nss and apply surprep around the wound hydrogel to wound bed and cover with optifoam gentle. Stage 1 guidelines: Apply sureprep to right hip and allow time to dry then cover with optifoam gentle.
--- NOTE | 2019-02-06 08:59 | NUR ---
CONSULT CALLED TO DR BROOKS REGARDING WOUND DEBRIDEMENT. PHYSICIAN STATES TO LEAVE PATIENT NPO FOR NOW AND HE WILL SEE HER WHEN HE ARRIVES.
--- NOTE | 2019-02-06 11:21 | NUR ---
Patient comes from [facility] and is currently transistioning [facility]. At this time she is medicaid pending, therefore she does not require staying here while they are working on precert. She does require the PT and OT evals and a precert to be started, but does not need to stay here while waiting on auth to return.
--- NOTE | 2019-02-06 11:50 | NUR ---
PT STILL NPO AT THIS TIME. WILL CATCH PT UP ON PO MEDICATIONS AFTER DR BROOKS SEES HER.
--- NOTE | 2019-02-06 11:55 | NUR ---
Dr. Chambers notified of wound care recommendations.
--- NOTE | 2019-02-06 13:00 | NUR ---
DR BROOKS IS IN TO SEE PATIENT AT THIS TIME AND OBSERVES COCCYX WOUND. PHYSICIAN DOES NOT PLAN SURGICAL INTERVENTION AT THIS TIME AND STATES THAT PT CAN NOW EAT/DRINK.
--- NOTE | 2019-02-06 13:25 | NUR ---
NOTIFIED DR GRUBBS OF THE PODIATRY CONSULT. PHYSICIAN STATES THAT HE WILL BE UP TO SEE PATIENT.
--- NOTE | 2019-02-06 14:20 | NUR ---
PT WOUNDS DRESSED AT THIS TIME PER ORDERS PLACED BY RESIDENTS. PT TOLERATED WELL. ALL DRESSINGS ARE C/D/I AT THIS TIME. WILL CONTINUE TO MONITOR PT. ALL SAFETY MEASURES IN PLACE. CALL LIGHT IN REACH.
--- NOTE | 2019-02-06 16:10 | NUR ---
Nursing screen and occupational therapy referral received. Thank you Suni Gomez OTR/l
--- NOTE | 2019-02-06 16:53 | NUR ---
PT RESTING IN BED UPON ENTERING ROOM. EASILY AROUSED TO VERBAL STIMULI. PT LETHARGIC AND DOES NOT TALK. PT AGREES TO TAKE EVENING MEDICATIONS AND DRINKS ABOUT 120CC WATER WITH HER MEDS. PT IS REFUSING TO TRY HER DINNER AT THIS TIME. PT DENIES ANY PAIN OR DISTRESS. RESPIRATIONS ARE EASY AND UNLABORED. WILL CONTINUE TO MONITOR. SAFETY MEASURES IN PLACE. CALL LIGHT IN REACH.
[2019-02-06 20:00] VITALS: BP 140/58
--- NOTE | 2019-02-06 22:27 | NUR ---
DR GOOD HERE, TO PLACE IV, PATIENT HAD INFILTRATE OF RIGHT HAND IV AND ARM VERY SWOLLEN. [address] INTO RIGHT UPPER ARM BY DR GOOD AT THIS TIME
[2019-02-07] VITALS: BP 136/44
[2019-02-07 06:03] LABS: BASO % 0.2 % (0.0-1.0); EOS # 0.1 10*3/uL (0.0-0.4); EOS % 1.1 % (1.0-4.0); HEMATOCRIT 31.5 % (37.0-47.0); HEMOGLOBIN 9.4 g/dl (12.0-16.0); LYMPH # 1.7 10*3/uL (1.3-4.4); LYMPH % 15.4 % (27.0-41.0); MEAN CELL VOLUME 92.6 fl (81.0-99.0); MEAN CORPUSCULAR HGB 27.6 pg (27.0-31.0); MEAN CORPUSCULAR HGB CONC 29.8 g/dl (33.0-37.0); MEAN PLATELET VOLUME 10.8 fl (9.6-12.3); MONO # 0.6 10*3/uL (0.1-1.0); MONO % 5.8 % (3.0-9.0); NEUT # 8.5 10*3/uL (2.3-7.9); NEUT % 77.1 % (47.0-73.0); PLATELET COUNT AUTOMATED 355 10*3/uL (130-400); RED CELL DISTRI WIDTH 18.4 % (0-14.5)
[2019-02-07 06:15] LABS: ALBUMIN 1.4 gm/dl (3.1-4.5); CREATININE 2.61 mg/dL (0.55-1.02); TOTAL PROTEIN 5.6 gm/dL (6.4-8.2)
--- NOTE | 2019-02-07 06:20 | NUR ---
PATIENT MEDICATED WITH MORPHINE PER DRS ORDERS FOR COMPLAINTS OF PAIN. PATIENT MOANING, STATES SHES IN PAIN. RN WILL MONITOR FOR RELIEF OF SYMPTOMS '
[2019-02-07 06:32] LABS: POTASSIUM 5.1 mmol/L (3.5-5.1)
[2019-02-07 08:00] VITALS: BP 120/40
--- NOTE | 2019-02-07 08:10 | NUR ---
PT MOANING AND C/O GENERALIZED PAIN OF 8. PERCOCET GIVEN AT THIS TIME. WILL CONT TO MONITOR. CALL LIGHT IN REACH.
--- NOTE | 2019-02-07 09:10 | NUR ---
PT RESTING WITH EYES SHUT. WILL CONT TO MONITOR. CALL LIGHT IN REACH.
[2019-02-07 12:00] VITALS: BP 153/80
--- NOTE | 2019-02-07 12:25 | NUR ---
PHYSICAL THERAPY PT SCREEN COMPLETED TODAY: PATIENT FROM [facility] WITH MULTIPLE WOUNDS AND NURSING RECOMMENDS NO PT TODAY. WILL ATTEMPT ANOTHER DAY. THANK YOU FOR REFERRAL SASKIA PERKINS PT
--- NOTE | 2019-02-07 12:47 | NUR ---
PT MOANING AND C/O PAIN BUT CAN'T SAY WHERE. NORCO GIVEN AT THIS TIME. WILL CONT TO MONITOR. CALL LIGHT IN REACH.
--- NOTE | 2019-02-07 19:07 | NUR ---
REPORT RECEIVED ON PT AT THIS TIME. PT RESTING IN BED WITH NO S/S OF DISTRESS. SAFETY MEASURES IN PLACE. CALL LIGHT IN REACH.
[2019-02-07 19:30] VITALS: BP 116/70
--- NOTE | 2019-02-07 19:37 | NUR ---
PT CRYING OUT IN PAIN. PATIENT STATES THAT PAIN IS PRIMARILY DUE TO HER WOUND ON HER COCCYX AND HER WOUNDS TO HER LEFT LEG. MORPHINE 2 MG GIVEN AT THIS TIME VIA IV TO RIGHT UPPER EXTREMITY. IV SITE IS PATENT AND FLUSHING. ASSESSMENT IS COMPLETE ON PT. BLOOD PRESSURE AND HR WNL. WILL CONTINUE TO MONITOR. CALL LIGHT IN REACH.
[2019-02-07 20:00] VITALS: BP 116/21
--- NOTE | 2019-02-07 20:35 | NUR ---
PT CONTINUES TO YELL OUT IN AGITATION/PAIN. PT APPEARS ANXIOUS, WELL. PER DR GOOD, PT IS TO HAVE 0.5MG ATIVAN VIA IV X 1 NOW. WILL MEDICATE PT WHEN MEDICATION IS AVAILABLE TO PULL.
--- NOTE | 2019-02-07 20:59 | NUR ---
PT GIVEN ATIVAN AT THIS TIME. WILL MONITOR FOR EFFECTIVENESS. RESPIRATIONS EASY AND UNLABORED. SUPPLEMENTAL OXYGEN IN TACT. CALL LIGHT IN REACH.
--- NOTE | 2019-02-07 21:59 | NUR ---
ATIVAN EFFECTIVE. PT RESTING WITH EYES CLOSED. RESPIRATIONS EASY AND UNLABORED WITH 2L NC IN PLACE. NO S/S OF DISTRESS AT THIS TIME. SAFETY MEASURES IN PLACE. CALL LIGHT IN REACH. WILL MONITOR EFFECTIVENESS OF MEDICATION
[2019-02-08] VITALS: BP 121/36
--- NOTE | 2019-02-08 01:00 | NUR ---
PT RESTING IN BED, RESPIRATIONS EASY AND UNLABORED ON 2L NC. SAFETY MEASURES IN PLACE. CALL LIGHT IN REACH.
--- NOTE | 2019-02-08 06:30 | NUR ---
PT RESTING IN BED, EASILY AROUSED BUT LETHARGIC. POX 100% ON 2L, HEART RATE 60S. PT REFUSING AM MEDICATIONS AT THIS TIME. WILL ATTEMPT TO GIVE TO PATIENT AT A DIFFERENT TIME. SAFETY MEASURES IN PLACE, CALL LIGHT IN REACH.
[2019-02-08 06:42] LABS: BASO % 0.1 % (0.0-1.0); EOS # 0.1 10*3/uL (0.0-0.4); EOS % 0.9 % (1.0-4.0); HEMATOCRIT 30.7 % (37.0-47.0); HEMOGLOBIN 9.2 g/dl (12.0-16.0); LYMPH # 1.1 10*3/uL (1.3-4.4); LYMPH % 10.7 % (27.0-41.0); MEAN CELL VOLUME 93.6 fl (81.0-99.0); MEAN PLATELET VOLUME 10.6 fl (9.6-12.3); MONO # 0.7 10*3/uL (0.1-1.0); MONO % 6.6 % (3.0-9.0); NEUT # 8.6 10*3/uL (2.3-7.9); NEUT % 81.3 % (47.0-73.0); PLATELET COUNT AUTOMATED 365 10*3/uL (130-400); RED BLOOD COUNT 3.28 10*6/uL (4.10-5.10); RED CELL DISTRI WIDTH 18.3 % (0-14.5); WHITE BLOOD COUNT 10.6 10*3/uL (4.8-10.8)
[2019-02-08 06:53] LABS: CREATININE 1.72 mg/dL (0.55-1.02)
[2019-02-08 07:31] LABS: POTASSIUM 4.1 mmol/L (3.5-5.1)
[2019-02-08 08:00] VITALS: BP 128/49
--- NOTE | 2019-02-08 09:00 | NUR ---
DR QUINONES NOTIFIED OF INCREASED SWELLING IN THE PATIENT'S RIGHT ARM COMPARED TO YESTERDAY AND COOL TO TOUCH.
--- NOTE | 2019-02-08 10:37 | NUR ---
C/O PAIN TO ARMS OF 12/16. NORCO GIVEN AT THIS TIME. WILL CONT TO MONITOR. CALL LIGHT IN REACH.
--- NOTE | 2019-02-08 11:37 | NUR ---
PT IN BED RESTING QUIETLY.
--- NOTE | 2019-02-08 11:38 | NUR ---
PT RESTING AT THIS TIME. WILL CONT TO MONITOR. CALL LIGHT IN REACH.
[2019-02-08 12:00] VITALS: BP 141/39
[2019-02-08 16:00] VITALS: BP 123/36
--- NOTE | 2019-02-08 17:15 | NUR ---
AIDE SAT PATIENT UP FOR DINNER TO FEED HER. PT WAS TALKING WITH THE AIDE. THE AIDE GAVE HER A DRINK OF COFFEE AND THE PATIENT STARTED CHOKING. PT RECOVERED. DR MONAE NOTIFIED. PULSE OX REMAINS 100% ON 2L AND ALL VSS. NEW ORDERS RECEIVED FOR EKG AND CXR
[2019-02-08 20:00] VITALS: BP 122/38
--- NOTE | 2019-02-08 20:47 | NUR ---
DR GOOD AWARE OF BLOOD PRESSURE. STATES TO HOLD CATAPRES
[2019-02-09] VITALS: BP 114/40
--- NOTE | 2019-02-09 03:28 | NUR ---
24 HR chart check completed.
--- NOTE | 2019-02-09 04:48 | NUR ---
RESPIRATIONS EASY AND REGULAR, BED ALARM ON, CALL LIGHT IN REACH
--- NOTE | 2019-02-09 05:59 | NUR ---
PATIENT ARROUSES TO VERBAL STIMULI. LETHARGIC AT THIS TIME.
[2019-02-09 07:10] LABS: BASO % 0.2 % (0.0-1.0); EOS # 0.1 10*3/uL (0.0-0.4); HEMATOCRIT 29.4 % (37.0-47.0); HEMOGLOBIN 8.7 g/dl (12.0-16.0); LYMPH # 1.4 10*3/uL (1.3-4.4); LYMPH % 12.6 % (27.0-41.0); MEAN CELL VOLUME 92.7 fl (81.0-99.0); MEAN CORPUSCULAR HGB 27.4 pg (27.0-31.0); MEAN CORPUSCULAR HGB CONC 29.6 g/dl (33.0-37.0); MEAN PLATELET VOLUME 10.3 fl (9.6-12.3); MONO # 0.7 10*3/uL (0.1-1.0); MONO % 6.2 % (3.0-9.0); NEUT # 8.8 10*3/uL (2.3-7.9); NEUT % 79.4 % (47.0-73.0); PLATELET COUNT AUTOMATED 398 10*3/uL (130-400); RED BLOOD COUNT 3.17 10*6/uL (4.10-5.10); WHITE BLOOD COUNT 11.1 10*3/uL (4.8-10.8)
[2019-02-09 07:25] LABS: CREATININE 2.48 mg/dL (0.55-1.02); POTASSIUM 4.3 mmol/L (3.5-5.1)
[2019-02-09 08:00] VITALS: BP 126/34
--- NOTE | 2019-02-09 09:18 | NUR ---
Updated clinicals faxed to [facility] for review. 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 Patient can return when medically stable for discharge.
--- NOTE | 2019-02-09 10:42 | NUR ---
DR BROOKS IN TO SEE SCARAL WOUND. NO NEW ORDERS AT THIS TIME.
[2019-02-09 12:00] VITALS: BP 113/56
--- NOTE | 2019-02-09 12:44 | NUR ---
DR ARIAS'S OFFICE NOTIFIED OF CONSULT
--- NOTE | 2019-02-09 14:47 | NUR ---
PT MAONING OUT AND STATES SHE HAS PAIN "EVERYWHERE". MEDICATED WITH MORPHINE IV PER REQUEST. CALL LIGHT IN REACH. WILL MONITOR
[2019-02-09 16:00] VITALS: BP 114/41
--- NOTE | 2019-02-09 16:00 | NUR ---
MEDICATION EFFECTIVE. PT RESTING QUIETLY, RESP EASY AND NONLABORED. CALL LIGHT IN REACH. WILL MONITOR
[2019-02-09 20:00] VITALS: BP 102/49
--- NOTE | 2019-02-09 21:01 | NUR ---
PATIENT RESTING IN BED MOANING. DENIES PAIN. STATES "THIS TV SHOW IS STUPID". REORIENTED TO TIME AND PLACE. SCHEDULED MEDICATIONS TAKEN WITHOUT DIFFICULTY. BED ALARM ON, BED IN LOWEST POSITION, CALL LIGHT IN REACH
[2019-02-10] VITALS: BP 142/69
--- NOTE | 2019-02-10 01:16 | NUR ---
24 HR chart check completed.
--- NOTE | 2019-02-10 06:43 | NUR ---
PATIENT OFF FLOOR TO DIALYSIS AT THIS TIME
[2019-02-10 06:49] LABS: BASO % 0.2 % (0.0-1.0); EOS # 0.2 10*3/uL (0.0-0.4); EOS % 1.4 % (1.0-4.0); HEMATOCRIT 33.5 % (37.0-47.0); LYMPH # 1.4 10*3/uL (1.3-4.4); LYMPH % 12.1 % (27.0-41.0); MEAN CELL VOLUME 91.8 fl (81.0-99.0); MEAN CORPUSCULAR HGB 27.4 pg (27.0-31.0); MEAN CORPUSCULAR HGB CONC 29.9 g/dl (33.0-37.0); MEAN PLATELET VOLUME 10.3 fl (9.6-12.3); MONO # 0.6 10*3/uL (0.1-1.0); MONO % 5.5 % (3.0-9.0); NEUT % 80.3 % (47.0-73.0); PLATELET COUNT AUTOMATED 443 10*3/uL (130-400); RED BLOOD COUNT 3.65 10*6/uL (4.10-5.10); RED CELL DISTRI WIDTH 17.8 % (0-14.5); WHITE BLOOD COUNT 11.2 10*3/uL (4.8-10.8)
[2019-02-10 07:49] LABS: CREATININE 3.12 mg/dL (0.55-1.02); POTASSIUM 4.1 mmol/L (3.5-5.1)
[2019-02-10 12:00] VITALS: BP 103/39
--- NOTE | 2019-02-10 13:52 | NUR ---
Patient not available for Occupational Therapy evaluation as she is with the doctor. Suni Gomez Otr/L
[2019-02-10 16:00] VITALS: BP 106/47
[2019-02-10 20:00] VITALS: BP 107/31
--- NOTE | 2019-02-10 20:29 | NUR ---
NOTIFIED OF BP 107/31. NO NEW ORDERS RECEIVED AT THIS TIME.
[2019-02-10 21:30] VITALS: BP 136/41
--- NOTE | 2019-02-10 22:55 | NUR ---
HELD CATAPRES PER NURSING JUDGEMENT FOR LOW BP.
--- NOTE | 2019-02-10 23:09 | NUR ---
PT LAYING IN BED RESTING. DENIES ANY PAIN AT THIS TIME. NO COMPLAINTS AT THIS TIME. PT STATES "IM JUST VERY TIRED." PRESSURES HAVE BEEN RUNNING LOW, BUT PT IS ALERT AND ASYMPTOMATIC. CALL LIGHT WITHIN REACH.
[2019-02-11] VITALS: BP 123/31
--- NOTE | 2019-02-11 00:33 | NUR ---
NOTIFIED OF BP 123/31. NO NEW ORDERS RECEIVED.
--- NOTE | 2019-02-11 01:03 | NUR ---
24 HR chart check completed.
--- NOTE | 2019-02-11 04:32 | NUR ---
Upon discharge recommend patient to follow up for wound care in outpatient setting continue current wound care orders at discharging facility.
[2019-02-11 06:02] LABS: CREATININE 2.15 mg/dL (0.55-1.02); POTASSIUM 4.3 mmol/L (3.5-5.1)
[2019-02-11 06:09] LABS: BASO % 0.1 % (0.0-1.0); EOS # 0.2 10*3/uL (0.0-0.4); EOS % 1.7 % (1.0-4.0); HEMATOCRIT 29.1 % (37.0-47.0); HEMOGLOBIN 8.6 g/dl (12.0-16.0); LYMPH # 1.3 10*3/uL (1.3-4.4); LYMPH % 11.6 % (27.0-41.0); MEAN CELL VOLUME 90.7 fl (81.0-99.0); MEAN CORPUSCULAR HGB 26.8 pg (27.0-31.0); MEAN CORPUSCULAR HGB CONC 29.6 g/dl (33.0-37.0); MEAN PLATELET VOLUME 10.3 fl (9.6-12.3); MONO # 0.7 10*3/uL (0.1-1.0); MONO % 6.8 % (3.0-9.0); NEUT # 8.6 10*3/uL (2.3-7.9); NEUT % 79.3 % (47.0-73.0); PLATELET COUNT AUTOMATED 452 10*3/uL (130-400); RED BLOOD COUNT 3.21 10*6/uL (4.10-5.10); RED CELL DISTRI WIDTH 17.6 % (0-14.5); WHITE BLOOD COUNT 10.8 10*3/uL (4.8-10.8)
[2019-02-11 08:00] VITALS: BP 130/47
[2019-02-11] MEDS ORDERED: PERCOCET 7.5 MG-325 PO (09:25)
--- NOTE | 2019-02-11 09:45 | NUR ---
Patient is discharged to return to [facility]. Transportation scheduled for 1PM with [facility]. [facility], nursing/prison warden notified. Attempted to call , left voicemail.
--- NOTE | 2019-02-11 09:51 | NUR ---
SPOKE WITH DR EFRNANDEZ, PODITARY. HE STATES TO PASS ALONG TO PRIMARY TEAM PT NEEDS TO SEE A VASCULAR SURGEON RE: LLE WOUND. DR QUINONES NOTIFIED.
--- NOTE | 2019-02-11 12:30 | NUR ---
WOUND DISCHARGE PHOTOS TAKEN EXCEPT LLE PODITARY HAD ALREADY DONE DRSG FOR TODAY.
--- NOTE | 2019-02-11 13:26 | NUR ---
Discharge instructions reviewed with patient/family. Patient receptive and verbalizes understanding. Follow-up care arranged. Written instructions given to patient/family. CHELLY MILLER
--- NOTE | 2019-02-11 13:26 | NUR ---
REPORT CALLED TO MINISTERIO HUYNH
== END 2019-02-11 13:26 | DRG 871 ==
LOC: ED → 4E 17:56 → EDHOLD 17:56 → 4E 19:14
PROVIDERS: Hospitalist; Internal Medicine; Nurse Practitioner Family; ADMIT Family Medicine
PROC: 5A1D70Z Performance of Urinary Filtration, Intermittent, Less than 6 Hours Per Day (ICD-10-PCS; principal; 2019-02-07)
DX: A41.9 Sepsis, unspecified organism (principal); G93.41 Metabolic encephalopathy; E43 Unspecified severe protein-calorie malnutrition; N18.6 End stage renal disease; K29.51 Unspecified chronic gastritis with bleeding; L03.319 Cellulitis of trunk, unspecified; E87.2 Acidosis; I13.2 Hypertensive heart and chronic kidney disease with heart failure and with stage 5 chronic kidney disease, or end stage renal disease; Z68.1 Body mass index [BMI] 19.9 or less, adult; R74.0 Nonspecific elevation of levels of transaminase and lactic acid dehydrogenase [LDH]; R65.20 Severe sepsis without septic shock; E78.5 Hyperlipidemia, unspecified; E87.6 Hypokalemia; J44.9 Chronic obstructive pulmonary disease, unspecified; L40.50 Arthropathic psoriasis, unspecified; E11.22 Type 2 diabetes mellitus with diabetic chronic kidney disease; I50.9 Heart failure, unspecified; I48.0 Paroxysmal atrial fibrillation; G89.29 Other chronic pain; E55.9 Vitamin D deficiency, unspecified; I25.10 Atherosclerotic heart disease of native coronary artery without angina pectoris; K21.9 Gastro-esophageal reflux disease without esophagitis; D63.8 Anemia in other chronic diseases classified elsewhere; L89.150 Pressure ulcer of sacral region, unstageable; R79.89 Other specified abnormal findings of blood chemistry; E11.51 Type 2 diabetes mellitus with diabetic peripheral angiopathy without gangrene; E11.621 Type 2 diabetes mellitus with foot ulcer; L97.529 Non-pressure chronic ulcer of other part of left foot with unspecified severity; Z88.0 Allergy status to penicillin; Z91.040 Latex allergy status; Z82.49 Family history of ischemic heart disease and other diseases of the circulatory system; I25.2 Old myocardial infarction; Z99.2 Dependence on renal dialysis; Z86.73 Personal history of transient ischemic attack (TIA), and cerebral infarction without residual deficits; Z79.01 Long term (current) use of anticoagulants; Z84.1 Family history of disorders of kidney and ureter; Z79.4 Long term (current) use of insulin